=== PATIENT | female | born 1935 | race Caucasian/White ===

== ENCOUNTER 2016-11-09 16:12 | Inpatient (IN) | payer OTHER, MEDICARE ==
[2016-11-09] VITALS (9 sets, daily range): BP systolic 123–160; BP diastolic 67–95; PULSE 104–129; RESP 16–20; TEMP 97.2–97.8; O2SAT 86–97
[~2016-11-09] VITALS: Ht 162.6 cm; Wt 58.3 kg
[~2016-11-09 16:12] MED LIST: CART120C2 PO; FOLI400T PO; FOLI5CAP PO; LEFL1TAB3 PO; LEFL20 PO; METH2.5T PO; PANT40TA3 PO; PROT40TA PO; ULTR50TA5 PO
[2016-11-09] MEDS ORDERED: SODIUM CHLORIDE 0.9% FLUSH 5 ML FLUSH IVF PRN (16:30)
[2016-11-09] MEDS ORDERED: SODIUM CHLOR 0.9% 1000 ML INJ 1,000 ML IV ONE (16:30)
[2016-11-09] MEDS ORDERED: LEVOFLOXACIN 750 MG PREMIX INJ 150 ML IV ONE (16:30)
[2016-11-09] MEDS ORDERED: methylPREDNISolone SOD SUCC 125 MG/2 ML VIAL IVP ONE (16:30)
[2016-11-09] MEDS: RESP: ALBUTEROL 2.5 MG/IPRATROPIUM 0.5 MG NEB (SCH) INH ×3 (16:35→22:07)
[2016-11-09] MEDS ORDERED: PRED5TAB PO (16:36)
[2016-11-09] MEDS ORDERED: IPRAAER INH (16:36)
[2016-11-09] MEDS ORDERED: ALBU.5I NEB (16:36)
[2016-11-09] MEDS ORDERED: CART240C PO (16:37)
--- NOTE | 2016-11-09 17:01 | RADHPO ---
EXAM DATE/TIME: 11/09/2016 16:42 [place] COMPARISON: CHEST SINGLE AP, July 21, 2016, 20:50. INDICATIONS : Shortness of breath for 2 days MEDICAL HISTORY : Chronic obstructive pulmonary disease. Emphysema. Asthma SURGICAL HISTORY : None. ENCOUNTER: Initial ACUITY: 2 days PAIN SCORE: 0/10 LOCATION: Bilateral chest FINDINGS: A single view of the chest demonstrates the lungs to be symmetrically aerated without evidence of mas s, infiltrate or effusion. The cardiomediastinal contours are unremarkable. Osseous structures are intact. CONCLUSION: No acute disease. Tatyana Dee MD on November 09, 2016 at 16:59 Board Certified Radiologist. This report was verified electronically.
[2016-11-09 17:21] LABS: AUTOMATED NEUTROPHIL # 3.5 TH/MM3 (1.8-7.7); BASOPHIL # 0.1 TH/MM3 (0-0.2); EOSINOPHIL # 0.1 TH/MM3 (0-0.4); EOSINOPHIL % 1.5 % (0.0-4.0); HEMATOCRIT 38.9 % (35.0-46.0); HEMO FLAGS DIFF FINAL; LYMPH % 24.8 % (9.0-44.0); LYMPHOCYTE # 1.4 TH/MM3 (1.0-4.8); MEAN CELL VOLUME 94.6 FL (80.0-100.0); MEAN CORPUSCULAR HEMOGLOBIN 30.8 PG (27.0-34.0); MEAN CORPUSCULAR HGB CONC 32.5 % (32.0-36.0); MONO % 8.7 % (0.0-8.0); PLATELET COUNT 238 TH/MM3 (150-450); RED BLOOD COUNT 4.12 MIL/MM3 (4.00-5.30); RED CELL DISTRIBUTION WIDTH 16.2 % (11.6-17.2); WHITE BLOOD COUNT 5.6 TH/MM3 (4.0-11.0)
[2016-11-09 17:32] LABS: CHLORIDE 110 MEQ/L (98-107); POTASSIUM 3.6 MEQ/L (3.5-5.1); SODIUM (NA) 147 MEQ/L (136-145)
[2016-11-09 17:35] LABS: ANION GAP 10 MEQ/L (5-15); BICARBONATE 26.6 MEQ/L (21.0-32.0); BLOOD UREA NITROGEN 15 MG/DL (7-18)
[2016-11-09 17:38] LABS: ALT (GPT) 15 U/L (10-53); AST (GOT) 14 U/L (15-37); GLOMERULAR FILTRATION RATE 107 ML/MIN (>89)
[2016-11-09 17:40] LABS: TOTAL BILIRUBIN ADULT 0.3 MG/DL (0.2-1.0)
[2016-11-09 17:41] LABS: ALKALINE PHOSPHATASE 82 U/L (45-117)
--- NOTE | 2016-11-09 17:57 | PD ---
HPI Chief Complaint: Respiratory Distress Time Seen by Provider: 16:17 Travel History International Travel<30 days: No Contact w/Intl Traveler<30days: No Traveled to known affect area: No History of Present Illness HPI 81-year-old female presents with shortness of breath and cough and congestion over the past couple of days. She denies any fever or other concurrent complaints. She states she feels worse when she moves around. She denies other modifying factors. Quality is hard to catch breath. She states she typically only wears oxygen at night with 2 L but has had it where it over the past day or so but did not wear it here as it is not easily portable. She states that Dr. 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 She denies other modifying factors. PFSH Past Medical History Hx Anticoagulant Therapy: No Arthritis: Yes (PSORIATIC ARTHRITIS) Asthma: Yes Blood Disorders: No Heart Rhythm Problems: Yes (RAPID HEART RATE) Cancer: Yes (BASAL CELL CHIN, RIGHT FOREARM, NOSE) Cardiovascular Problems: Yes Chemotherapy: No COPD: Yes (2LPM NC HS PRN) Diabetes: No Diminished Hearing: No Endocrine: No Gastrointestinal Disorders: Yes (ESOPHAGEAL STRICTURES) Genitourinary: Yes (OCCASIONAL STRESS INCONTINENCE) Hypertension: Yes Immune Disorder: No Implanted Vascular Access Dvce: No Musculoskeletal: Yes Neurologic: Yes (RIGHT LEG WEAKNESS) Psychiatric: No Reproductive: No Respiratory: Yes Integumentary: Yes (shingles) Immunizations Current: Yes Radiation Therapy: No Shingles: Yes (10/2015) Thyroid Disease: No Tetanus Vaccination: Unknown Menopausal: Yes Tubal Ligation: Yes Past Surgical History AICD: Yes Arteriovenous Shunt: No Gynecologic Surgery: Yes (TUBAL LIGATION) Insulin Pump: No Joint Replacement: No Pacemaker: No Other Surgery: Yes (SEVERED ACHILLES TENDON - CASTED) Social History Alcohol Use: Yes (2-3 DRINKS PER NIGHT) Tobacco Use: No (QUIT ) Substance Use: No Allergies-Medications (Allergen,Severity, Reaction): Coded Allergies: Codeine (Verified Allergy, Mild, NAUSEA, 09/06/16) Sulfa (Verified Allergy, Mild, UNKNOWN, 09/06/16) Reported Meds & Prescriptions Reported Meds & Active Scripts Active Reported Cartia Xt (Diltiazem ER 24 HR) 240 Mg Caper 240 Mg PO DAILY Combivent Respimat Inh (Ipratropium-Albuterol Inh) 20-100 Retirement/Act Aero 1 Puff INH QID PRN Prednisone 5 Mg Tab 5 Mg PO DAILY Albuterol Neb (Albuterol Sulfate) 2.5 Mg/0.5 Ml Neb 2.5 Mg NEB TID NEB PRN Note: The Albuterol Sulfate Inhalation Solution is concentrated and must be diluted. Read complete instructions carefully before using. Methotrexate 2.5 Mg Tab 2.5 Mg PO Q7D Folic Acid 5 Mg Cap 5 Mg PO DAILY Leflunomide 20 Mg Tab 20 Mg PO DAILY Folic Acid 400 Mcg Tab 400 Mcg PO DAILY Protonix (Pantoprazole Sodium) 40 Mg Tab 40 Mg PO DAILY Ultram (Tramadol HCl) 50 Mg Tab 50 Mg PO Q6H PRN Review of Systems Except as stated in HPI: all other systems reviewed are Neg Physical Exam Narrative GENERAL: Well-nourished, well-developed patient. SKIN: Warm and dry. HEAD: Normocephalic and atraumatic. EYES: No injection or drainage. ENT: No nasal drainage noted. NECK: Supple, trachea midline. CARDIOVASCULAR: Regular rate and rhythm RESPIRATORY: Decreased aeration with faint expiratory wheezing bilaterally. No accessory muscle use. Tachypnea GASTROINTESTINAL: Abdomen soft, non-tender, nondistended. EXTREMITIES: No edema. NEUROLOGICAL: Awake and alert. Motor and sensory grossly within normal limits. Normal speech. Data Data Last Documented VS Vital Signs Date Time Temp Pulse Resp B/P Pulse Ox O2 Delivery O2 Flow Rate FiO2 11/09/16 17:54 128 16 156/77 96 Nasal Cannula 3 11/09/16 16:42 50 11/09/16 16:21 97.8 Orders Electrocardiogram (11/09/16 16:28) Complete Blood Count With Diff (11/09/16 16:28) Comprehensive Metabolic Panel (11/09/16 16:28) Chest, Single Ap (11/09/16 16:28) Ecg Monitoring (11/09/16 16:28) Iv Access Insert/Monitor (11/09/16 16:28) Oximetry (11/09/16 16:28) Oxygen Administration (11/09/16 16:28) Methylprednisolone So Succ Inj (Solumedr (11/09/16 16:30) Albuterol-Ipratropium Neb (Duoneb Neb) (11/09/16 16:30) Sodium Chloride 0.9% Flush (Ns Flush) (11/09/16 16:30) Lactic Acid Sepsis Protocol (11/09/16 16:28) Urinalysis - C+S If Indicated (11/09/16 16:28) Blood Culture (11/09/16 16:28) Sodium Chlor 0.9% 1000 Ml Inj (Ns 1000 M (11/09/16 16:30) Levofloxacin 750 Mg Premix Inj (Levaquin (11/09/16 16:30) Admit Order (Ed Use Only) (11/09/16 18:42) Labs Laboratory Tests Test 11/09/16 16:50 White Blood Count 5.6 TH/MM3 Red Blood Count 4.12 MIL/MM3 Hemoglobin 12.7 GM/DL Hematocrit 38.9 % Mean Corpuscular Volume 94.6 FL Mean Corpuscular Hemoglobin 30.8 PG Mean Corpuscular Hemoglobin 32.5 % Concent Red Cell Distribution Width 16.2 % Platelet Count 238 TH/MM3 Mean Platelet Volume 7.4 FL Neutrophils (%) (Auto) 64.0 % Lymphocytes (%) (Auto) 24.8 % Monocytes (%) (Auto) 8.7 % Eosinophils (%) (Auto) 1.5 % Basophils (%) (Auto) 1.0 % Neutrophils # (Auto) 3.5 TH/MM3 Lymphocytes # (Auto) 1.4 TH/MM3 Monocytes # (Auto) 0.5 TH/MM3 Eosinophils # (Auto) 0.1 TH/MM3 Basophils # (Auto) 0.1 TH/MM3 CBC Comment DIFF FINAL Differential Comment Sodium Level 147 MEQ/L Potassium Level 3.6 MEQ/L Chloride Level 110 MEQ/L Carbon Dioxide Level 26.6 MEQ/L Anion Gap 10 MEQ/L Blood Urea Nitrogen 15 MG/DL Creatinine 0.55 MG/DL Estimat Glomerular Filtration 107 ML/MIN Rate Random Glucose 106 MG/DL Lactic Acid Level 1.4 mmol/L Calcium Level 9.1 MG/DL Total Bilirubin 0.3 MG/DL Aspartate Amino Transf 14 U/L (AST/SGOT) Alanine Aminotransferase 15 U/L (ALT/SGPT) Alkaline Phosphatase 82 U/L Total Protein 6.5 GM/DL Albumin 3.4 GM/DL MDM Medical Decision Making Medical Screen Exam Complete: Yes Emergency Medical Condition: Yes Medical Record Reviewed: Yes (past history confirmed) Interpretation(s) CBC & BMP Diagram 11/09/16 16:50 Last 24 hours Impressions Chest X-Ray 11/09/16 1628 Signed Impressions: Service Date/Time: Wednesday, November 09, 2016 16:42 - CONCLUSION: No acute disease. Tatyana Dee MD EKG shows normal sinus rhythm without STEMI criteria artifact limits inferior leads Differential Diagnosis COPD exacerbation, pneumonia, URI, acute renal failure, anemia.... Narrative Course Will check blood work, chest x-ray and dose with DuoNeb's and Solu-Medrol and reevaluate Patient has improved aeration but still with inspiratory and expiratory wheezing and is now on 4 L of nasal cannula to maintain oxygen saturation. She normally is not on oxygen during the day. She agrees to admission for further care Physician Communication Physician Communication dr kumar agrees to admit Diagnosis Primary Impression: COPD (chronic obstructive pulmonary disease) Qualified Code: J44.1 - Chronic obstructive pulmonary disease with acute exacerbation Admitting Information Admitting Physician Requests: Admit Bonnie Raphael MD Nov 09, 2016 17:57
[2016-11-09] MEDS ORDERED: ACETAMINOPHEN 325 MG TAB PO PRN (18:45)
[2016-11-09] MEDS ORDERED: MAGNESIUM HYDROXIDE SUSP 30 ML CUP PO PRN (18:45)
[2016-11-09] MEDS ORDERED: ONDANSETRON HCL 4 MG/2 ML VIAL IVP PRN (18:45)
[2016-11-09] MEDS ORDERED: NALOXONE HCL 0.4 MG/ML AMP IV PRN (18:45)
[2016-11-09] MEDS ORDERED: RESP: ALBUTEROL 2.5 MG/3 ML NEB (PRN) INH (18:45)
[2016-11-09] MEDS ORDERED: BISACODYL 10 MG SUPP PR PRN (18:45)
[2016-11-09 19:02] LABS: BLOOD GAS BASE EXCESS -1.8 mmol/L (-2-2); BLOOD GAS CARBOXYHEMOGLOBIN 0.9 % (0-4); BLOOD GAS HCO3 23 mmol/L (22-26); BLOOD GAS METHEMOGLOBIN 2.4 % (0-2); BLOOD GAS O2 HGB SATURATION 90 % (90-100); BLOOD GAS OXYGEN CONTENT 14.9 Vol % (12.0-20.0); BLOOD GAS PCO2 40 mmHG (38-42); BLOOD GAS PO2 73 mmHG (61-120); BLOOD GAS TOTAL HGB 11.7 G/DL (12.0-16.0); CRITICAL VALUE NO; DRAW SITE RT RADIAL; FIO2 36 %; LITER FLOW 4 L/M; NUMBER OF ARTERIAL PUNCTURES 1; OXYGEN DEVICE NASAL CANNULA; STAT YES; TEMP CORR TO 98.6; ULNAR PULSE PRESENT
[2016-11-09] MEDS ORDERED: ENOXAPARIN SODIUM 40 MG/0.4 ML SYRINGE SQ SCH (20:00)
[2016-11-09] MEDS ORDERED: AZITHROMYCIN 250 MG TAB PO SCH (20:00)
[2016-11-09] MEDS: DOCUSATE SODIUM 100 MG CAP PO SCH (20:37)
[2016-11-09] MEDS: SODIUM CHLORIDE 0.9% FLUSH 5 ML FLUSH FLUSH SCH (20:38)
[2016-11-09] MEDS: SODIUM CHLORIDE 0.9% FLUSH 5 ML FLUSH FLUSH PRN (22:33)
[2016-11-09] MEDS: methylPREDNISolone SOD SUCC 125 MG/2 ML VIAL IVP SCH (22:33)
[2016-11-09 22:41] LABS: BLOOD, URINE NEG (NEG); GLUCOSE,URINE 250 mg/dL (NEG); KETONE, URINE 15 mg/dL (NEG); NITRITE,URINE NEG (NEG); PH, URINE 5.5 (5.0-8.5)
[2016-11-09 22:50] LABS: RBC, URINE 0-2 /hpf (0-3); SQUAMOUS EPITHELIAL CELL URINE 0-5 /hpf (0-5); URINE COLOR YELLOW (YELLW/STRAW); WBC, URINE 0-2 /hpf (0-5)
[2016-11-09 22:51] LABS: COMMENT (UR) CULT NOT INDICATED; CULTURE IF INDICATED CULT NOT INDICATED
[2016-11-10] MEDS ORDERED: METOPROLOL TARTRATE 25 MG TAB PO ONE
[2016-11-10 01:31] VITALS: PULSE 130
[2016-11-10] MEDS: RESP: ALBUTEROL 2.5 MG/IPRATROPIUM 0.5 MG NEB (SCH) INH ×3 (03:41→11:47)
[2016-11-10 04:00] VITALS: BP 141/83; PULSE 109; RESP 20; TEMP 96.3; O2SAT 95
[2016-11-10] MEDS: methylPREDNISolone SOD SUCC 125 MG/2 ML VIAL IVP SCH ×2 (06:06→10:36)
[2016-11-10] MEDS: SODIUM CHLORIDE 0.9% FLUSH 5 ML FLUSH FLUSH PRN (06:06)
[2016-11-10 08:00] VITALS: BP 148/87; PULSE 107; RESP 20; TEMP 96.3; O2SAT 96
[2016-11-10] MEDS: DOCUSATE SODIUM 100 MG CAP PO SCH (09:23)
[2016-11-10] MEDS: SODIUM CHLORIDE 0.9% FLUSH 5 ML FLUSH FLUSH SCH (09:23)
[2016-11-10 10:40] VITALS: PULSE 110
[2016-11-10 12:00] VITALS: BP 114/72; PULSE 111; RESP 20; TEMP 96.2; O2SAT 95
--- NOTE | 2016-11-10 13:24 | HHI.HP ---
[facility] Primary Care Physician Alvaro Pablo MD Admission Diagnosis copd exacerbation Diagnoses: (1) Chronic obstructive pulmonary disease with acute exacerbation Diagnosis: Principal Chief Complaint: Shortness of breath and dyspnea Travel History International Travel<30 Days: No Contact w/Intl Traveler <30 Da: No Traveled to Known Affected Are: No History of Present Illness 81-year-old female with known history of COPD, cirrhotic arthritis who presented to hospital because of shortness of breath and dyspnea. Patient states that over the last 1-1/2 weeks he has been having upper respiratory cold symptoms include runny nose, sore throat, cough, congestion, postnasal drip area history try to manage on her own and then calmed Monday morning her symptoms started getting worse with worsening shortness of breath. Cough with phlegm production that was white and then proceeded to be yellow coloration. She does have primary medical doctor Dr. Pablo and watch parts inspector Dr. Sinclair. He thought I called them for medication, however she did not. She did use the nebulizer treatment yesterday without any improvement. Because patient has significant and progressive shortness of breath and nebulizer treatment did not help she came to the hospital for evaluation. Patient does have chronic respiratory failure with home oxygen. She does use 2 L at night and has been using it more frequently during the day. The patient presented to the emergency department she was found to have 86% O2 saturation. She is separately put on oxygen and it improved to 93%. Blood gas was performed which O2 73, bicarbonate 23, O2 sat 90%. It is recommended by the ER physician that the patient be admitted for further evaluation management. Upon evaluating the patient this morning she states that she is feeling much better. She is able to breathe better. She is concerned that since she came up to the room she had increase in her blood pressure and heart rate. I discussed with her that the use of neurologic treatments and Solu-Medrol can cause artifact. Patient states that her cough has improved. She is able take deeper breaths. She denies any chest pain, shortness of breath, dyspnea at this time. Review of Systems Constitutional: DENIES: Diaphoretic episodes, Fatigue, Fever, Weight gain, Weight loss, Chills, Dizziness, Change in appetite, Night Sweats Eyes: DENIES: Blurred vision, Diplopia, Eye inflammation, Eye pain, Vision loss , Double Vision Ears, nose, mouth, throat: COMPLAINS OF: Running Nose, DENIES: Vertigo, Nasal discharge, Throat pain, Ear Pain, Sinus Pain Respiratory: COMPLAINS OF: Cough, Sputum production, Shortness of breath, DENIES: Apneas, Snoring, Wheezing, Hemoptysis Cardiovascular: DENIES: Chest pain, Palpitations, Syncope, Dyspnea on Exertion , Lower Extremity Edema, Orthopnea Gastrointestinal: DENIES: Abdominal pain, Black stools, Bloody stools, Constipation, Diarrhea, Nausea, Vomiting, Difficulty Swallowing, Anorexia Neurologic: DENIES: Abnormal gait, Headache, Localized weakness, Paresthesias, Seizures, Speech Problems, Tremor, Poor Balance Psychiatric: DENIES: Anxiety, Confusion, Mood changes, Depression Past Family Social History Past Medical History Chronic obstructive pulmonary disease Cirrhotic arthritis History of degenerative disc disease of the lumbar spine Past Surgical History Cataract surgery Tubal ligation Lumbar spine surgery Reported Medications Reported Meds & Active Scripts Active Reported Cartia Xt (Diltiazem ER 24 HR) 240 Mg Caper 240 Mg PO DAILY Combivent Respimat Inh (Ipratropium-Albuterol Inh) 20-100 Long-Term/Act Aero 1 Puff INH QID PRN Prednisone 5 Mg Tab 5 Mg PO DAILY Albuterol Neb (Albuterol Sulfate) 2.5 Mg/0.5 Ml Neb 2.5 Mg NEB TID NEB PRN Note: The Albuterol Sulfate Inhalation Solution is concentrated and must be diluted. Read complete instructions carefully before using. Methotrexate 2.5 Mg Tab 2.5 Mg PO Q7D Folic Acid 5 Mg Cap 5 Mg PO DAILY Leflunomide 20 Mg Tab 20 Mg PO DAILY Folic Acid 400 Mcg Tab 400 Mcg PO DAILY Protonix (Pantoprazole Sodium) 40 Mg Tab 40 Mg PO DAILY Ultram (Tramadol HCl) 50 Mg Tab 50 Mg PO Q6H PRN Allergies: Coded Allergies: Codeine (Verified Allergy, Mild, NAUSEA, 09/06/16) Sulfa (Verified Allergy, Mild, UNKNOWN, 09/06/16) Family History Reviewed is significant for mother being from stomach cancer Social History Patient quit smoking which is 50 years old. She smoked up to 2 pack a cigarettes a day since she was 17 years old. She does drink 2 vodka drinks daily, denies any illicit drugs Physical Exam Vital Signs Vital Signs Date Time Temp Pulse Resp B/P Pulse Ox O2 Delivery O2 Flow Rate FiO2 11/10/16 10:40 110 11/10/16 08:00 96.3 107 20 148/87 96 11/10/16 04:00 96.3 109 20 141/83 95 11/10/16 01:31 130 11/09/16 22:00 97.2 117 20 160/95 94 11/09/16 21:05 116 16 137/67 93 Nasal Cannula 3 11/09/16 20:05 120 16 133/71 92 Nasal Cannula 3 11/09/16 19:07 97 Nasal Cannula 3.00 11/09/16 19:05 124 11/09/16 19:05 129 16 150/73 93 Nasal Cannula 3 11/09/16 17:54 128 16 156/77 96 Nasal Cannula 3 11/09/16 17:27 18 96 Nasal Cannula 4 11/09/16 16:42 93 Venturi Mask 50 11/09/16 16:30 93 Venturi Mask 6.00 11/09/16 16:21 97.8 104 20 123/67 86 Physical Exam GENERAL: Well-developed, well-nourished, in no acute distress. alert and orientated HEENT: Head is normocephalic without any lesions or masses noted. Facial features are symmetric. Eyes: Pupils equal round reactive to light. Extraocular muscles are intact. Conjunctivae were clear. Oropharyngeal: Pharynx without any erythema edema. Tongue is midline without deviation. Buccal mucosa is moist without any masses or lesions NECK: Supple without any masses. Trachea midline no deviation. No JVD, no bruits are appreciated CARDIAC: Regular rhythm, regular rate. S1/S2 are heard. No murmurs gallops or rubs. LUNGS: Patient did have some coarse rhonchi noted, and patient cough and that cleared. There was some mild fine wheezing noted in the right lower lung. No rales. No use of accessory muscles on inspiration or expiration. ABDOMEN: Soft, nontender. Nondistended. Bowel sounds heard in all 4 quadrants. No organomegaly or masses. Negative rebound, negative guarding EXTREMITIES: No edema, pulses are equal bilaterally. No cyanosis or clubbing NEUROLOGY: Mood and affect appear appropriate. Cranial nerves II through XII grossly intact. Muscle strength 5/5 in upper and lower extremities bilaterally. Deep tendon reflexes are 2+ in upper and lower extremities bilaterally. Laboratory Laboratory Tests Test 11/09/16 11/09/16 11/09/16 16:50 18:53 20:30 White Blood Count 5.6 Red Blood Count 4.12 Hemoglobin 12.7 Hematocrit 38.9 Mean Corpuscular Volume 94.6 Mean Corpuscular Hemoglobin 30.8 Mean Corpuscular Hemoglobin 32.5 Concent Red Cell Distribution Width 16.2 Platelet Count 238 Mean Platelet Volume 7.4 Neutrophils (%) (Auto) 64.0 Lymphocytes (%) (Auto) 24.8 Monocytes (%) (Auto) 8.7 Eosinophils (%) (Auto) 1.5 Basophils (%) (Auto) 1.0 Neutrophils # (Auto) 3.5 Lymphocytes # (Auto) 1.4 Monocytes # (Auto) 0.5 Eosinophils # (Auto) 0.1 Basophils # (Auto) 0.1 CBC Comment DIFF FINAL Differential Comment Sodium Level 147 Potassium Level 3.6 Chloride Level 110 Carbon Dioxide Level 26.6 Anion Gap 10 Blood Urea Nitrogen 15 Creatinine 0.55 Estimat Glomerular Filtration 107 Rate Random Glucose 106 Lactic Acid Level 1.4 Calcium Level 9.1 Total Bilirubin 0.3 Aspartate Amino Transf 14 (AST/SGOT) Alanine Aminotransferase 15 (ALT/SGPT) Alkaline Phosphatase 82 Total Protein 6.5 Albumin 3.4 Blood Gas Puncture Site RT RADIAL Blood Gas Patient Temperature 98.6 Blood Gas HCO3 23 Blood Gas Base Excess -1.8 Blood Gas Oxygen Saturation 90 Arterial Blood pH 7.38 Arterial Blood Partial 40 Pressure CO2 Arterial Blood Partial 73 Pressure O2 Arterial Blood Oxygen Content 14.9 Arterial Blood 0.9 Carboxyhemoglobin Arterial Blood Methemoglobin 2.4 Blood Gas Hemoglobin 11.7 Oxygen Delivery Device NASAL CANNULA Blood Gas Liter Flow 4 Blood Gas Inspired Oxygen 36 Urine Color YELLOW Urine Turbidity CLEAR Urine pH 5.5 Urine Specific [place] 1.025 Urine Protein NEG Urine Glucose (UA) 250 Urine Ketones 15 Urine Occult Blood NEG Urine Nitrite NEG Urine Bilirubin NEG Urine Leukocyte Esterase NEG Urine RBC 0-2 Urine WBC 0-2 Urine Squamous Epithelial 0-5 Cells Urine Bacteria NONE Microscopic Urinalysis Comment CULT NOT INDICATED Date/Time Procedure Status Source Growth 1/18/17 16:55 Aerobic Blood Culture - Preliminary Resulted Blood Peripheral NO GROWTH IN 1 DAY 11/09/16 16:55 Anaerobic Blood Culture - Preliminary Resulted Blood Peripheral NO GROWTH IN 1 DAY Result Diagram: 11/09/16 1650 11/09/16 1650 Imaging Last Impressions Chest X-Ray 11/09/16 1628 Signed Impressions: Service Date/Time: Wednesday, November 09, 2016 16:42 - CONCLUSION: No acute disease. Tatyana Dee MD Assessment and Plan Assessment and Plan Acute on chronic respiratory failure secondary to Chronic objective pulmonary disease with acute exacerbation Continue O2 someone takes maintain O2 sats greater 92% Continue Solu-Medrol Continue duo neb treatments Continue Zithromax Elevated blood pressure with mild tachycardia Likely secondary to nebulizer treatment, Solu-Medrol Resume patient's Cardizem 240 mg daily DVT prevention Subcutaneous Lovenox Written by Guru Diez PA-C, acting as scribe for Dr. Wilson on 11/10/16 at 1330. The documentation accurately reflects the work and decisions performed face-to- face by Dr. Wilson on 11/10/16 at 1330 Discharge disposition Discharge home in stable condition Activity: Ad violeta. Diet: Healthy heart diet Medications per medication reconciliation Follow-up with primary medical doctor in one week. Physician Certification 2 Midnight Certification Type: Admission for Inpatient Services Order for Inpatient Services The services are ordered in accordance with Medicare regulations or non- Medicare payer requirements, as applicable. In the case of services not specified as inpatient-only, they are appropriately provided as inpatient services in accordance with the 2-midnight benchmark. Estimated LOS (days): 1 days is the estimated time the patient will need to remain in the hospital, assuming treatment plan goals are met and no additional complications. Post-Hospital Plan: Not yet determined Guru Diez Nov 10, 2016 13:24
[2016-11-10] MEDS ORDERED: IPRASOL INH (13:28)
--- NOTE | 2016-11-10 13:28 | HHI.DCPOC ---
Discharge Care Plan Diagnosis: (1) Chronic obstructive pulmonary disease with acute exacerbation Goals to Promote Your Health * To prevent worsening of your condition and complications * To maintain your health at the optimal level Directions to Meet Your Goals Take your medications as prescribed Follow your dietary instruction Follow activity as directed Keep your appointments as scheduled Take your immunizations and boosters as scheduled If your symptoms worsen call your PCP, if no PCP go to Urgent Care Center or Emergency Room Smoking is Dangerous to Your Health. Avoid second hand smoke Call the 24-hour hour crisis hotline for domestic abuse at Guru Diez Nov 10, 2016 13:28
[2016-11-10] MEDS ORDERED: DILTIAZEM-CD 240 MG CAP ER PO SCH (13:30)
[2016-11-10] MEDS ORDERED: PRED5PAK PO (13:32)
[2016-11-10] MEDS ORDERED: ZITH250T PO (13:32)
--- NOTE | 2016-11-10 21:13 | EKG ---
Date Performed: 11/09/2016 Time Performed: 17:11:06 PTAGE: 81 years EKG: Sinus tachycardia. Left axis deviation Anterior T wave changes are nonspecific Borderline E CG PREVIOUS TRACING : 07/21/2016 21.42 DOCTOR: Vishal Bruce Interpretating Date/Time 11/10/2016 21:05:59
== END 2016-11-10 14:55 | disposition home or self-care (01) | DRG 190 ==
LOC: PHED 16:12 → PHEDA 18:43 → PH3B 21:51
PROVIDERS: ADMIT Family Medicine; ATTEND Family Medicine
DX: J44.1 Chronic obstructive pulmonary disease with (acute) exacerbation (principal); J96.20 Acute and chronic respiratory failure, unspecified whether with hypoxia or hypercapnia; Z99.81 Dependence on supplemental oxygen; I10 Essential (primary) hypertension; R00.0 Tachycardia, unspecified; L40.50 Arthropathic psoriasis, unspecified; Z87.891 Personal history of nicotine dependence; Z85.828 Personal history of other malignant neoplasm of skin; Z88.5 Allergy status to narcotic agent; Z88.2 Allergy status to sulfonamides
CPT/HCPCS: 36600; 71010; 80053; 81001; 82805; 83605; 85025; 87040; 93005; 94640; 94664; 96365; 96366; 96375; J1650; J1956; J2930; J7030

== ENCOUNTER 2016-11-14 14:29 | Inpatient (IN) | payer OTHER, MEDICARE ==
[~2016-11-14] VITALS: Ht 162.6 cm; Wt 57.8 kg
[2016-11-14] VITALS (9 sets, daily range): BP systolic 110–142; BP diastolic 66–74; PULSE 97–114; RESP 18–28; TEMP 97.8–98.2; O2SAT 82–95
[~2016-11-14 14:29] MED LIST changes: -CART120C2 PO; +CART240C PO; +IPRASOL INH; -LEFL20 PO; -PANT40TA3 PO; +PRED5PAK PO; +ZITH250T PO
[2016-11-14] MEDS: RESP: ALBUTEROL 2.5 MG/IPRATROPIUM 0.5 MG NEB (SCH) INH ×3 (14:48→19:54)
--- NOTE | 2016-11-14 14:52 | PD ---
HPI Chief Complaint: Respiratory Symptoms Time Seen by Provider: 14:42 Travel History International Travel<30 days: No Contact w/Intl Traveler<30days: No Traveled to known affect area: No History of Present Illness HPI 81yo F with PMH of COPD on home O2 2L at night presents to the ED with c/o worsening sob for 3 days. Pt was admitted for COPD exacerbation on 11/09/16-11/10. Pt states she has been using her treatments at home but still saturating in the 80s. +Cough. Pt denies any fever, chest pain, n/v, abdominal pain, weakness or numbness. PFSH Past Medical History Hx Anticoagulant Therapy: No Arthritis: Yes (PSORIATIC ARTHRITIS) Asthma: No Blood Disorders: No Heart Rhythm Problems: Yes (RAPID HEART RATE) Cancer: Yes (BASAL CELL CHIN, RIGHT FOREARM, NOSE, AND UPPER LIP) Cardiovascular Problems: Yes Chemotherapy: No COPD: Yes (2LPM NC HS PRN) Diabetes: No Diminished Hearing: No Endocrine: No Gastrointestinal Disorders: Yes (ESOPHAGEAL STRICTURES) Genitourinary: Yes (OCCASSIONAL INCONTINENCE ) Hypertension: Yes Immune Disorder: No Implanted Vascular Access Dvce: No Musculoskeletal: Yes Neurologic: Yes (RIGHT LEG WEAKNESS) Psychiatric: No Reproductive: No Respiratory: Yes Integumentary: Yes (shingles) Immunizations Current: Yes Radiation Therapy: No Shingles: Yes (10/2015) Thyroid Disease: No Tetanus Vaccination: > 5 Years Influenza Vaccination: Yes ?: Not Menopausal: Yes Tubal Ligation: Yes Past Surgical History AICD: Yes Arteriovenous Shunt: No Gynecologic Surgery: Yes (TUBAL LIGATION) Insulin Pump: No Joint Replacement: No Pacemaker: No Other Surgery: Yes (SEVERED ACHILLES TENDON - CASTED) Social History Alcohol Use: Yes (2-3 DRINKS PER NIGHT) Tobacco Use: No (QUIT 1980S) Substance Use: No Allergies-Medications (Allergen,Severity, Reaction): Coded Allergies: Codeine (Verified Allergy, Mild, NAUSEA, 11/14/16) Sulfa (Verified Allergy, Mild, UNKNOWN, 11/14/16) Reported Meds & Prescriptions Reported Meds & Active Scripts Active Prednisone (21) 5 mg tab Dose Pack (Prednisone) 5 Mg Dspk 5 Mg PO DIRECTED Zithromax (Azithromycin) 250 Mg Tab 500 Mg PO DAILY 5 Days Duoneb (Ipratropium-Albuterol Neb) 0.5-2.5 Mg/3 Ml Neb 1 Ampule INH Q4HR NEB 30 Days Reported Combivent Respimat Inh (Ipratropium-Albuterol Inh) 20-100 Longterm/Act Aero 1 Puff INH QID PRN Cartia Xt (Diltiazem ER 24 HR) 240 Mg Caper 240 Mg PO DAILY Methotrexate 2.5 Mg Tab 2.5 Mg PO Q7D Leflunomide 20 Mg Tab 20 Mg PO DAILY Folic Acid 400 Mcg Tab 400 Mcg PO DAILY Protonix (Pantoprazole Sodium) 40 Mg Tab 40 Mg PO DAILY Review of Systems Except as stated in HPI: all other systems reviewed are Neg Physical Exam Narrative GENERAL: 81yo F in mild distress. SKIN: Warm and dry. HEAD: Atraumatic. Normocephalic. EYES: Pupils equal and round. No scleral icterus. No injection or drainage. ENT: No nasal bleeding or discharge. Mucous membranes pink and moist. NECK: Trachea midline. No JVD. CARDIOVASCULAR: Mildly tachycardic. RESPIRATORY: +accessory muscle use. Coarse breath sounds bilaterally. Tachypneic. GASTROINTESTINAL: Abdomen soft, non-tender, nondistended. Hepatic and splenic margins not palpable. MUSCULOSKELETAL: No obvious deformities. No clubbing. No cyanosis. Trace edema. NEUROLOGICAL: Awake and alert. No obvious cranial nerve deficits. Motor grossly within normal limits. Normal speech. PSYCHIATRIC: Appropriate mood and affect; insight and judgment normal. Data Data Last Documented VS Vital Signs Date Time Temp Pulse Resp B/P Pulse Ox O2 Delivery O2 Flow Rate FiO2 11/14/16 16:20 101 18 137/74 94 Nasal Cannula 2 11/14/16 14:45 98.2 Orders Complete Blood Count With Diff (11/14/16 14:46) Basic Metabolic Panel (Bmp) (11/14/16 14:46) B-Type Natriuretic Peptide (11/14/16 14:46) Act Partial Throm Time (Ptt) (11/14/16 14:46) Prothrombin Time / Inr (Pt) (11/14/16 14:46) Magnesium (Mg) (11/14/16 14:46) Troponin I (11/14/16 14:46) Iv Access Insert/Monitor (11/14/16 14:46) Electrocardiogram (11/14/16 14:46) Ecg Monitoring (11/14/16 14:46) Oximetry (11/14/16 14:46) Oxygen Administration (11/14/16 14:46) Chest, Single Ap (11/14/16 14:46) Sodium Chloride 0.9% Flush (Ns Flush) (11/14/16 15:00) Methylprednisolone So Succ Inj (Solumedr (11/14/16 15:00) Albuterol-Ipratropium Neb (Duoneb Neb) (11/14/16 15:00) Arterial Blood Gas (Abg) (11/14/16 ) Lactic Acid Sepsis Protocol (11/14/16 14:48) Albuterol Neb (Albuterol Neb) (11/14/16 17:00) Potassium Chloride (Kcl) (11/14/16 17:15) Ct Pulmonary Angiogram (11/14/16 ) Admit Order (Ed Use Only) (11/14/16 18:19) Labs Laboratory Tests Test 11/14/16 11/14/16 14:55 15:00 Blood Gas Puncture Site LT RADIAL Blood Gas Patient Temperature 98.6 Blood Gas HCO3 25 mmol/L Blood Gas Base Excess 1.5 mmol/L Blood Gas Oxygen Saturation 90 % Arterial Blood pH 7.47 Arterial Blood Partial 35 mmHG Pressure CO2 Arterial Blood Partial 74 mmHG Pressure O2 Arterial Blood Oxygen Content 16.3 Vol % Arterial Blood 1.3 % Carboxyhemoglobin Arterial Blood Methemoglobin 2.1 % Blood Gas Hemoglobin 12.9 G/DL Oxygen Delivery Device NASAL CANNULA Blood Gas Liter Flow 4 L/M White Blood Count 13.9 TH/MM3 Red Blood Count 4.24 MIL/MM3 Hemoglobin 13.3 GM/DL Hematocrit 40.0 % Mean Corpuscular Volume 94.4 FL Mean Corpuscular Hemoglobin 31.3 PG Mean Corpuscular Hemoglobin 33.1 % Concent Red Cell Distribution Width 16.8 % Platelet Count 260 TH/MM3 Mean Platelet Volume 7.2 FL Neutrophils (%) (Auto) 79.6 % Lymphocytes (%) (Auto) 6.8 % Monocytes (%) (Auto) 11.2 % Eosinophils (%) (Auto) 0.2 % Basophils (%) (Auto) 2.2 % Neutrophils # (Auto) 11.1 TH/MM3 Lymphocytes # (Auto) 0.9 TH/MM3 Monocytes # (Auto) 1.6 TH/MM3 Eosinophils # (Auto) 0.0 TH/MM3 Basophils # (Auto) 0.3 TH/MM3 CBC Comment DIFF FINAL Differential Comment Prothrombin Time 10.0 SEC Prothromb Time International 0.9 RATIO Ratio Activated Partial 23.3 SEC Thromboplast Time Sodium Level 145 MEQ/L Potassium Level 3.3 MEQ/L Chloride Level 109 MEQ/L Carbon Dioxide Level 27.9 MEQ/L Anion Gap 8 MEQ/L Blood Urea Nitrogen 13 MG/DL Creatinine 0.57 MG/DL Estimat Glomerular Filtration 102 ML/MIN Rate Random Glucose 107 MG/DL Lactic Acid Level 1.5 mmol/L Calcium Level 8.5 MG/DL Magnesium Level 2.3 MG/DL Troponin I LESS THAN 0.02 NG/ML B-Type Natriuretic Peptide 65 PG/ML MDM Medical Decision Making Medical Screen Exam Complete: Yes Emergency Medical Condition: Yes Interpretation(s) EKG: NSR 94bpm. Normal axis. Differential Diagnosis COPD exacerbation vs. PE vs. PNA vs. ACS Narrative Course 81yo F with worsening sob. Pt with coarse breath sounds bilaterally and saturating at mid 80s initially. Duonebs x3 and methylprednisolone 125mg IV give. Pt saturating low 90s with 4L NC. Pt feels a little better so placed pt back on 2L NC. However, pt's saturation drops to 82% on 2L NC. Pt normally uses 2 liters of NC and only at night. Labs reviewed, mild leukocytosis at 13.9. Lactic acid 1.5. K: 3.3, replaced orally. Troponin negative. CXR negative. Pt given another albuterol neb and will admit pt for observation for COPD exacerbation. Although I think it is likely COPD exacerbation, will obtain CT angio to r/o PE as well. CT angio showed no PE but dense consolidation right lung base characteristic of pneumonia or aspiration. NS IVF x1 given. Pt given levofloxacin by admitting team. Diagnosis Primary Impression: Pneumonia Qualified Code: J18.1 - Pneumonia of right lower lobe due to infectious organism Additional Impression: COPD (chronic obstructive pulmonary disease) Qualified Code: J44.9 - Chronic obstructive pulmonary disease, unspecified COPD type Admitting Information Admitting Physician Requests: Observation Tran Moore DO Nov 14, 2016 14:52
[2016-11-14 15:00] LABS: BLOOD GAS BASE EXCESS 1.5 mmol/L (-2-2); BLOOD GAS CARBOXYHEMOGLOBIN 1.3 % (0-4); BLOOD GAS HCO3 25 mmol/L (22-26); BLOOD GAS METHEMOGLOBIN 2.1 % (0-2); BLOOD GAS O2 HGB SATURATION 90 % (90-100); BLOOD GAS OXYGEN CONTENT 16.3 Vol % (12.0-20.0); BLOOD GAS PCO2 35 mmHG (38-42); BLOOD GAS PO2 74 mmHG (61-120); BLOOD GAS TOTAL HGB 12.9 G/DL (12.0-16.0); CRITICAL VALUE NO; DRAW SITE LT RADIAL; LITER FLOW 4 L/M; NUMBER OF ARTERIAL PUNCTURES 1; OXYGEN DEVICE NASAL CANNULA; STAT YES; TEMP CORR TO 98.6; ULNAR PULSE PRESENT
[2016-11-14] MEDS ORDERED: SODIUM CHLORIDE 0.9% FLUSH 5 ML FLUSH IVF PRN ×2 (15:00→18:30)
[2016-11-14] MEDS ORDERED: methylPREDNISolone SOD SUCC 125 MG/2 ML VIAL IVP ONE (15:00)
[2016-11-14 15:12] LABS: AUTOMATED NEUTROPHIL # 11.1 TH/MM3 (1.8-7.7); BASOPHIL # 0.3 TH/MM3 (0-0.2); BASOPHIL % 2.2 % (0.0-2.0); EOSINOPHIL % 0.2 % (0.0-4.0); LYMPH % 6.8 % (9.0-44.0); LYMPHOCYTE # 0.9 TH/MM3 (1.0-4.8); MEAN CELL VOLUME 94.4 FL (80.0-100.0); MEAN CORPUSCULAR HEMOGLOBIN 31.3 PG (27.0-34.0); MEAN CORPUSCULAR HGB CONC 33.1 % (32.0-36.0); MONO % 11.2 % (0.0-8.0); NEUT % 79.6 % (16.0-70.0); PLATELET COUNT 260 TH/MM3 (150-450); RED BLOOD COUNT 4.24 MIL/MM3 (4.00-5.30); RED CELL DISTRIBUTION WIDTH 16.8 % (11.6-17.2); WHITE BLOOD COUNT 13.9 TH/MM3 (4.0-11.0)
[2016-11-14 15:13] LABS: HEMO FLAGS DIFF FINAL
[2016-11-14 15:20] LABS: CHLORIDE 109 MEQ/L (98-107); POTASSIUM 3.3 MEQ/L (3.5-5.1); SODIUM (NA) 145 MEQ/L (136-145)
[2016-11-14 15:23] LABS: ANION GAP 8 MEQ/L (5-15); BICARBONATE 27.9 MEQ/L (21.0-32.0); BLOOD UREA NITROGEN 13 MG/DL (7-18); MAGNESIUM 2.3 MG/DL (1.5-2.5)
[2016-11-14 15:24] LABS: APTT (PATIENT) 23.3 SEC (24.3-30.1); INTERNATIONAL NORMALIZED RATIO 0.9 RATIO
[2016-11-14 15:26] LABS: GLOMERULAR FILTRATION RATE 102 ML/MIN (>89)
--- NOTE | 2016-11-14 15:33 | RADHPO ---
EXAM DATE/TIME: 11/14/2016 14:49 [facility] COMPARISON: CHEST SINGLE AP, November 09, 2016, 16:42. INDICATIONS : Short of breath. MEDICAL HISTORY : Chronic obstructive pulmonary disease. SURGICAL HISTORY : None. ENCOUNTER: Initial ACUITY: 2 days PAIN SCORE: 0/10 LOCATION: Bilateral chest FINDINGS: A single view of the chest demonstrates the lungs to be symmetrically aerated without evidence of mas s, infiltrate or effusion. The cardiomediastinal contours are unremarkable. Osseous structures are intact. CONCLUSION: 1. No acute cardiopulmonary findings. Dez Ahmadi MD on November 14, 2016 at 15:30 Board Certified Radiologist. This report was verified electronically.
[2016-11-14] MEDS ORDERED: RESP: ALBUTEROL 2.5 MG/3 ML NEB (SCH) NEB ONE (17:00)
[2016-11-14] MEDS ORDERED: POTASSIUM CHLORIDE 20 MEQ CONTROLLED RELEASE TAB PO ONE (17:15)
[2016-11-14] MEDS ORDERED: RESP: ALBUTEROL 2.5 MG/IPRATROPIUM 0.5 MG NEB (PRN) NEB (18:45)
--- NOTE | 2016-11-14 18:57 | RADHPO ---
EXAM DATE/TIME: 11/14/2016 18:09 [facility] COMPARISON: No previous studies available for comparison. INDICATIONS : Short of breath. IV CONTRAST: 89 cc Omnipaque 350 (iohexol) IV RADIATION DOSE: 7.81 CTDIvol (mGy) MEDICAL HISTORY : Cardiovascular disease. SURGICAL HISTORY : Tubal ligation. ENCOUNTER: Initial ACUITY: 1 day PAIN SCALE: 5/10 LOCATION: chest TECHNIQUE: Volumetric scanning of the chest was performed using a pulmonary embolism protocol MIP images were re constructed. Using automated exposure control and adjustment of the mA and/or kV according to patien t size, radiation dose was kept as low as reasonably achievable to obtain optimal diagnostic quality images. FINDINGS: There is dense consolidation at the right lung base posteriorly most characteristic of pneumonia with peribronchial thickening. There is underlying moderate emphysema. No pleural or pericardial effusion . Mild coronary calcifications. 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 CONCLUSION: 1. Dense consolidation in right lung base posteriorly with peribronchial thickening most characterist ic of pneumonia or aspiration. 2. 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 Peña Mendez MD on November 14, 2016 at 18:52 Board Certified Radiologist. This report was verified electronically.
[2016-11-14] MEDS ORDERED: IOHEXOL 350 MG/ML 10 ML VIAL (for RAD DIAG) IV ONE (19:05)
[2016-11-14] MEDS: ENOXAPARIN SODIUM 40 MG/0.4 ML SYRINGE SQ SCH (19:07)
[2016-11-14] MEDS ORDERED: IPRAAER INH (19:29)
[2016-11-14] MEDS ORDERED: SODIUM CHLOR 0.9% 1000 ML INJ 1,000 ML IV ONE (19:30)
[2016-11-14] MEDS: LEVOFLOXACIN 750 MG PREMIX INJ 150 ML IV SCH (19:53)
[2016-11-14] MEDS ORDERED: AZITHROMYCIN 250 MG TAB PO SCH (20:00)
[2016-11-14] MEDS: SODIUM CHLORIDE 0.9% FLUSH 5 ML FLUSH IVF SCH (21:07)
[2016-11-14] MEDS: methylPREDNISolone SOD SUCC 125 MG/2 ML VIAL IVP SCH (21:07)
[2016-11-15] VITALS (7 sets, daily range): BP systolic 130–142; BP diastolic 71–89; PULSE 95–100; RESP 16–20; TEMP 96.9–98.1; O2SAT 92–98
[2016-11-15] MEDS: RESP: ALBUTEROL 2.5 MG/IPRATROPIUM 0.5 MG NEB (SCH) INH ×7 (00:54→23:34)
[2016-11-15] MEDS: methylPREDNISolone SOD SUCC 125 MG/2 ML VIAL IVP SCH ×4 (02:58→21:15)
[2016-11-15 06:38] LABS: AUTOMATED NEUTROPHIL # 7.3 TH/MM3 (1.8-7.7); BASOPHIL % 0.1 % (0.0-2.0); HEMATOCRIT 36.2 % (35.0-46.0); HEMO FLAGS DIFF FINAL; LYMPH % 2.5 % (9.0-44.0); LYMPHOCYTE # 0.2 TH/MM3 (1.0-4.8); MEAN CELL VOLUME 94.7 FL (80.0-100.0); MEAN CORPUSCULAR HEMOGLOBIN 30.4 PG (27.0-34.0); MONO % 2.3 % (0.0-8.0); NEUT % 95.1 % (16.0-70.0); PLATELET COUNT 225 TH/MM3 (150-450); RED BLOOD COUNT 3.82 MIL/MM3 (4.00-5.30); RED CELL DISTRIBUTION WIDTH 17.1 % (11.6-17.2); WHITE BLOOD COUNT 7.7 TH/MM3 (4.0-11.0)
[2016-11-15 06:49] LABS: POTASSIUM 3.9 MEQ/L (3.5-5.1)
[2016-11-15] MEDS: LEFLUNOMIDE 20 MG PO SCH (09:00)
[2016-11-15] MEDS: PANTOPRAZOLE SOD 40 MG DELAYED RELEASE TAB PO SCH (09:23)
[2016-11-15] MEDS: SODIUM CHLORIDE 0.9% FLUSH 5 ML FLUSH IVF SCH ×2 (09:23→21:15)
[2016-11-15] MEDS: DILTIAZEM-CD 240 MG CAP ER PO SCH (09:23)
--- NOTE | 2016-11-15 14:51 | HHI.HP ---
cc: Alvaro Pablo MD [facility] Alvaro Pablo MD Admission Diagnosis COPD exacerbation Diagnoses: (1) Sepsis Diagnosis: Principal (2) Chronic obstructive pulmonary disease with acute exacerbation Diagnosis: Principal (3) Acute on chronic respiratory failure Diagnosis: Principal (4) Pneumonia Diagnosis: Principal (5) Leukocytosis Diagnosis: Principal (6) Hypokalemia Diagnosis: Principal Chief Complaint: SOB Travel History International Travel<30 Days: No Contact w/Intl Traveler <30 Da: No Traveled to Known Affected Are: No Sepsis Criteria SIRS Criteria (2 or more): Heart rate over 90, WBC > 42429, < 4000 or > 10% bands Sepsis Criteria (SIRS+source): Infect source susp/known Criteria Outcome: Meets sepsis criteria History of Present Illness 81-year-old female with history of COPD and psoriatic arthritis return to the ED for shortness of breath. The patient was recently admitted this month for COPD exacerbation on and discharged on 11/10/16. Patient states she felt good on that when she went home that she started deteriorating Monday and states she played cards on Monday. She states when she woke up at 3 or 4 AM on Monday she could barely walk back from the bathroom because she was feeling so bad. Patient has been increasing oxygen use during the day time since she was hospitalized. Denies any fevers or chills. Denies any nausea or vomiting. Patient's social studies teacher is Dr. Sinclair. Review of Systems Other ROS x 10 negative unless otherwise states above. Past Family Social History Past Medical History Chronic obstructive pulmonary disease Psoriatic arthritis History of degenerative disc disease of the lumbar spine Past Surgical History Cataract surgery Tubal ligation Lumbar spine surgery Reported Medications Reported Meds & Active Scripts Active Prednisone (21) 5 mg tab Dose Pack (Prednisone) 5 Mg Dspk 5 Mg PO DIRECTED Zithromax (Azithromycin) 250 Mg Tab 500 Mg PO DAILY 5 Days Duoneb (Ipratropium-Albuterol Neb) 0.5-2.5 Mg/3 Ml Neb 1 Ampule INH Q4HR NEB 30 Days Reported Combivent Respimat Inh (Ipratropium-Albuterol Inh) 20-100 Correction/Act Aero 1 Puff INH QID PRN Cartia Xt (Diltiazem ER 24 HR) 240 Mg Caper 240 Mg PO DAILY Methotrexate 2.5 Mg Tab 2.5 Mg PO Q7D Leflunomide 20 Mg Tab 20 Mg PO DAILY Folic Acid 400 Mcg Tab 400 Mcg PO DAILY Protonix (Pantoprazole Sodium) 40 Mg Tab 40 Mg PO DAILY Allergies: Coded Allergies: Codeine (Verified Allergy, Mild, NAUSEA, 11/14/16) Sulfa (Verified Allergy, Mild, UNKNOWN, 11/14/16) Family History Per EMR mother from stomach cancer Social History Per EMR, she smoked up to 2 pack a cigarettes a day since she was 17 years old. She has 2 drinks daily, denies any illicit drugs. Quit smoking in the . Physical Exam Vital Signs Vital Signs Date Time Temp Pulse Resp B/P Pulse Ox O2 Delivery O2 Flow Rate FiO2 11/15/16 12:00 98.0 95 18 138/85 98 11/15/16 08:02 93 Nasal Cannula 4.00 11/15/16 08:00 98.1 100 20 142/89 94 11/15/16 04:00 97.6 98 16 141/85 95 11/15/16 00:00 97.6 98 16 141/85 95 11/14/16 23:00 98.1 97 20 110/66 95 Nasal Cannula 4 11/14/16 19:54 92 Nasal Cannula 4.00 11/14/16 19:20 97.8 103 20 142/69 93 Nasal Cannula 4 11/14/16 19:10 105 20 93 Nasal Cannula 4 11/14/16 18:40 106 18 139/69 93 Nasal Cannula 4 11/14/16 16:20 101 18 137/74 94 Nasal Cannula 2 11/14/16 16:20 94 Nasal Cannula 2 11/14/16 15:15 93 Nasal Cannula 4 11/14/16 15:15 93 Nasal Cannula 4 Physical Exam GENERAL: This is a well-nourished, well-developed patient, in no apparent distress. SKIN: No rashes, ecchymoses or lesions. 3 sutures R mid back. HEAD: Atraumatic. Normocephalic. EYES: No scleral icterus. No injection or drainage. NECK: Trachea midline. CARDIOVASCULAR: Regular rate and rhythm without murmurs. RESPIRATORY: Tight with decreased inspiratory breath sounds. Mild coarse sounds anteriorly. GASTROINTESTINAL: Normoactive bowel sounds. Abdomen soft, non-tender, nondistended. No guarding. MUSCULOSKELETAL: No lower extremity edema bilaterally. NEUROLOGICAL: Awake and alert. Motor grossly within normal limits. Normal speech. Laboratory Laboratory Tests Test 11/14/16 11/14/16 11/15/16 14:55 15:00 06:15 Blood Gas Puncture Site LT RADIAL Blood Gas Patient Temperature 98.6 Blood Gas HCO3 25 Blood Gas Base Excess 1.5 Blood Gas Oxygen Saturation 90 Arterial Blood pH 7.47 Arterial Blood Partial 35 Pressure CO2 Arterial Blood Partial 74 Pressure O2 Arterial Blood Oxygen Content 16.3 Arterial Blood 1.3 Carboxyhemoglobin Arterial Blood Methemoglobin 2.1 Blood Gas Hemoglobin 12.9 Oxygen Delivery Device NASAL CANNULA Blood Gas Liter Flow 4 White Blood Count 13.9 7.7 Red Blood Count 4.24 3.82 Hemoglobin 13.3 11.6 Hematocrit 40.0 36.2 Mean Corpuscular Volume 94.4 94.7 Mean Corpuscular Hemoglobin 31.3 30.4 Mean Corpuscular Hemoglobin 33.1 32.0 Concent Red Cell Distribution Width 16.8 17.1 Platelet Count 260 225 Mean Platelet Volume 7.2 7.5 Neutrophils (%) (Auto) 79.6 95.1 Lymphocytes (%) (Auto) 6.8 2.5 Monocytes (%) (Auto) 11.2 2.3 Eosinophils (%) (Auto) 0.2 0.0 Basophils (%) (Auto) 2.2 0.1 Neutrophils # (Auto) 11.1 7.3 Lymphocytes # (Auto) 0.9 0.2 Monocytes # (Auto) 1.6 0.2 Eosinophils # (Auto) 0.0 0.0 Basophils # (Auto) 0.3 0.0 CBC Comment DIFF FINAL DIFF FINAL Differential Comment Prothrombin Time 10.0 Prothromb Time International 0.9 Ratio Activated Partial 23.3 Thromboplast Time Sodium Level 145 144 Potassium Level 3.3 3.9 Chloride Level 109 111 Carbon Dioxide Level 27.9 25.0 Anion Gap 8 8 Blood Urea Nitrogen 13 13 Creatinine 0.57 0.47 Estimat Glomerular Filtration 102 128 Rate Random Glucose 107 160 Lactic Acid Level 1.5 Calcium Level 8.5 8.6 Magnesium Level 2.3 Troponin I LESS THAN 0.02 B-Type Natriuretic Peptide 65 Result Diagram: 11/15/16 0615 11/15/16 0615 Imaging Last Impressions Chest X-Ray 11/14/16 1446 Signed Impressions: Service Date/Time: Monday, November 14, 2016 14:49 - CONCLUSION: 1. No acute cardiopulmonary findings. Dez Ahmadi MD CT Angiography 11/14/16 0000 Signed Impressions: Service Date/Time: Monday, November 14, 2016 18:09 - CONCLUSION: 1. Dense consolidation in right lung base posteriorly with peribronchial thickening most characteristic of pneumonia or aspiration. 2. 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 Peña Mendez MD Assessment and Plan Assessment and Plan 81-year-old female with: Sepsis: Tachycardic 114 on arrival. White blood cell count 13.9. Source of infection pneumonia. Lactic acid normal. -Blood cultures 2 -Antibiotics as below -Patient received 1 L bolus IVF in ED -Monitor vitals COPD exacerbation/Pneumonia/Respiratory failure: O2 82% on RA. Patient has been increasing O2 use at home. Chest x-ray personally interpreted without acute disease, but CT pulmonary angiogram reveals consolidation right lung base. -Levaquin 750 mg IV q24h. -DuoNeb scheduled every 4 hours with every 2 h prn -Solu-Medrol 60 mg IV every 6h -Influenza test -Legionella and pneumococcal urinary antigen testing -Oxygen Leukocytosis: Attributed to pneumonia; 13.9--> improved to 7.7. Hypokalemia: 3.3-->3.9 s/p repletion with 40 mEq po KCl. -Monitor and replace as needed. DVT prophylaxis: Lovenox. Written by Paula Arriola PA-C acting as scribe for Dr. Wilson on 11/15/16 at 1445. The documentation accurately reflects the work and decisions performed face-to- face by or Dr. Wilson on 11/15/16 at 1445. Physician Certification 2 Midnight Certification Type: Admission for Inpatient Services Order for Inpatient Services The services are ordered in accordance with Medicare regulations or non- Medicare payer requirements, as applicable. In the case of services not specified as inpatient-only, they are appropriately provided as inpatient services in accordance with the 2-midnight benchmark. Estimated LOS (days): 2 days is the estimated time the patient will need to remain in the hospital, assuming treatment plan goals are met and no additional complications. Post-Hospital Plan: Not yet determined Problem Qualifiers (1) Acute on chronic respiratory failure: Qualified Code: J96.21 - Acute on chronic respiratory failure with hypoxia (2) Pneumonia: Qualified Code: J18.1 - Pneumonia of right lower lobe due to infectious organism Paula Arriola Nov 15, 2016 14:51
--- NOTE | 2016-11-15 16:53 | EKG ---
Date Performed: 11/14/2016 Time Performed: 15:03:50 PTAGE: 81 years EKG: Sinus rhythm Inferior T wave changes are nonspecific Compared to prior tracing no significant change Borderline E CG PREVIOUS TRACING : 11/09/2016 17.11 DOCTOR: Racheal Edge Interpretating Date/Time 11/15/2016 16:51:58
[2016-11-15] MEDS: ENOXAPARIN SODIUM 40 MG/0.4 ML SYRINGE SQ SCH (17:01)
[2016-11-15] MEDS: TEMAZEPAM 15 MG CAP PO PRN (21:15)
[2016-11-15] MEDS: LEVOFLOXACIN 750 MG PREMIX INJ 150 ML IV SCH (21:16)
[2016-11-16] VITALS (8 sets, daily range): BP systolic 104–139; BP diastolic 63–82; PULSE 85–101; RESP 16–18; TEMP 96.8–97.8; O2SAT 92–94
[2016-11-16] MEDS: methylPREDNISolone SOD SUCC 125 MG/2 ML VIAL IVP SCH ×4 (02:16→20:45)
[2016-11-16] MEDS: RESP: ALBUTEROL 2.5 MG/IPRATROPIUM 0.5 MG NEB (SCH) INH ×6 (03:49→22:55)
[2016-11-16 06:33] LABS: AUTOMATED NEUTROPHIL # 12.4 TH/MM3 (1.8-7.7); HEMATOCRIT 34.7 % (35.0-46.0); HEMO FLAGS DIFF FINAL; LYMPH % 1.2 % (9.0-44.0); LYMPHOCYTE # 0.2 TH/MM3 (1.0-4.8); MEAN CELL VOLUME 94.8 FL (80.0-100.0); MEAN CORPUSCULAR HEMOGLOBIN 30.6 PG (27.0-34.0); MEAN CORPUSCULAR HGB CONC 32.3 % (32.0-36.0); MONO % 3.1 % (0.0-8.0); NEUT % 95.7 % (16.0-70.0); PLATELET COUNT 254 TH/MM3 (150-450); RED BLOOD COUNT 3.66 MIL/MM3 (4.00-5.30); RED CELL DISTRIBUTION WIDTH 16.3 % (11.6-17.2)
[2016-11-16] MEDS: LEFLUNOMIDE 20 MG PO SCH (08:49)
[2016-11-16] MEDS: DILTIAZEM-CD 240 MG CAP ER PO SCH (08:52)
[2016-11-16] MEDS: PANTOPRAZOLE SOD 40 MG DELAYED RELEASE TAB PO SCH (08:52)
[2016-11-16] MEDS: SODIUM CHLORIDE 0.9% FLUSH 5 ML FLUSH IVF SCH ×2 (08:53→20:01)
[2016-11-16] MEDS: guaiFENesin E.R. 600 MG TAB PO SCH ×2 (12:53→20:44)
[2016-11-16] MEDS: RESP: ACETYLCYSTEINE 10% 30 ML NEB NEB SCH ×3 (13:00→19:25)
--- NOTE | 2016-11-16 13:24 | HHI.PR ---
Subjective Remarks Still quite dyspneic, easily with exertion, breathing tight. Objective Vitals Vital Signs Date Time Temp Pulse Resp B/P Pulse Ox O2 Delivery O2 Flow Rate FiO2 11/16/16 12:00 97.7 89 18 128/76 94 11/16/16 08:00 97.8 91 17 139/82 93 11/16/16 07:37 92 Nasal Cannula 4.00 11/16/16 00:00 96.8 97 16 104/63 92 11/15/16 20:00 96.9 100 18 130/71 93 11/15/16 19:35 92 Nasal Cannula 4.00 I/O 11/15/16 11/15/16 11/15/16 11/16/16 11/16/16 11/16/16 07:00 15:00 23:00 07:00 15:00 23:00 Intake Total 561 ml 280 ml Balance 561 ml 280 ml Intake Oral 410 ml 280 ml IV Total 151 ml 0 ml # Voids 3 # Bowel Movements 0 Result Diagram: 11/16/16 0600 11/15/16 0615 Objective Remarks GENERAL: Well-nourished, well-developed very pleasant elderly CF patient in no significant distress. SKIN: Warm and dry. HEAD: Normocephalic. EYES: No scleral icterus. No injection or drainage. NECK: Supple, trachea midline. No JVD or lymphadenopathy. CARDIOVASCULAR: Regular rate and rhythm without murmurs, gallops, or rubs. RESPIRATORY: Poor air movement with prolonged exp phase. GASTROINTESTINAL: Abdomen soft, non-tender, nondistended. EXTREMITIES: No cyanosis, or edema. NEUROLOGICAL: Awake, alert, and oriented x 3. Non-focal. A/P Problem List: (1) Sepsis ICD Code: A41.9 Status: Acute (2) Chronic obstructive pulmonary disease with acute exacerbation ICD Code: J44.1 Status: Acute (3) Acute on chronic respiratory failure ICD Code: J96.20 Status: Acute (4) Pneumonia ICD Code: J18.9 Status: Acute (5) Leukocytosis ICD Code: D72.829 Status: Acute (6) Hypokalemia ICD Code: E87.6 Status: Acute Assessment and Plan 81-year-old female with: Possible Sepsis: Tachycardic 114 on arrival. White blood cell count 13.9. Source of infection pneumonia. Lactic acid normal. -Blood cultures 2 -Antibiotics as below -Patient received 1 L bolus IVF in ED -Monitor vitals COPD exacerbation/Pneumonia/Respiratory failure: O2 82% on RA. Patient has been increasing O2 use at home. Chest x-ray personally interpreted without acute disease, but CT pulmonary angiogram reveals consolidation right lung base. -Levaquin 750 mg IV q24h. -DuoNeb scheduled every 4 hours with every 2 h prn -Solu-Medrol 60 mg IV every 6h Leukocytosis: Attributed to pneumonia; 13.9--> improved to 7.7. Hypokalemia: -Monitor and replace as needed. DVT prophylaxis: Lovenox. Problem Qualifiers (1) Acute on chronic respiratory failure: Qualified Code: J96.21 - Acute on chronic respiratory failure with hypoxia (2) Pneumonia: Qualified Code: J18.1 - Pneumonia of right lower lobe due to infectious organism Leslie Wilson MD Nov 16, 2016 13:24
[2016-11-16] MEDS: ENOXAPARIN SODIUM 40 MG/0.4 ML SYRINGE SQ SCH (18:18)
[2016-11-16] MEDS: LEVOFLOXACIN 750 MG PREMIX INJ 150 ML IV SCH (20:01)
[2016-11-16] MEDS: TEMAZEPAM 15 MG CAP PO PRN (20:49)
[2016-11-17] VITALS: BP 119/70; PULSE 97; RESP 18; TEMP 96.2; O2SAT 99
[2016-11-17] MEDS: methylPREDNISolone SOD SUCC 125 MG/2 ML VIAL IVP SCH ×2 (04:21→09:05)
[2016-11-17] MEDS: RESP: ALBUTEROL 2.5 MG/IPRATROPIUM 0.5 MG NEB (SCH) INH ×3 (04:49→11:23)
[2016-11-17] MEDS: RESP: ACETYLCYSTEINE 10% 30 ML NEB NEB SCH ×2 (07:44→11:23)
[2016-11-17 08:00] VITALS: BP 128/71; PULSE 96; RESP 20; TEMP 97.7; O2SAT 94
[2016-11-17 08:06] LABS: AUTOMATED NEUTROPHIL # 10.4 TH/MM3 (1.8-7.7); BASOPHIL # 0.1 TH/MM3 (0-0.2); BASOPHIL % 1.3 % (0.0-2.0); EOSINOPHIL # 0.1 TH/MM3 (0-0.4); EOSINOPHIL % 0.8 % (0.0-4.0); HEMATOCRIT 38.1 % (35.0-46.0); HEMO FLAGS DIFF FINAL; LYMPH % 1.6 % (9.0-44.0); LYMPHOCYTE # 0.2 TH/MM3 (1.0-4.8); MEAN CELL VOLUME 96.3 FL (80.0-100.0); MEAN CORPUSCULAR HEMOGLOBIN 30.2 PG (27.0-34.0); MEAN CORPUSCULAR HGB CONC 31.4 % (32.0-36.0); MONO % 3.5 % (0.0-8.0); NEUT % 92.8 % (16.0-70.0); PLATELET COUNT 262 TH/MM3 (150-450); RED BLOOD COUNT 3.96 MIL/MM3 (4.00-5.30); RED CELL DISTRIBUTION WIDTH 17.7 % (11.6-17.2); WHITE BLOOD COUNT 11.2 TH/MM3 (4.0-11.0)
[2016-11-17 08:12] LABS: POTASSIUM 3.9 MEQ/L (3.5-5.1)
[2016-11-17 08:14] LABS: BICARBONATE 27.1 MEQ/L (21.0-32.0)
[2016-11-17] MEDS: SODIUM CHLORIDE 0.9% FLUSH 5 ML FLUSH IVF SCH (09:00)
[2016-11-17] MEDS: LEFLUNOMIDE 20 MG PO SCH (09:00)
[2016-11-17] MEDS: guaiFENesin E.R. 600 MG TAB PO SCH (09:04)
[2016-11-17] MEDS: PANTOPRAZOLE SOD 40 MG DELAYED RELEASE TAB PO SCH (09:04)
[2016-11-17] MEDS: DILTIAZEM-CD 240 MG CAP ER PO SCH (09:04)
--- NOTE | 2016-11-17 10:35 | HHI.PR ---
Subjective Remarks Patient seen and evaluated in follow-up for COPD exacerbation. Oxygen dependency slightly above baseline. Patient follow-up with her primary organizational psychologist. Leukocytosis improved Objective Vitals Vital Signs Date Time Temp Pulse Resp B/P Pulse Ox O2 Delivery O2 Flow Rate FiO2 11/17/16 08:00 97.7 96 20 128/71 94 11/17/16 00:00 96.2 97 18 119/70 99 11/16/16 22:55 93 Nasal Cannula 4.00 11/16/16 20:00 97.3 101 18 134/70 93 11/16/16 19:25 93 Nasal Cannula 4.00 11/16/16 16:00 97.7 85 17 125/80 93 11/16/16 12:00 97.7 89 18 128/76 94 I/O 11/16/16 11/16/16 11/16/16 11/17/16 11/17/16 11/17/16 07:00 15:00 23:00 07:00 15:00 23:00 Intake Total 280 ml 140 ml Balance 280 ml 140 ml Intake Oral 280 ml 140 ml IV Total 0 ml # Voids 3 2 # Bowel Movements 0 1 Result Diagram: 11/17/16 0750 11/17/16 0750 Objective Remarks GENERAL: This is a well-nourished, well-developed patient, in no apparent distress. CARDIOVASCULAR: Regular rate and rhythm without murmurs, gallops, or rubs. RESPIRATORY: Clear to auscultation. Breath sounds equal bilaterally. No wheezes , rales, or rhonchi. GASTROINTESTINAL: Abdomen soft, non-tender, nondistended. Normal active bowel sounds MUSCULOSKELETAL: Extremities without clubbing, cyanosis, or edema. NEURO: Alert & Oriented x4 to person, place, time, situation. Moves all ext x4 A/P Assessment and Plan 1. Sepsis improved, leukocytosis improved, blood cultures negative at this time. Continue Levaquin by mouth, heart rate improved 2. COPD exacerbation/Pneumonia/Respiratory failure: O2 82% on RA (patient has home O2 of 2 L). Continue duo nebs, Solu-Medrol, influenza, Legionella and pneumococcal negative Continue oral steroids Leukocytosis: Attributed to pneumonia; 13.9--> improved to 7.7. 3. Hypokalemia, resolved Discharge Planning d/c home Anjelica Wood MD Nov 17, 2016 10:34
[2016-11-17] MEDS ORDERED: MUCI600T PO (10:36)
[2016-11-17] MEDS ORDERED: PRED20 PO (10:36)
[2016-11-17] MEDS ORDERED: LEVA750T PO (10:36)
--- NOTE | 2016-11-17 10:37 | HHI.DCPOC ---
Discharge Care Plan Diagnosis: (1) Chronic obstructive pulmonary disease with acute exacerbation (2) Pneumonia Goals to Promote Your Health * To prevent worsening of your condition and complications * To maintain your health at the optimal level Directions to Meet Your Goals Take your medications as prescribed Follow your dietary instruction Follow activity as directed Keep your appointments as scheduled Take your immunizations and boosters as scheduled If your symptoms worsen call your PCP, if no PCP go to Urgent Care Center or Emergency Room Smoking is Dangerous to Your Health. Avoid second hand smoke Call the 24-hour hour crisis hotline for domestic abuse at Anjelica Wood MD Nov 17, 2016 10:37
--- NOTE | 2016-11-17 10:39 | HHI.DS ---
cc: Alvaro Pablo MD Discharge Summary Admission Date Nov 14, 2016 at 18:32 Discharge Date: Nov 17, 2016 Admitting Diagnosis COPD exacerbation (1) Sepsis ICD Code: A41.9 Diagnosis: Principal (2) Chronic obstructive pulmonary disease with acute exacerbation ICD Code: J44.1 Diagnosis: Principal (3) Acute on chronic respiratory failure ICD Code: J96.20 Diagnosis: Principal (4) Pneumonia ICD Code: J18.9 Diagnosis: Principal (5) Leukocytosis ICD Code: D72.829 Diagnosis: Principal (6) Hypokalemia ICD Code: E87.6 Diagnosis: Principal Procedures none Brief History - From Admission 81-year-old female with history of COPD and psoriatic arthritis return to the ED for shortness of breath. The patient was recently admitted this month for COPD exacerbation on and discharged on 11/10/16. Patient states she felt good on that when she went home that she started deteriorating Monday and states she played cards on Monday. She states when she woke up at 3 or 4 AM on Monday she could barely walk back from the bathroom because she was feeling so bad. Patient has been increasing oxygen use during the day time since she was hospitalized. Denies any fevers or chills. Denies any nausea or vomiting. Patient's director of sales is Dr. Sinclair. CBC/BMP: 11/17/16 0750 11/17/16 0750 Significant Findings Laboratory Tests Test 11/14/16 11/14/16 11/15/16 11/16/16 14:55 15:00 06:15 06:00 Arterial Blood pH 7.47 (7.380-7.420) Arterial Blood Partial 35 mmHG (38-42) Pressure CO2 Arterial Blood Methemoglobin 2.1 % (0-2) White Blood Count 13.9 TH/MM3 13.0 TH/MM3 (4.0-11.0) (4.0-11.0) Neutrophils (%) (Auto) 79.6 % 95.1 % 95.7 % (16.0-70.0) (16.0-70.0) (16.0-70.0) Lymphocytes (%) (Auto) 6.8 % 2.5 % 1.2 % (9.0-44.0) (9.0-44.0) (9.0-44.0) Monocytes (%) (Auto) 11.2 % (0.0-8.0) Basophils (%) (Auto) 2.2 % (0.0-2.0) Neutrophils # (Auto) 11.1 TH/MM3 12.4 TH/MM3 (1.8-7.7) (1.8-7.7) Lymphocytes # (Auto) 0.9 TH/MM3 0.2 TH/MM3 0.2 TH/MM3 (1.0-4.8) (1.0-4.8) (1.0-4.8) Monocytes # (Auto) 1.6 TH/MM3 (0-0.9) Basophils # (Auto) 0.3 TH/MM3 (0-0.2) Activated Partial 23.3 SEC Thromboplast Time (24.3-30.1) Potassium Level 3.3 MEQ/L (3.5-5.1) Chloride Level 109 MEQ/L 111 MEQ/L (98-107) (98-107) Random Glucose 107 MG/DL 160 MG/DL (74-106) (74-106) Troponin I LESS THAN 0.02 NG/ML (0.02-0.05) Red Blood Count 3.82 MIL/MM3 3.66 MIL/MM3 (4.00-5.30) (4.00-5.30) Creatinine 0.47 MG/DL (0.50-1.00) Hemoglobin 11.2 GM/DL (11.6-15.3) Hematocrit 34.7 % (35.0-46.0) Test 11/17/16 07:50 White Blood Count 11.2 TH/MM3 (4.0-11.0) Red Blood Count 3.96 MIL/MM3 (4.00-5.30) Mean Corpuscular Hemoglobin 31.4 % Concent (32.0-36.0) Red Cell Distribution Width 17.7 % (11.6-17.2) Neutrophils (%) (Auto) 92.8 % (16.0-70.0) Lymphocytes (%) (Auto) 1.6 % (9.0-44.0) Neutrophils # (Auto) 10.4 TH/MM3 (1.8-7.7) Lymphocytes # (Auto) 0.2 TH/MM3 (1.0-4.8) Chloride Level 110 MEQ/L (98-107) Blood Urea Nitrogen 21 MG/DL (7-18) Estimat Glomerular Filtration 82 ML/MIN (>89) Rate Random Glucose 143 MG/DL (74-106) PE at Discharge GENERAL: This is a well-nourished, well-developed patient, in no apparent distress. CARDIOVASCULAR: Regular rate and rhythm without murmurs, gallops, or rubs. RESPIRATORY: Clear to auscultation. Breath sounds equal bilaterally. No wheezes , rales, or rhonchi. GASTROINTESTINAL: Abdomen soft, non-tender, nondistended. Normal active bowel sounds MUSCULOSKELETAL: Extremities without clubbing, cyanosis, or edema. NEURO: Alert & Oriented x4 to person, place, time, situation. Moves all ext x4 Pt update on day of discharge Patient seen today in follow-up for discharge planning. Feels better. Respiratory status stabilized. No new complaints. Patient will like to go home Hospital Course Patient is a 81-year-old female with known COPD who came in hospital with signs and symptoms of acute COPD exacerbation and pneumonia. She was given antibiotics and steroids and did well with these treatments. She did require a higher level oxygen that she had at home however this was arranged at home. She will follow up with her primary care provider Pt Condition on Discharge: Good Discharge Disposition: Discharge Home Discharge Time: > 30 minutes Discharge Instructions DIET: Follow Instructions for: As Tolerated, No Restrictions Activities you can perform: Regular-No Restrictions Follow up Referrals: Pulmonology - 1 Week with Yahir Sinclair MD New Medications: Guaifenesin ER 12 HR (Mucinex ER 12 HR) 600 Mg Jono 600 MG PO BID Cough #62 TAB Levofloxacin (Levaquin) 750 Mg Tab 750 MG PO DAILY Infection #12 TAB Prednisone (Prednisone) 20 Mg Tab 20 MG PO BID Take 20 mg twice a day for 3 days then 20 mg daily for 3 days then 10 mg daily for 3 days and stop Inflammation #20 TAB Continued Medications: Diltiazem ER 24 HR (Cartia Xt) 240 Mg Caper 240 MG PO DAILY #30 Ref 0 CAP Folic Acid (Folic Acid) 400 Mcg Tab 400 MCG PO DAILY Nutritional Supplement Ref 0 TAB Ipratropium-Albuterol Inh (Combivent Respimat Inh) 20-100 Long Term/Act Aero 1 PUFF INH QID PRN SHORTNESS OF BREATH #1 Ref 0 INHALER Leflunomide (Leflunomide) 20 Mg Tab 20 MG PO DAILY TAB Methotrexate (Methotrexate) 2.5 Mg Tab 2.5 MG PO Q7D Ref 0 TAB Pantoprazole (Protonix) 40 Mg Tab 40 MG PO DAILY Reflux #30 Ref 0 TAB Discontinued Medications: Azithromycin (Zithromax) 250 Mg Tab 500 MG PO DAILY COPD Days 5 TAB Ipratropium-Albuterol Neb (Duoneb) 0.5-2.5 Mg/3 Ml Neb 1 AMPULE INH Q4HR NEB COPD Days 30 ML Prednisone (21) 5 mg tab Dose Pack (Prednisone (21) 5 mg tab Dose Pack) 5 Mg Dspk 5 MG PO DIRECTED Inflammation #1 Ref 0 Anjelica Boyd MD Nov 17, 2016 10:39
[2016-11-17] MEDS ORDERED: predniSONE 20 MG TAB PO SCH (11:00)
[2016-11-17] MEDS ORDERED: LEVOFLOXACIN 750 MG TAB PO SCH (11:00)
== END 2016-11-17 12:15 | disposition home or self-care (01) | DRG 871 ==
LOC: PHED 14:29 → PHEDA 18:20 → OBSVTOIN 18:32 → PHEDH 22:32 → PH3B 11-15 00:22
PROVIDERS: ADMIT Hospitalist; ATTEND Hospitalist
DX: A41.9 Sepsis, unspecified organism (principal); J69.0 Pneumonitis due to inhalation of food and vomit; J96.21 Acute and chronic respiratory failure with hypoxia; J44.1 Chronic obstructive pulmonary disease with (acute) exacerbation; I10 Essential (primary) hypertension; E87.6 Hypokalemia; T38.0X5A Adverse effect of glucocorticoids and synthetic analogues, initial encounter; Z87.891 Personal history of nicotine dependence; Z99.81 Dependence on supplemental oxygen
CPT/HCPCS: 36600; 71010; 71275; 80048; 82805; 83605; 83735; 83880; 84484; 85025; 85610; 85730; 87040; 87449; 87804; 93005; 94150; 94640; 94664; 96374; J1650; J1956; J2930; J7030; J7512; J7608; J7613; Q9967

== ENCOUNTER 2016-11-21 12:45 | Emergency (ER) | payer MEDICARE, OTHER ==
[~2016-11-21] VITALS: Ht 162.6 cm; Wt 56.0 kg
[2016-11-21 12:45] VITALS: BP 136/79; PULSE 125; RESP 32; TEMP 97.9; O2SAT 90
[~2016-11-21 12:45] MED LIST changes: -FOLI5CAP PO; +IPRAAER INH; -IPRASOL INH; +LEVA750T PO; +MUCI600T PO; +PRED20 PO; -PRED5PAK PO; -ULTR50TA5 PO; -ZITH250T PO
[2016-11-21 12:55] VITALS: BP 136/79; PULSE 120; RESP 32; TEMP 97.9; O2SAT 92
[2016-11-21 13:10] VITALS: O2SAT 93
[2016-11-21] MEDS ORDERED: methylPREDNISolone SOD SUCC 125 MG/2 ML VIAL IVP ONE (13:15)
[2016-11-21] MEDS ORDERED: SODIUM CHLORIDE 0.9% FLUSH 5 ML FLUSH IVF PRN (13:15)
[2016-11-21] MEDS ORDERED: LORazepam 0.5 MG TAB PO ONE (13:15)
[2016-11-21] MEDS: RESP: ALBUTEROL 2.5 MG/IPRATROPIUM 0.5 MG NEB (SCH) INH (13:17)
[2016-11-21 13:20] VITALS: O2SAT 93
[2016-11-21 13:30] LABS: AUTOMATED NEUTROPHIL # 17.6 TH/MM3 (1.8-7.7); BASOPHIL # 0.5 TH/MM3 (0-0.2); BASOPHIL % 2.3 % (0.0-2.0); EOSINOPHIL % 0.1 % (0.0-4.0); HEMATOCRIT 44.6 % (35.0-46.0); LYMPHOCYTE # 2.1 TH/MM3 (1.0-4.8); MEAN CELL VOLUME 94.6 FL (80.0-100.0); MEAN CORPUSCULAR HEMOGLOBIN 29.8 PG (27.0-34.0); MEAN CORPUSCULAR HGB CONC 31.5 % (32.0-36.0); MONO % 2.2 % (0.0-8.0); NEUT % 85.4 % (16.0-70.0); PLATELET COUNT 307 TH/MM3 (150-450); RED BLOOD COUNT 4.72 MIL/MM3 (4.00-5.30); WHITE BLOOD COUNT 20.8 TH/MM3 (4.0-11.0)
[2016-11-21 13:33] LABS: CHLORIDE 105 MEQ/L (98-107); HEMO FLAGS AUTO DIFF; POTASSIUM 4.1 MEQ/L (3.5-5.1); SODIUM (NA) 143 MEQ/L (136-145)
[2016-11-21 13:37] LABS: ANION GAP 10 MEQ/L (5-15); BICARBONATE 28.1 MEQ/L (21.0-32.0)
[2016-11-21 13:38] LABS: BLOOD UREA NITROGEN 15 MG/DL (7-18)
[2016-11-21 13:40] LABS: ALT (GPT) 64 U/L (10-53)
[2016-11-21 13:41] LABS: AST (GOT) 17 U/L (15-37); GLOMERULAR FILTRATION RATE 98 ML/MIN (>89)
[2016-11-21 13:42] LABS: TOTAL BILIRUBIN ADULT 0.5 MG/DL (0.2-1.0)
[2016-11-21 13:43] LABS: ALKALINE PHOSPHATASE 64 U/L (45-117)
[2016-11-21 13:44] LABS: PROTHROMBIN TIME - PATIENT 10.7 SEC (9.8-11.6)
[2016-11-21 13:45] LABS: APTT (PATIENT) 20.9 SEC (24.3-30.1)
[2016-11-21 14:11] LABS: PLATELET ESTIMATE SMEAR NORMAL (NORMAL); PLATELET MORPHOLOGY NORMAL (NORMAL); SCAN/DIFF AUTO DIFF CONFIRMED
[2016-11-21] MEDS ORDERED: IOHEXOL 350 MG/ML 10 ML VIAL (for RAD DIAG) IV ONE (14:18)
--- NOTE | 2016-11-21 14:28 | RADHPO ---
EXAM DATE/TIME: 11/21/2016 13:41 [facility] COMPARISON: CHEST SINGLE AP, November 14, 2016, 14:49. INDICATIONS : Short of breath MEDICAL HISTORY : Chronic obstructive pulmonary disease. SURGICAL HISTORY : None. ENCOUNTER: Initial ACUITY: 4 - 6 days PAIN SCORE: 2/10 LOCATION: Bilateral chest FINDINGS: A single view of the chest demonstrates the lungs to be symmetrically aerated without evidence of mas s, infiltrate or effusion. The cardiomediastinal contours are unremarkable. Osseous structures are intact. There is prominence of the aortic knob is with calcification characteristic of atheroscleroti c vascular disease. CONCLUSION: 1. No acute cardiopulmonary disease. Fuad Oconnell MD on November 21, 2016 at 14:26 Board Certified Radiologist. This report was verified electronically.
[2016-11-21 14:30] VITALS: BP 141/67; PULSE 119; RESP 22; O2SAT 92
--- NOTE | 2016-11-21 14:31 | RADHPO ---
EXAM DATE/TIME: 11/21/2016 14:05 [facility] COMPARISON: CT PULMONARY ANGIOGRAM, November 14, 2016, 18:09. INDICATIONS : Short of breath. Evaluate for embolism. IV CONTRAST: 65 cc Omnipaque 350 (iohexol) IV RADIATION DOSE: 7.85 CTDIvol (mGy) MEDICAL HISTORY : Chronic obstructive pulmonary disease. Carcinoma, basal cell. SURGICAL HISTORY : Tubal ligation. ENCOUNTER: Initial ACUITY: 1 day PAIN SCALE: 0/10 LOCATION: chest TECHNIQUE: Volumetric scanning of the chest was performed using a pulmonary embolism protocol MIP images were re constructed. Using automated exposure control and adjustment of the mA and/or kV according to patien t size, radiation dose was kept as low as reasonably achievable to obtain optimal diagnostic quality images. FINDINGS: PULMONARY ARTERIES: No filling defects are seen in the pulmonary arteries through the segmental level. LUNGS: Consolidating airspace disease in the right lower lobe has partially cleared. There is evidence of un derlying bronchiectasis. No new pulmonary infiltrates are seen. There is no significant congestion. PLEURAE: There is no pleural thickening or pleural effusion. 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 There is good visualization of t he great vessels of the middle mediastinum. No evidence of mediastinal or hilar adenopathy/mass. MUSCULOSKELETAL: Within normal limits for patient age. MISCELLANEOUS: The visualized upper abdominal organs demonstrate no acute abnormality. CONCLUSION: No evidence of pulmonary embolism. Partial resolution of right lower lobe consolidating airspace disease. Right lower lobe bronchiectasis. 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 He Noble MD on November 21, 2016 at 14:25 Board Certified Radiologist. This report was verified electronically.
--- NOTE | 2016-11-21 15:08 | PD ---
HPI Chief Complaint: Respiratory Distress Time Seen by Provider: 12:52 Travel History International Travel<30 days: No Contact w/Intl Traveler<30days: No Traveled to known affect area: No History of Present Illness HPI Patient is a 81-year-old female who comes in complaining of shortness of breath. She has been here several times and admitted twice over the past 2 weeks for COPD exacerbation. She says she was last discharged on , but she never really felt better. She said today she felt like she couldn't breathe and she is very nervous so she came in. She has increased her oxygen use, and is using it most of the time now. She says she has required 4 L versus 2. She is currently still taking steroids as well as antibiotics. PFSH Past Medical History Hx Anticoagulant Therapy: No Arthritis: Yes (PSORIATIC ARTHRITIS) Asthma: No Autoimmune Disease: No Blood Disorders: No Anxiety: No Depression: No Heart Rhythm Problems: Yes (RAPID HEART RATE) Cancer: Yes (BASAL CELL CHIN, RIGHT FOREARM, NOSE, AND UPPER LIP) Cardiovascular Problems: Yes Chemotherapy: No Congestive Heart Failure: No COPD: Yes (2LPM NC HS PRN) Cerebrovascular Accident: No Coronary Artery Disease: No Diabetes: No Diminished Hearing: No Endocrine: No Gastrointestinal Disorders: Yes (ESOPHAGEAL STRICTURES) Genitourinary: Yes (OCCASSIONAL INCONTINENCE ) Hypertension: Yes Immune Disorder: No Implanted Vascular Access Dvce: No Musculoskeletal: Yes Neurologic: Yes (RIGHT LEG WEAKNESS) Psychiatric: No Reproductive: No Respiratory: Yes Integumentary: Yes (shingles, psoriatic arthritis ) Immunizations Current: Yes Migraines: No Radiation Therapy: No Seizures: No Shingles: Yes (10/2015) Thyroid Disease: No Tetanus Vaccination: Unknown Influenza Vaccination: Yes ?: Not Menopausal: Yes Tubal Ligation: Yes Past Surgical History Abdominal Surgery: Yes AICD: Yes Arteriovenous Shunt: No Cardiac Surgery: No Ear Surgery: No Endocrine Surgery: No Eye Surgery: Yes Genitourinary Surgery: No Gynecologic Surgery: Yes (TUBAL LIGATION) Insulin Pump: No Joint Replacement: No Oral Surgery: No Pacemaker: No Thoracic Surgery: No Other Surgery: Yes (SEVERED ACHILLES TENDON - CASTED) Social History Alcohol Use: Yes (2 drinks each night) Tobacco Use: No Substance Use: No Allergies-Medications (Allergen,Severity, Reaction): Coded Allergies: Codeine (Verified Allergy, Unknown, Doesn't remember, 11/21/16) Sulfa (Verified Allergy, Unknown, Doesn't remember, 11/21/16) Reported Meds & Prescriptions Reported Meds & Active Scripts Active Prednisone 20 Mg Tab 20 Mg PO BID Take 20 mg twice a day for 3 days then 20 mg daily for 3 days then 10 mg daily for 3 days and stop Levaquin (Levofloxacin) 750 Mg Tab 750 Mg PO DAILY Mucinex ER 12 HR (Guaifenesin) 600 Mg Jono 600 Mg PO BID Reported Combivent Respimat Inh (Ipratropium-Albuterol Inh) 20-100 Senior Living/Act Aero 1 Puff INH QID PRN Cartia Xt (Diltiazem ER 24 HR) 240 Mg Caper 240 Mg PO DAILY Methotrexate 2.5 Mg Tab 2.5 Mg PO Q7D Leflunomide 20 Mg Tab 20 Mg PO DAILY Folic Acid 400 Mcg Tab 400 Mcg PO DAILY Protonix (Pantoprazole Sodium) 40 Mg Tab 40 Mg PO DAILY Review of Systems Except as stated in HPI: all other systems reviewed are Neg General / Constitutional: No: Fever, Chills HENT: No: Headaches, Lightheadedness Cardiovascular: No: Chest Pain or Discomfort Respiratory: Positive: Shortness of Breath, No: Cough Gastrointestinal: No: Nausea, Vomiting Genitourinary: No: Dysuria Musculoskeletal: No: Edema, Pain Psychiatric: Positive: Anxiety Physical Exam Narrative GENERAL: Awake and alert, appears anxious. SKIN: Warm and dry. HEAD: Atraumatic. Normocephalic. EYES: Pupils equal and round. No scleral icterus. ENT: `Mucous membranes pink and moist. NECK: Trachea midline. No JVD. CARDIOVASCULAR: Regular rate and rhythm. No murmur appreciated. RESPIRATORY: No accessory muscle use. Clear to auscultation. Breath sounds equal bilaterally. Patient is speaking in full sentences, does not appear short of breath. However when she finishes speaking she makes a dramatic breathing sound. MUSCULOSKELETAL: No obvious deformities. No clubbing. No cyanosis. No edema. NEUROLOGICAL: Awake and alert. No obvious cranial nerve deficits. Motor grossly within normal limits. Normal speech. PSYCHIATRIC: Appropriate mood and affect; insight and judgment normal. Data Data Last Documented VS Vital Signs Date Time Temp Pulse Resp B/P Pulse Ox O2 Delivery O2 Flow Rate FiO2 11/21/16 14:30 119 22 141/67 92 Nasal Cannula 4 11/21/16 12:55 97.9 Orders Complete Blood Count With Diff (11/21/16 13:03) Comprehensive Metabolic Panel (11/21/16 13:03) Act Partial Throm Time (Ptt) (11/21/16 13:03) Prothrombin Time / Inr (Pt) (11/21/16 13:03) Troponin I (11/21/16 13:03) Iv Access Insert/Monitor (11/21/16 13:03) Electrocardiogram (11/21/16 13:03) Ecg Monitoring (11/21/16 13:03) Oximetry (11/21/16 13:03) Oxygen Administration (11/21/16 13:03) Chest, Single Ap (11/21/16 13:03) Ct Pulmonary Angiogram (11/21/16 13:03) Sodium Chloride 0.9% Flush (Ns Flush) (11/21/16 13:15) Methylprednisolone So Succ Inj (Solumedr (11/21/16 13:15) Albuterol-Ipratropium Neb (Duoneb Neb) (11/21/16 13:15) Lorazepam (Ativan) (11/21/16 13:15) Iohexol 350 Inj (Omnipaque 350 Inj) (11/21/16 14:18) Labs Laboratory Tests Test 11/21/16 13:20 White Blood Count 20.8 TH/MM3 Red Blood Count 4.72 MIL/MM3 Hemoglobin 14.1 GM/DL Hematocrit 44.6 % Mean Corpuscular Volume 94.6 FL Mean Corpuscular Hemoglobin 29.8 PG Mean Corpuscular Hemoglobin 31.5 % Concent Red Cell Distribution Width 18.0 % Platelet Count 307 TH/MM3 Mean Platelet Volume 7.0 FL Neutrophils (%) (Auto) 85.4 % Lymphocytes (%) (Auto) 10.0 % Monocytes (%) (Auto) 2.2 % Eosinophils (%) (Auto) 0.1 % Basophils (%) (Auto) 2.3 % Neutrophils # (Auto) 17.6 TH/MM3 Lymphocytes # (Auto) 2.1 TH/MM3 Monocytes # (Auto) 0.5 TH/MM3 Eosinophils # (Auto) 0.0 TH/MM3 Basophils # (Auto) 0.5 TH/MM3 CBC Comment AUTO DIFF Differential Comment AUTO DIFF CONFIRMED Platelet Estimate NORMAL Platelet Morphology Comment NORMAL Prothrombin Time 10.7 SEC Prothromb Time International 1.0 RATIO Ratio Activated Partial 20.9 SEC Thromboplast Time Sodium Level 143 MEQ/L Potassium Level 4.1 MEQ/L Chloride Level 105 MEQ/L Carbon Dioxide Level 28.1 MEQ/L Anion Gap 10 MEQ/L Blood Urea Nitrogen 15 MG/DL Creatinine 0.59 MG/DL Estimat Glomerular Filtration 98 ML/MIN Rate Random Glucose 121 MG/DL Calcium Level 8.4 MG/DL Total Bilirubin 0.5 MG/DL Aspartate Amino Transf 17 U/L (AST/SGOT) Alanine Aminotransferase 64 U/L (ALT/SGPT) Alkaline Phosphatase 64 U/L Troponin I LESS THAN 0.02 NG/ML Total Protein 6.0 GM/DL Albumin 2.9 GM/DL [facility] Medical Decision Making Medical Screen Exam Complete: Yes Emergency Medical Condition: Yes Medical Record Reviewed: Yes Interpretation(s) ECG shows sinus tach at 1:15 Differential Diagnosis COPD exacerbation versus PE versus pneumonia versus anxiety Narrative Course Patient is a 81-year-old female who comes in complaining of shortness of breath. She appears very anxious, however she is moving good air in her lungs. She wears home oxygen, recurrent oxygen saturation is 92-94%. Patient does admit to feeling very anxious, and not understanding her disease. IV established, patient connected to the surveillance monitor. She was given albuterol treatments as well as Solu-Medrol by EMS. Labs sent show a white count of 20.8, this is likely due to the steroids she is on. CTA of the chest shows an improving consolidation in the lungs, no evidence of PE. Patient was given 3 duo nebs as well as a small dose of Ativan. She reports feeling much better. Patient offered admission, however she would like to try going home. Advised follow-up with her rotor assembler. Advised follow- up with her primary care doctor. Advised to return as needed to the ED for any worsening symptoms. Advised to continue the steroids and antibiotics she has at home. Diagnosis Primary Impression: Chronic obstructive pulmonary disease with acute exacerbation Patient Instructions: COPD (Chronic Obstructive Pulmonary Disease) (ED), General Instructions Additional Instructions: Follow up with your primary doctor. Follow up with your rotor assembler. Continue your steroids and antibiotics. Return to the ED as needed for any worsening symptoms. Scripts Hydroxyzine Pamoate (Vistaril)25 Mg Cap25 Mg PO TID PRN (ANXIETY) #30 CAP Ref 0 Prov:Marti Mejia MD 11/21/16 Disposition: 01 DISCHARGE HOME Condition: Stable Marti Mejia MD Nov 21, 2016 15:08
[2016-11-21] MEDS ORDERED: VIST25CA PO (15:15)
--- NOTE | 2016-11-22 13:43 | EKG ---
Date Performed: 11/21/2016 Time Performed: 13:11:18 PTAGE: 81 years EKG: Sinus tachycardia with PAC(s) Indeterminate axis Borderline ECG Compared to prior tracing n o significant change PREVIOUS TRACING : 11/14/2016 15.03 DOCTOR: Gudelia Nguyen Interpretating Date/Time 11/22/2016 13:41:26
== END 2016-11-21 15:30 | disposition home or self-care (01) ==
LOC: PHED 12:45
DX: J44.1 Chronic obstructive pulmonary disease with (acute) exacerbation (principal); R94.31 Abnormal electrocardiogram [ECG] [EKG]; I10 Essential (primary) hypertension; Z87.39 Personal history of other diseases of the musculoskeletal system and connective tissue; Z86.79 Personal history of other diseases of the circulatory system; Z87.09 Personal history of other diseases of the respiratory system; Z85.828 Personal history of other malignant neoplasm of skin; Z87.19 Personal history of other diseases of the digestive system; Z86.69 Personal history of other diseases of the nervous system and sense organs; Z87.2 Personal history of diseases of the skin and subcutaneous tissue
CPT/HCPCS: 71010; 71275; 80053; 84484; 85025; 85610; 85730; 93005; 94640; 94664; 99285; Q9967

== ENCOUNTER 2017-07-08 09:21 | Emergency (ER) | payer OTHER ==
[~2017-07-08] VITALS: Ht 162.6 cm; Wt 58.0 kg
[~2017-07-08 09:21] MED LIST changes: +VIST25CA PO
[2017-07-08 09:25] VITALS: BP 130/61; PULSE 107; RESP 18; TEMP 99.4; O2SAT 94
[2017-07-08 09:58] VITALS: O2SAT 94
[2017-07-08] MEDS ORDERED: SODIUM CHLORIDE 0.9% FLUSH 10 ML FLUSH IVF PRN (10:00)
[2017-07-08 10:02] LABS: AUTOMATED NEUTROPHIL # 10.1 TH/MM3 (1.8-7.7); BASOPHIL # 0.2 TH/MM3 (0-0.2); BASOPHIL % 1.9 % (0.0-2.0); EOSINOPHIL # 0.1 TH/MM3 (0-0.4); EOSINOPHIL % 1.1 % (0.0-4.0); HEMATOCRIT 35.2 % (35.0-46.0); LYMPH % 8.2 % (9.0-44.0); LYMPHOCYTE # 1.1 TH/MM3 (1.0-4.8); MEAN CELL VOLUME 93.7 FL (80.0-100.0); MEAN CORPUSCULAR HEMOGLOBIN 29.8 PG (27.0-34.0); MEAN CORPUSCULAR HGB CONC 31.8 % (32.0-36.0); MONO % 10.7 % (0.0-8.0); NEUT % 78.1 % (16.0-70.0); PLATELET COUNT 217 TH/MM3 (150-450); RED BLOOD COUNT 3.76 MIL/MM3 (4.00-5.30); WHITE BLOOD COUNT 12.9 TH/MM3 (4.0-11.0)
[2017-07-08 10:04] LABS: HEMO FLAGS DIFF FINAL
[2017-07-08] MEDS ORDERED: CART120C PO (10:08)
[2017-07-08] MEDS ORDERED: SYMB80AE INH (10:08)
[2017-07-08] MEDS ORDERED: ASPI81CH CHEW (10:08)
[2017-07-08 10:09] LABS: CHLORIDE 106 MEQ/L (98-107); POTASSIUM 3.6 MEQ/L (3.5-5.1); SODIUM (NA) 138 MEQ/L (136-145)
[2017-07-08 10:13] LABS: ANION GAP 10 MEQ/L (5-15); BICARBONATE 22.3 MEQ/L (21.0-32.0); BLOOD UREA NITROGEN 11 MG/DL (7-18)
[2017-07-08 10:16] LABS: GLOMERULAR FILTRATION RATE 106 ML/MIN (>89)
--- NOTE | 2017-07-08 10:18 | RADRPT ---
EXAM DATE/TIME: 07/08/2017 09:57 [facility] COMPARISON: CT PULMONARY ANGIOGRAM, November 21, 2016, 14:05. CHEST SINGLE AP, November 21, 2016, 13:41. INDICATIONS : Short of breath, cough, MEDICAL HISTORY : Chronic obstructive pulmonary disease. SURGICAL HISTORY : None. ENCOUNTER: Initial ACUITY: 3 days PAIN SCORE: 0/10 LOCATION: Bilateral chest FINDINGS: The heart size is normal. The lungs are free of focal consolidation. The lungs are hyperinflated. A s ignificant effusion is not seen. CONCLUSION: Hyperinflated lungs without acute abnormality seen. Yves Sewell MD on July 08, 2017 at 10:13 Board Certified Radiologist. This report was verified electronically.
--- NOTE | 2017-07-08 10:48 | PD ---
HPI Chief Complaint: Cold / Flu Symptoms Time Seen by Provider: 09:30 Travel History International Travel<30 days: No Contact w/Intl Traveler<30days: No Traveled to known affect area: No History of Present Illness HPI The patient is 82 years old. She arrives describing a sudden onset of a cold sensation throughout her body, starting yesterday afternoon and lasting for a few minutes. It resolved when she wore a blanket. She describes rhinorrhea and post-nasal drip with as sore throat. She complains of shortness of breath while doing chores at home, which she believes is related to COPD. No chest pain. She also complains of cramping in the LLE and numbness in the RLE. The complaints are all chronic in nature except for the sensation of cold throughout her body which has resolved. PFSH Past Medical History Hx Anticoagulant Therapy: No Arthritis: Yes (PSORIATIC ARTHRITIS) Asthma: No Autoimmune Disease: No Blood Disorders: No Anxiety: No Depression: No Heart Rhythm Problems: Yes (RAPID HEART RATE) Cancer: Yes (BASAL CELL CHIN, RIGHT FOREARM, NOSE, AND UPPER LIP) Cardiovascular Problems: Yes Chemotherapy: No Congestive Heart Failure: No COPD: Yes (2LPM NC HS PRN) Cerebrovascular Accident: No Coronary Artery Disease: No Diabetes: No Diminished Hearing: No Endocrine: No Gastrointestinal Disorders: Yes (ESOPHAGEAL STRICTURES) Genitourinary: Yes (OCCASSIONAL INCONTINENCE ) Headaches: No Hypertension: No Immune Disorder: No Implanted Vascular Access Dvce: Yes Musculoskeletal: Yes Neurologic: Yes (RIGHT LEG WEAKNESS) Psychiatric: No Reproductive: No Respiratory: Yes (COPD) Integumentary: Yes (shingles, psoriatic arthritis ) Immunizations Current: Yes Migraines: No Radiation Therapy: No Seizures: No Shingles: Yes (10/2015) Thyroid Disease: No Menopausal: Yes Tubal Ligation: Yes Past Surgical History Abdominal Surgery: Yes AICD: Yes Arteriovenous Shunt: No Cardiac Surgery: No Ear Surgery: No Endocrine Surgery: No Eye Surgery: Yes Genitourinary Surgery: No Gynecologic Surgery: Yes (TUBAL LIGATION) Insulin Pump: No Joint Replacement: No Neurologic Surgery: No Oral Surgery: No Pacemaker: No Thoracic Surgery: No Other Surgery: Yes (SEVERED ACHILLES TENDON - CASTED) Social History Alcohol Use: Yes (2 drinks each night) Tobacco Use: No (quit in her 50's) Substance Use: No Allergies-Medications (Allergen,Severity, Reaction): Coded Allergies: Sulfa (Sulfonamide Antibiotics) (Unverified Allergy, Unknown, Doesn't remember, 07/08/17) codeine (Unverified Allergy, Unknown, Doesn't remember, 07/08/17) Reported Meds & Prescriptions Reported Meds & Active Scripts Active Azithromycin 250 Mg Tab 250 Mg PO DIRECTED Take 2 tabs (500 mg) on day 1 then 1 tab daily x 4 days. Prednisone 20 Mg Tab 20 Mg PO BID Take 20 mg twice a day for 3 days then 20 mg daily for 3 days then 10 mg daily for 3 days and stop Reported Symbicort Inh (Budesonide/Formoterol Fumarate) 80-4.5 Mcg/Act Aero 2 Puff INH Q12HR Aspirin 81 Mg Chew 81 Mg CHEW DAILY Cartia Xt (Diltiazem ER 24 HR) 120 Mg Caper 180 Mg PO DAILY Methotrexate 2.5 Mg Tab 2.5 Mg PO Q7D Leflunomide 20 Mg Tab 20 Mg PO DAILY Folic Acid 400 Mcg Tab 400 Mcg PO DAILY Protonix (Pantoprazole Sodium) 40 Mg Tab 40 Mg PO DAILY Review of Systems Except as stated in HPI: all other systems reviewed are Neg Physical Exam Narrative GENERAL: 82 yo F, WNWD, SKIN: Warm and dry. HEAD: Atraumatic. Normocephalic. EYES: Pupils equal and round. No scleral icterus. No injection or drainage. ENT: No nasal bleeding or discharge. Mucous membranes pink and moist. NECK: Trachea midline. No JVD. CARDIOVASCULAR: Regular rate and rhythm. RESPIRATORY: No accessory muscle use. Clear to auscultation. Breath sounds equal bilaterally. GASTROINTESTINAL: Abdomen soft, non-tender, nondistended. Hepatic and splenic margins not palpable. MUSCULOSKELETAL: Extremities without clubbing, cyanosis, or edema. No obvious deformities. DP with Doppler on L and 2+ on R. Brisk capillary refill fingers and toes. NEUROLOGICAL: Awake and alert. No obvious cranial nerve deficits. Motor grossly within normal limits. Five out of 5 muscle strength in the arms and legs. Normal speech. Normal recreation therapy teacher strength. PSYCHIATRIC: Appropriate mood and affect; insight and judgment normal. Data Data Last Documented VS Vital Signs Date Time Temp Pulse Resp B/P (MAP) Pulse Ox O2 Delivery O2 Flow Rate FiO2 07/08/17 09:58 94 Nasal Cannula 2.00 07/08/17 09:25 99.4 107 18 130/61 (84) VS reviewed Orders Orders Electrocardiogram (07/08/17 09:48) Basic Metabolic Panel (Bmp) (07/08/17 09:48) Complete Blood Count With Diff (07/08/17 09:48) Magnesium (Mg) (07/08/17 09:48) Troponin I (07/08/17 09:48) Chest, Single Ap (07/08/17 09:48) Ecg Monitoring (07/08/17 09:48) Iv Access Insert/Monitor (07/08/17 09:48) Oximetry (07/08/17 09:48) Oxygen Administration (07/08/17 09:48) Sodium Chloride 0.9% Flush (Ns Flush) (07/08/17 10:00) Labs Laboratory Tests Test 07/08/17 09:56 White Blood Count 12.9 TH/MM3 Red Blood Count 3.76 MIL/MM3 Hemoglobin 11.2 GM/DL Hematocrit 35.2 % Mean Corpuscular Volume 93.7 FL Mean Corpuscular Hemoglobin 29.8 PG Mean Corpuscular Hemoglobin Concent 31.8 % Red Cell Distribution Width 20.0 % Platelet Count 217 TH/MM3 Mean Platelet Volume 7.0 FL Neutrophils (%) (Auto) 78.1 % Lymphocytes (%) (Auto) 8.2 % Monocytes (%) (Auto) 10.7 % Eosinophils (%) (Auto) 1.1 % Basophils (%) (Auto) 1.9 % Neutrophils # (Auto) 10.1 TH/MM3 Lymphocytes # (Auto) 1.1 TH/MM3 Monocytes # (Auto) 1.4 TH/MM3 Eosinophils # (Auto) 0.1 TH/MM3 Basophils # (Auto) 0.2 TH/MM3 CBC Comment DIFF FINAL Differential Comment Blood Urea Nitrogen 11 MG/DL Creatinine 0.55 MG/DL Random Glucose 95 MG/DL Calcium Level 8.7 MG/DL Magnesium Level 2.0 MG/DL Sodium Level 138 MEQ/L Potassium Level 3.6 MEQ/L Chloride Level 106 MEQ/L Carbon Dioxide Level 22.3 MEQ/L Anion Gap 10 MEQ/L Estimat Glomerular Filtration Rate 106 ML/MIN Troponin I LESS THAN 0.02 NG/ML MDM Medical Decision Making Medical Screen Exam Complete: Yes Emergency Medical Condition: Yes Differential Diagnosis COPD, Reynauds phenomena, PNA, bronchitis, arrhythmia, CAD, anemia, claudication , renal failure Narrative Course Last 24 hours Impressions Chest X-Ray 07/08/17 0948 Signed Impressions: Service Date/Time: Saturday, July 08, 2017 09:57 - CONCLUSION: Hyperinflated lungs without acute abnormality seen. Yves Sewell MD CBC & BMP Diagram 07/08/17 09:56 Calcium Level 8.7, Magnesium Level 2.0 EKG: sinus, rate 90, normal axis/intervals Work up is reassuring. Pt resting comfortably at time of reassessment, result discussed, return precautions discussed. Follow up with PCP. Pt agreeable with plan. Pt notes Azithromycin has been helpful in the past when she experiences sore throat and cough. Diagnosis Primary Impression: Sense of being cold Additional Impression: Chronic obstructive pulmonary disease Qualified Codes: J44.9 - Chronic obstructive pulmonary disease, unspecified Referrals: Primary Care Physician 2 days Med/Other Pt SpecificInfo: No Change to Meds Scripts Azithromycin (Azithromycin) 250 Mg Tab 250 MG PO DIRECTED for Infection, #6 TAB 0 Refills Take 2 tabs (500 mg) on day 1 then 1 tab daily x 4 days. Prov: Dez Jacome MD 07/08/17 Disposition: 01 DISCHARGE HOME Condition: Stable Dez Jacome MD Jul 08, 2017 10:48
--- NOTE | 2017-07-08 11:09 | EKG ---
Date Performed: 07/08/2017 Time Performed: 09:59:59 PTAGE: 82 years EKG: Baseline artifact present Normal Sinus rhythm NONSPECIFIC T-WAVE ABNORMALITY ABNORMAL RHYTHM ECG No significant change from prior electrocardiogra m. PREVIOUS TRACING : 11/21/2016 13.11 DOCTOR: Paul Lambert Interpretating Date/Time 07/08/2017 11:08:09
[2017-07-08] MEDS ORDERED: AZIT250T3 PO (11:23)
== END 2017-07-08 12:07 | disposition home or self-care (01) ==
LOC: PHED 09:21
DX: J44.9 Chronic obstructive pulmonary disease, unspecified (principal); M19.90 Unspecified osteoarthritis, unspecified site; R00.0 Tachycardia, unspecified
CPT/HCPCS: 71010; 80048; 83735; 84484; 85025; 93005

== ENCOUNTER 2017-08-03 13:00 | Inpatient (IN) | payer OTHER, MEDICARE ==
[2017-08-03] VITALS (10 sets, daily range): BP systolic 118–140; BP diastolic 64–82; PULSE 80–108; RESP 20–22; TEMP 97.9–98.1; O2SAT 86–100
[~2017-08-03] VITALS: Ht 163.8 cm; Wt 63.8 kg
[~2017-08-03 13:00] MED LIST changes: +ASPI81CH CHEW; +AZIT250T3 PO; +CART120C PO; -CART240C PO; -IPRAAER INH; -LEVA750T PO; -MUCI600T PO; +SYMB80AE INH; -VIST25CA PO
--- NOTE | 2017-08-03 13:27 | PD ---
HPI Chief Complaint: Respiratory Symptoms Time Seen by Provider: 13:24 Travel History International Travel<30 days: No Contact w/Intl Traveler<30days: No Traveled to known affect area: No History of Present Illness HPI Patient is 82-year-old female presents emergency department for evaluation of shortness of breath for the past 2 weeks gradually worsening. Patient states she doesn't like coming to the hospital. She had a follow-up appointment with Dr. Craig today who told her to come to the emergency department to get admitted. She's been on a steroid taper during the past 2 weeks, she's been using her albuterol at home. She is on oxygen at home at night only. Denies any fever does endorse a dry intermittent cough denies any chest pain. Symptoms are moderate to severe, gradually worsening, context is COPD, has not been alleviated by prednisone or treatments. Patient went to her pulverizing and sifting operator today who recommended that she come into the emergency department to be seen in the account that she has been short of breath and was hypoxic and the in the office. PFSH Past Medical History Hx Anticoagulant Therapy: No Arthritis: Yes (PSORIATIC ARTHRITIS) Asthma: No Autoimmune Disease: No Blood Disorders: No Anxiety: No Depression: No Heart Rhythm Problems: Yes (RAPID HEART RATE) Cancer: Yes (BASAL CELL CHIN, RIGHT FOREARM, NOSE, AND UPPER LIP) Cardiovascular Problems: Yes Chemotherapy: No Congestive Heart Failure: No COPD: Yes (2LPM NC HS PRN) Cerebrovascular Accident: No Coronary Artery Disease: No Diabetes: No Diminished Hearing: No Endocrine: No Gastrointestinal Disorders: Yes (ESOPHAGEAL STRICTURES) Genitourinary: Yes (OCCASSIONAL INCONTINENCE ) Headaches: No Hypertension: No Immune Disorder: No Implanted Vascular Access Dvce: Yes Musculoskeletal: Yes Neurologic: Yes (RIGHT LEG WEAKNESS) Psychiatric: No Reproductive: No Respiratory: Yes (COPD) Integumentary: Yes (shingles, psoriatic arthritis ) Immunizations Current: Yes Migraines: No Radiation Therapy: No Seizures: No Shingles: Yes (10/2015) Thyroid Disease: No ?: Not Menopausal: Yes Tubal Ligation: Yes Past Surgical History Abdominal Surgery: Yes AICD: Yes Arteriovenous Shunt: No Cardiac Surgery: No Ear Surgery: No Endocrine Surgery: No Eye Surgery: Yes Genitourinary Surgery: No Gynecologic Surgery: Yes (TUBAL LIGATION) Insulin Pump: No Joint Replacement: No Neurologic Surgery: No Oral Surgery: No Pacemaker: No Thoracic Surgery: No Other Surgery: Yes (SEVERED ACHILLES TENDON - CASTED) Social History Alcohol Use: Yes (2 drinks each night) Tobacco Use: No (quit in her 50's) Substance Use: No Allergies-Medications (Allergen,Severity, Reaction): Coded Allergies: Sulfa (Sulfonamide Antibiotics) (Unverified Allergy, Unknown, Doesn't remember, 07/08/17) codeine (Unverified Allergy, Unknown, Doesn't remember, 07/08/17) Reported Meds & Prescriptions Reported Meds & Active Scripts Active Reported Prednisone 5 Mg Tab 5 Mg PO DAILY Symbicort Inh (Budesonide/Formoterol Fumarate) 80-4.5 Mcg/Act Aero 2 Puff INH Q12HR Aspirin 81 Mg Chew 81 Mg CHEW DAILY Cartia Xt (Diltiazem ER 24 HR) 120 Mg Caper 180 Mg PO DAILY Methotrexate 2.5 Mg Tab 2.5 Mg PO Q7D Leflunomide 20 Mg Tab 20 Mg PO DAILY Folic Acid 400 Mcg Tab 400 Mcg PO DAILY Protonix (Pantoprazole Sodium) 40 Mg Tab 40 Mg PO DAILY Review of Systems Except as stated in HPI: all other systems reviewed are Neg Physical Exam Narrative GENERAL: Well-developed well-nourished, per slip breathing, tripod position. SKIN: Focused skin assessment warm/dry. HEAD: Atraumatic. Normocephalic. EYES: Pupils equal and round. No scleral icterus. No injection or drainage. ENT: No nasal bleeding or discharge. Mucous membranes pink and moist. NECK: Trachea midline. No JVD. CARDIOVASCULAR: Regular rate and rhythm. No murmur appreciated. RESPIRATORY: No accessory muscle use. Decreased air entry bilaterally.. Breath sounds equal bilaterally. GASTROINTESTINAL: Abdomen soft, non-tender, nondistended. Hepatic and splenic margins not palpable. MUSCULOSKELETAL: No obvious deformities. No clubbing. No cyanosis. No edema. NEUROLOGICAL: Awake and alert. No obvious cranial nerve deficits. Motor grossly within normal limits. Normal speech. PSYCHIATRIC: Appropriate mood and affect; insight and judgment normal. Data Data Last Documented VS Vital Signs Date Time Temp Pulse Resp B/P (MAP) Pulse Ox O2 Delivery O2 Flow Rate FiO2 08/03/17 14:27 97.9 104 20 118/64 (82) 94 Nasal Cannula 2.00 Orders Orders Resp Blood Gas Venous (08/03/17 ) Electrocardiogram (08/03/17 13:24) Ckmb (Isoenzyme) Profile (08/03/17 13:24) Complete Blood Count With Diff (08/03/17 13:24) Comprehensive Metabolic Panel (08/03/17 13:24) Magnesium (Mg) (08/03/17 13:24) Prothrombin Time / Inr (Pt) (08/03/17 13:24) Act Partial Throm Time (Ptt) (08/03/17 13:24) Troponin I (08/03/17 13:24) Chest, Single Ap (08/03/17 13:24) Ecg Monitoring (08/03/17 13:24) Iv Access Insert/Monitor (08/03/17 13:24) Oximetry (08/03/17 13:24) Oxygen Administration (08/03/17 13:24) Sodium Chloride 0.9% Flush (Ns Flush) (08/03/17 13:30) Magnesium Sulfate 1 Gm Premix (Magnesium (08/03/17 13:30) Methylprednisolone So Succ Inj (Solumedr (08/03/17 13:30) Albuterol-Ipratropium Neb (Duoneb Neb) (08/03/17 13:30) Blood Gas Venous (Vbg) (08/03/17 13:25) Ct Pulmonary Angiogram (08/03/17 ) Iohexol 350 Inj (Omnipaque 350 Inj) (08/03/17 15:10) Diltiazem Inj (Cardizem Inj) (08/03/17 15:45) Ceftriaxone Inj (Rocephin Inj) (08/03/17 15:45) Azithromycin Inj (Zithromax Inj) (08/03/17 15:45) Admit Order (Ed Use Only) (08/03/17 ) Admit To Inpatient (08/03/17 ) Vital Signs (Adult) Q4H (08/03/17 16:20) Activity Oob With Assistance (08/03/17 16:20) Motor Carrier Inspector / Telemetry .CONTINUOUS (08/03/17 16:20) Diet Regular Basic (08/03/17 Dinner) Sodium Chloride 0.9% Flush (Ns Flush) (08/03/17 16:30) Sodium Chloride 0.9% Flush (Ns Flush) (08/03/17 21:00) Ondansetron Inj (Zofran Inj) (08/03/17 16:30) Comprehensive Metabolic Panel (08/04/17 06:00) Complete Blood Count With Diff (08/04/17 06:00) Resp Oxygen Andrew C Titrat 1-4 L (08/03/17 ) Pt Request For Service (08/03/17 16:20) Enoxaparin Inj (Lovenox Inj) (08/03/17 16:30) Naloxone Inj (Narcan Inj) (08/03/17 16:30) Magnesium Hydroxide Liq (Milk Of Magnesi (08/03/17 16:30) Inpatient Certification (08/03/17 ) Albuterol-Ipratropium Neb (Duoneb Neb) (08/03/17 22:00) Albuterol Neb (Albuterol Neb) (08/03/17 16:30) Methylprednisolone So Succ Inj (Solumedr (08/03/17 16:30) Azithromycin Inj (Zithromax Inj) (08/03/17 16:30) Labs Laboratory Tests Test 08/03/17 13:25 08/03/17 13:40 Blood Gas Puncture Site IV Blood Gas Patient Temperature 98.6 Venous Blood pH 7.38 Venous Blood Partial Pressure CO2 44 mmHg Venous Blood Partial Pressure O2 40 mmHg Venous Blood HCO3 26 mmol/L Venous Blood Oxygen Saturation 65 % Venous Blood Oxygen Content 11.8 Vol % Venous Blood Base Excess 1.0 mmol/L Oxygen Delivery Device NASAL CANNULA Blood Gas Liter Flow 2 L/M White Blood Count 13.0 TH/MM3 Red Blood Count 4.18 MIL/MM3 Hemoglobin 12.5 GM/DL Hematocrit 39.1 % Mean Corpuscular Volume 93.5 FL Mean Corpuscular Hemoglobin 29.9 PG Mean Corpuscular Hemoglobin Concent 32.0 % Red Cell Distribution Width 20.2 % Platelet Count 284 TH/MM3 Mean Platelet Volume 7.3 FL Neutrophils (%) (Auto) 93.5 % Lymphocytes (%) (Auto) 2.9 % Monocytes (%) (Auto) 2.6 % Eosinophils (%) (Auto) 0.3 % Basophils (%) (Auto) 0.7 % Neutrophils # (Auto) 12.2 TH/MM3 Lymphocytes # (Auto) 0.4 TH/MM3 Monocytes # (Auto) 0.3 TH/MM3 Eosinophils # (Auto) 0.0 TH/MM3 Basophils # (Auto) 0.1 TH/MM3 CBC Comment DIFF FINAL Differential Comment Prothrombin Time 10.0 SEC Prothromb Time International Ratio 0.9 RATIO Activated Partial Thromboplast Time 24.1 SEC Blood Urea Nitrogen 11 MG/DL Creatinine 0.65 MG/DL Random Glucose 187 MG/DL Total Protein 7.2 GM/DL Albumin 3.3 GM/DL Calcium Level 9.1 MG/DL Magnesium Level 2.1 MG/DL Alkaline Phosphatase 83 U/L Aspartate Amino Transf (AST/SGOT) 18 U/L Alanine Aminotransferase (ALT/SGPT) 21 U/L Total Bilirubin 0.9 MG/DL Sodium Level 139 MEQ/L Potassium Level 3.8 MEQ/L Chloride Level 104 MEQ/L Carbon Dioxide Level 24.0 MEQ/L Anion Gap 11 MEQ/L Estimat Glomerular Filtration Rate 88 ML/MIN Total Creatine Kinase 55 U/L Troponin I LESS THAN 0.02 NG/ML MDM Medical Decision Making Medical Screen Exam Complete: Yes Emergency Medical Condition: Yes Differential Diagnosis COPD exacerbation, hypoxia, hypercapnia, pneumonia, PE. Narrative Course Patient roomed in emergency department, she is placed on nasal cannula oxygen and initial saturation of 87% chapito to 92, she was found to be tachycardic and appears to be multifocal atrial tachycardia. She was given 1 dose of Cardizem after DuoNeb's were given. CT PE protocol was negative. Solu-Medrol 125 mg IV , patient was discussed with Dr. Sinclair who is the patient's pulverizing and sifting operator and recommends admission to the hospital placing on antibiotics. Rocephin and azithromycin were given. The patient was discussed with Dr. Noonan for admission who is agreeable. Diagnosis Primary Impression: Respiratory failure with hypoxia Additional Impression: COPD exacerbation Admitting Information Admitting Physician Requests: Admit Condition: Stable Reilly Sutherland MD Aug 03, 2017 13:27
[2017-08-03] MEDS ORDERED: methylPREDNISolone SOD SUCC 125 MG/2 ML VIAL IV PUSH ONE (13:30)
[2017-08-03] MEDS ORDERED: MAGNESIUM SULFATE 1 GM PREMIX 100 ML IV ONE (13:30)
[2017-08-03] MEDS ORDERED: RESP: ALBUTEROL 2.5 MG/IPRATROPIUM 0.5 MG NEB (SCH) NEB ONE (13:30)
[2017-08-03] MEDS: SODIUM CHLORIDE 0.9% FLUSH 10 ML FLUSH IVF PRN ×2 (13:33→15:54)
[2017-08-03 13:37] LABS: BLOOD GAS VENOUS HCO3 26 mmol/L (22-26); BLOOD GAS VENOUS O2 CONTENT 11.8 Vol % (9.0-17.0); BLOOD GAS VENOUS O2 HGB SAT 65 % (70-76); BLOOD GAS VENOUS PCO2 44 mmHg (44-48); BLOOD GAS VENOUS PO2 40 mmHg (35-40); BLOOD GAS VENOUS pH 7.38 (7.360-7.400); CRITICAL VALUE NO; DRAW SITE IV; LITER FLOW 2 L/M; OXYGEN DEVICE NASAL CANNULA; STAT NO; TEMP CORR TO 98.6
[2017-08-03] MEDS ORDERED: PRED5TAB PO (13:49)
[2017-08-03 13:57] LABS: AUTOMATED NEUTROPHIL # 12.2 TH/MM3 (1.8-7.7); BASOPHIL # 0.1 TH/MM3 (0-0.2); BASOPHIL % 0.7 % (0.0-2.0); EOSINOPHIL % 0.3 % (0.0-4.0); HEMATOCRIT 39.1 % (35.0-46.0); HEMO FLAGS DIFF FINAL; LYMPH % 2.9 % (9.0-44.0); LYMPHOCYTE # 0.4 TH/MM3 (1.0-4.8); MEAN CELL VOLUME 93.5 FL (80.0-100.0); MEAN CORPUSCULAR HEMOGLOBIN 29.9 PG (27.0-34.0); MONO % 2.6 % (0.0-8.0); NEUT % 93.5 % (16.0-70.0); PLATELET COUNT 284 TH/MM3 (150-450); RED BLOOD COUNT 4.18 MIL/MM3 (4.00-5.30); RED CELL DISTRIBUTION WIDTH 20.2 % (11.6-17.2)
[2017-08-03 14:09] LABS: CHLORIDE 104 MEQ/L (98-107); POTASSIUM 3.8 MEQ/L (3.5-5.1); SODIUM (NA) 139 MEQ/L (136-145)
[2017-08-03 14:12] LABS: APTT (PATIENT) 24.1 SEC (24.3-30.1); INTERNATIONAL NORMALIZED RATIO 0.9 RATIO
[2017-08-03 14:16] LABS: ANION GAP 11 MEQ/L (5-15); BLOOD UREA NITROGEN 11 MG/DL (7-18); MAGNESIUM 2.1 MG/DL (1.5-2.5)
[2017-08-03 14:19] LABS: ALT (GPT) 21 U/L (10-53); AST (GOT) 18 U/L (15-37); GLOMERULAR FILTRATION RATE 88 ML/MIN (>89)
[2017-08-03 14:20] LABS: TOTAL BILIRUBIN ADULT 0.9 MG/DL (0.2-1.0)
[2017-08-03 14:22] LABS: ALKALINE PHOSPHATASE 83 U/L (45-117)
[2017-08-03 14:29] LABS: CREATINE KINASE 55 U/L (26-192)
[2017-08-03] MEDS ORDERED: IOHEXOL 350 MG/ML 10 ML VIAL (for RAD DIAG) IVCONTRAST ONE (15:10)
--- NOTE | 2017-08-03 15:30 | RADRPT ---
EXAM DATE/TIME: 08/03/2017 15:02 [facility] COMPARISON: CT PULMONARY ANGIOGRAM, November 21, 2016, 14:05. INDICATIONS : Short of breath. IV CONTRAST: 75 cc Omnipaque 350 (iohexol) IV RADIATION DOSE: 7.59 CTDIvol (mGy) MEDICAL HISTORY : Chronic obstructive pulmonary disease. Gastroesophageal reflux disease. SURGICAL HISTORY : Tubal ligation. ENCOUNTER: Initial ACUITY: 2 weeks PAIN SCALE: 0/10 LOCATION: chest TECHNIQUE: Volumetric scanning of the chest was performed using a pulmonary embolism protocol MIP images were re constructed. Using automated exposure control and adjustment of the mA and/or kV according to patien t size, radiation dose was kept as low as reasonably achievable to obtain optimal diagnostic quality images. DICOM format image data is available electronically for review and comparison. Follow-up recommendations for detected pulmonary nodules are based at a minimum on nodule size and pa tient risk factors according to Fleischner Society Guidelines. FINDINGS: PULMONARY ARTERIES: No filling defects are seen in the pulmonary arteries through the segmental level. LUNGS: Emphysematous changes are observed. No acute infiltrate or effusion. No mass. PLEURAE: There is no pleural thickening or pleural effusion. MEDIASTINUM: There is good visualization of the great vessels of the middle mediastinum. There is partial anomalou s pulmonary venous return on the left with the upper lobe moeity draining into the brachiocephalic ve in. No evidence of mediastinal or hilar adenopathy/mass. MUSCULOSKELETAL: Within normal limits for patient age. MISCELLANEOUS: The visualized upper abdominal organs demonstrate no acute abnormality. CONCLUSION: 1. No pulmonary emboli. 2. 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 3. Emphysematous changes. Wally Steinberg Jr., MD on August 03, 2017 at 15:22 Board Certified Radiologist. This report was verified electronically.
--- NOTE | 2017-08-03 15:32 | RADRPT ---
EXAM DATE/TIME: 08/03/2017 14:33 [facility] COMPARISON: CHEST SINGLE AP, July 08, 2017, 9:57. INDICATIONS : Short of breath and difficulty breathing. MEDICAL HISTORY : Chronic obstructive pulmonary disease. Carcinoma, basal cell. SURGICAL HISTORY : Tubal ligation. ENCOUNTER: Initial ACUITY: 3 days PAIN SCORE: 0/10 LOCATION: Bilateral chest FINDINGS: 2 portable frontal views of the chest demonstrate the lungs to be symmetrically aerated without evide nce of mass, infiltrate or effusion. The lungs are hyperaerated. The cardiomediastinal contours are u nremarkable. Osseous structures are intact. CONCLUSION: 1. Hyperinflation suggesting COPD. No acute infiltrate or effusion. Wally Steinberg Jr., MD on August 03, 2017 at 15:30 Board Certified Radiologist. This report was verified electronically.
[2017-08-03] MEDS ORDERED: DILTIAZEM HCL 25 MG/5 ML VIAL IV ONE (15:45)
[2017-08-03] MEDS ORDERED: cefTRIAXone INJ 1,000 MG in SODIUM CHLORIDE 0.9% INJ 100 ML IV ONE (15:45)
[2017-08-03] MEDS ORDERED: AZITHROMYCIN INJ 500 MG in SODIUM CHLOR 0.9% 250 ML INJ 250 ML IV ONE (15:45)
[2017-08-03] MEDS ORDERED: SODIUM CHLORIDE 0.9% FLUSH 10 ML FLUSH IV FLUSH PRN (16:30)
[2017-08-03] MEDS ORDERED: NALOXONE HCL 0.4 MG/ML AMP IV PUSH PRN (16:30)
[2017-08-03] MEDS ORDERED: ONDANSETRON HCL 4 MG/2 ML VIAL IVP PRN (16:30)
[2017-08-03] MEDS ORDERED: RESP: ALBUTEROL 2.5 MG/3 ML NEB (PRN) INH (16:30)
[2017-08-03] MEDS ORDERED: MAGNESIUM HYDROXIDE SUSP 30 ML CUP PO PRN (16:30)
--- NOTE | 2017-08-03 16:51 | HHI.HP ---
[facility] Roscoe Burciaga MD Admission Diagnosis Hypoxic Respiratory Failure, COPD exacerbation. Diagnoses: Travel History International Travel<30 Days: No Contact w/Intl Traveler <30 Da: No Traveled to Known Affected Are: No History of Present Illness Mrs. Govea is an 82 year old female. She is here with 2 weeks of an exacerbated state of her chronic COPD. As an outpatient she has tried increasing her albuterol usage and a steroid taper. Treatments have not worked as an outpatient. She has a minimally productive cough occasionally. No fevers. No nausea/vomiting. She denies any exposures which could be contributory. She is found to have hypoxia without oxygen. At baseline she uses oxygen at night only, presently she is not tolerant off oxygen. No chest pain reported. No other complaints. Review of Systems Constitutional: DENIES: Fever, Chills, Night Sweats Eyes: DENIES: Blurred vision, Diplopia, Eye inflammation, Eye pain Ears, nose, mouth, throat: DENIES: Tinnitus, Hearing loss, Vertigo Respiratory: COMPLAINS OF: Cough, Wheezing, Shortness of breath, DENIES: Apneas , Sputum production Cardiovascular: DENIES: Chest pain, Palpitations, Syncope Gastrointestinal: DENIES: Abdominal pain, Black stools, Bloody stools Musculoskeletal: DENIES: Joint pain, Muscle aches, Stiffness, Joint Swelling Integumentary: DENIES: Abnormal pigmentation, Pruritus, Rash, Nail changes Hematologic/lymphatic: DENIES: Bruising, Lymphadenopathy Immunologic/allergic: DENIES: Eczema, Urticaria Neurologic: DENIES: Abnormal gait, Headache, Paresthesias Psychiatric: DENIES: Anxiety, Confusion, Hallucinations Past Family Social History Past Medical History COPD Esophogeal Strictures Chronic respiratory failure (oxygen dependence at night) Psoriatic Arthritis Basal Cell Cancer Hx Past Surgical History Tubal Ligation AICD Eye Surgery Reported Medications Reported Meds & Active Scripts Active Reported Prednisone 5 Mg Tab 5 Mg PO DAILY Symbicort Inh (Budesonide/Formoterol Fumarate) 80-4.5 Mcg/Act Aero 2 Puff INH Q12HR Aspirin 81 Mg Chew 81 Mg CHEW DAILY Cartia Xt (Diltiazem ER 24 HR) 120 Mg Caper 180 Mg PO DAILY Methotrexate 2.5 Mg Tab 2.5 Mg PO Q7D Leflunomide 20 Mg Tab 20 Mg PO DAILY Folic Acid 400 Mcg Tab 400 Mcg PO DAILY Protonix (Pantoprazole Sodium) 40 Mg Tab 40 Mg PO DAILY Allergies: Coded Allergies: Sulfa (Sulfonamide Antibiotics) (Unverified Allergy, Unknown, Doesn't remember, 07/08/17) codeine (Unverified Allergy, Unknown, Doesn't remember, 07/08/17) Active Ordered Medications Administered Medications Medications (Trade) Dose Ordered Sig/Chandni Route PRN Reason Start Time Stop Time Status Last Admin Dose Admin Sodium Chloride (NS Flush) 2 ml UNSCH PRN IVF FLUSH AFTER USING IV ACCESS 08/03/17 13:30 08/03/17 15:54 Azithromycin 500 mg/Sodium Chloride 250 ml @ 250 mls/hr ONCE ONCE IV 08/03/17 15:45 08/03/17 16:44 08/03/17 16:27 Family History No positive family history, per patient Social History 2 alcohol drinks per night Past history of extensive smoking, quit 10 years ago No illicit drug abuse Physical Exam Vital Signs Vital Signs Date Time Temp Pulse Resp B/P (MAP) Pulse Ox O2 Delivery O2 Flow Rate FiO2 08/03/17 16:36 108 20 140/82 (101) 94 Nasal Cannula 2.00 08/03/17 14:27 97.9 104 20 118/64 (82) 94 Nasal Cannula 2.00 08/03/17 14:05 95 Nasal Cannula 2.00 08/03/17 14:05 95 2.00 08/03/17 13:59 110 20 96 Room Air 08/03/17 13:07 98.0 107 22 134/75 (94) 88 Physical Exam GENERAL: NAD, A&Ox3 HEAD: Normocephalic. NECK: Supple, trachea midline. No lymphadenopathy. EYES: No scleral icterus. No injection or drainage. CARDIOVASCULAR: Regular rate and rhythm without murmurs, gallops, or rubs. RESPIRATORY: Breath sounds equal bilaterally. Mild accessory muscle use. Poor excursion. Trace bilateral wheezing. GASTROINTESTINAL: Abdomen soft, non-tender, nondistended. MUSCULOSKELETAL: No cyanosis, or edema. SKIN: Warm and dry. NEURO: No focal neurological deficitis. Laboratory Laboratory Tests Test 08/03/17 13:25 08/03/17 13:40 Blood Gas Puncture Site IV Blood Gas Patient Temperature 98.6 Venous Blood pH 7.38 Venous Blood Partial Pressure CO2 44 Venous Blood Partial Pressure O2 40 Venous Blood HCO3 26 Venous Blood Oxygen Saturation 65 Venous Blood Oxygen Content 11.8 Venous Blood Base Excess 1.0 Oxygen Delivery Device NASAL CANNULA Blood Gas Liter Flow 2 White Blood Count 13.0 Red Blood Count 4.18 Hemoglobin 12.5 Hematocrit 39.1 Mean Corpuscular Volume 93.5 Mean Corpuscular Hemoglobin 29.9 Mean Corpuscular Hemoglobin Concent 32.0 Red Cell Distribution Width 20.2 Platelet Count 284 Mean Platelet Volume 7.3 Neutrophils (%) (Auto) 93.5 Lymphocytes (%) (Auto) 2.9 Monocytes (%) (Auto) 2.6 Eosinophils (%) (Auto) 0.3 Basophils (%) (Auto) 0.7 Neutrophils # (Auto) 12.2 Lymphocytes # (Auto) 0.4 Monocytes # (Auto) 0.3 Eosinophils # (Auto) 0.0 Basophils # (Auto) 0.1 CBC Comment DIFF FINAL Differential Comment Prothrombin Time 10.0 Prothromb Time International Ratio 0.9 Activated Partial Thromboplast Time 24.1 Blood Urea Nitrogen 11 Creatinine 0.65 Random Glucose 187 Total Protein 7.2 Albumin 3.3 Calcium Level 9.1 Magnesium Level 2.1 Alkaline Phosphatase 83 Aspartate Amino Transf (AST/SGOT) 18 Alanine Aminotransferase (ALT/SGPT) 21 Total Bilirubin 0.9 Sodium Level 139 Potassium Level 3.8 Chloride Level 104 Carbon Dioxide Level 24.0 Anion Gap 11 Estimat Glomerular Filtration Rate 88 Total Creatine Kinase 55 Troponin I LESS THAN 0.02 Result Diagram: 08/03/17 1340 08/03/17 1340 Caprini VTE Risk Assessment Caprini VTE Risk Assessment: Mod/High Risk (score >= 2) Caprini Risk Assessment Model Point Value = 1 Point Value = 2 Point Value = 3 Point Value = 5 Age 41-60 Minor surgery BMI > 25 kg/m2 Swollen legs Varicose veins or History of unexplained or recurrent spontaneous Oral contraceptives or hormone replacement Sepsis (< 1 month) Serious lung disease, including pneumonia (< 1 month) Abnormal pulmonary function Acute myocardial infarction Congestive heart failure (< 1 month) History of inflammatory bowel disease Medical patient at bed rest Age 61-74 Arthroscopic surgery Major open surgery (> 45 min) Laparoscopic surgery (> 45 min) Malignancy Confined to bed (> 72 hours) Immobilizing plaster cast Central venous access Age >= 75 History of VTE Family history of VTE Factor V Leiden Prothrombin [id number] Lupus anticoagulant Anticardiolipin antibodies Elevated serum homocysteine Heparin-induced thrombocytopenia Other congenital or acquired thrombophilia Stroke (< 1 month) Elective arthroplasty Hip, pelvis, or leg fracture Acute spinal cord injury (< 1 month) Prophylaxis Regimen Total Risk Factor Score Risk Level Prophylaxis Regimen 0-1 Low Early ambulation 2 Moderate Order ONE of the following: *Sequential Compression Device (SCD) *Heparin 5000 units SQ BID 3-4 Higher Order ONE of the following medications: *Heparin 5000 units SQ TID *Enoxaparin/Lovenox 40 mg SQ daily (WT < 150 kg, CrCl > 30 mL/min) *Enoxaparin/Lovenox 30 mg SQ daily (WT < 150 kg, CrCl > 10-29 mL/min) *Enoxaparin/Lovenox 30 mg SQ BID (WT < 150 kg, CrCl > 30 mL/min) AND/OR *Sequential Compression Device (SCD) 5 or more Highest Order ONE of the following medications: *Heparin 5000 units SQ TID (Preferred with Epidurals) *Enoxaparin/Lovenox 40 mg SQ daily (WT < 150 kg, CrCl > 30 mL/min) *Enoxaparin/Lovenox 30 mg SQ daily (WT < 150 kg, CrCl > 10-29 mL/min) *Enoxaparin/Lovenox 30 mg SQ BID (WT < 150 kg, CrCl > 30 mL/min) AND *Sequential Compression Device (SCD) Assessment and Plan Problem List: (1) Failure of outpatient treatment ICD Code: Z78.9 - Other specified health status (2) COPD exacerbation ICD Code: J44.1 - Chronic obstructive pulmonary disease with (acute) exacerbation Status: Acute (3) Respiratory failure with hypoxia ICD Code: J96.91 - Respiratory failure, unspecified with hypoxia Status: Acute (4) Chronic obstructive pulmonary disease ICD Code: J44.9 - Chronic obstructive pulmonary disease Status: Chronic (5) Chronic obstructive pulmonary disease with acute exacerbation ICD Code: J44.1 - Chronic obstructive pulmonary disease with (acute) exacerbation Status: Acute Assessment and Plan Assessment and Plan 82 year old female admitted with COPD Exacerbation and outpatient treatment failure. COPD exacerbation Outpatient treatment failure Acute respiratory failure on chronic respiratory failure Hypoxia Continue oxygen supplements as needed Schedule duo nebs When necessary albuterol Azithromycin Systemic steroids Follow for improvement in respiratory status Follow for improvement in exertional tolerance next Pulmonology consulted Esophogeal Strictures Psoriatic Arthritis Stable Follow clinically DVT prophylaxis Lovenox Physician Certification 2 Midnight Certification Type: Admission for Inpatient Services Order for Inpatient Services The services are ordered in accordance with Medicare regulations or non- Medicare payer requirements, as applicable. In the case of services not specified as inpatient-only, they are appropriately provided as inpatient services in accordance with the 2-midnight benchmark. Estimated LOS (days): 3 days is the estimated time the patient will need to remain in the hospital, assuming treatment plan goals are met and no additional complications. Post-Hospital Plan: Home Dez Noonan MD Aug 03, 2017 16:51
[2017-08-03] MEDS: ENOXAPARIN SODIUM 40 MG/0.4 ML SYRINGE SQ SCH (18:00)
--- NOTE | 2017-08-03 18:49 | EKG ---
Date Performed: 08/03/2017 Time Performed: 13:43:40 PTAGE: 82 years EKG: SINUS TACHYCARDIA WITH FREQUENT SUPRAVENTRICULAR PREMATURE COMPLEXES INDETERMINATE AXIS NON SPECIFIC T WAVE CHANGES ABNORMAL RHYTHM ECG PREVIOUS TRACING : 07/08/2017 09.59 No significant change from previous tracing noted. DOCTOR: Dom Hicks Interpretating Date/Time 08/03/2017 18:48:20
--- NOTE | 2017-08-03 20:07 | MB ---
cc: MELVIN CARDENAS DATE OF CONSULTATION 08/03/[address] Dez Noonan REASON FOR CONSULTATION COPD exacerbation. HISTORY OF PRESENT ILLNESS Ms. Govea is a pleasant 82-year-old female with long standing history of COPD. The patient uses oxygen at nighttime. Over the last 4-5 days she has not been feeling well. She had increasing shortness of breath. Has cough, congestion, not able to bring up any phlegm. The patient saw Dr. Sinclair two weeks ago and again she saw him today and she was advised to come to the hospital. She was worked up in the emergency room. She has a CTA of the chest done. It does not show any pulmonary embolism. 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 Her CBC showed WBC 13,000, hemoglobin 12.5, hematocrit 39, MCV 93, platelet count 284. Sodium 139, potassium 3.8, chloride 104, CO2 24, BUN 11, creatinine 0.65. Venous blood gas pH 7.38, pC02 44, p02 40. PAST MEDICAL HISTORY Significant for history of psoriatic arthritis, COPD, hypertension. Basal cell carcinoma, esophageal stricture. MEDICATIONS She has currently takin. Zithromax 500 milligrams a day. 2. Solu-Medrol 60 milligrams daily. 4. Lovenox 40 milligrams a day. 5. Albuterol/Atrovent nebulizer treatments. ALLERGIES ALLERGY TO SULFA AND CODEINE. SOCIAL HISTORY She is . 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 She has a history of smoking. She quit when she was [id number]. She takes two drinks of vodka every night. FAMILY HISTORY She has two daughters. Her son in a motor vehicle accident. REVIEW OF SYSTEMS She walks only a short distance and it is difficult for her to walk. Her weight is stable. No DVT or pulmonary embolism. PHYSICAL EXAMINATION GENERAL: Shows pleasant elderly female mild short of breath. VITAL SIGNS: Blood pressure was 121/79, heart rate 100, respirations 20, temperature 98. HEENT: Pupils are equal and reactive to light. Oral mucosa, nasal mucosa normal. NECK: Supple. JVP not raised. CHEST: She has expiratory rhonchi. CARDIOVASCULAR: S1-S2 normal. ABDOMEN: Soft, nontender, nondistended. Bowel sounds present. EXTREMITIES: No edema. IMPRESSION 1. COPD exacerbation. 2. Bronchitis. 3. Psoriatic arthritis. 4. Hypertension. PLAN I discussed treatment with the patient. Will give her IV Solu-Medrol, aerosol treatment. Continue antibiotic, supplement her oxygen, Mucinex 600 milligrams twice a day and Symbicort 160/4.5 two puffs twice a day. Further treatment depends on the course in the hospital. Thank you Dr. Dez Noonan for this consultation. MD KIANNA Mathias/ANABELLE /7:02 PM /7:30 PM MTDD
[2017-08-03] MEDS: RESP: ALBUTEROL 2.5 MG/IPRATROPIUM 0.5 MG NEB (SCH) INH (21:00)
[2017-08-03] MEDS: methylPREDNISolone SOD SUCC 125 MG/2 ML VIAL IV PUSH SCH (21:31)
[2017-08-03] MEDS: SODIUM CHLORIDE 0.9% FLUSH 10 ML FLUSH IV FLUSH SCH (21:32)
[2017-08-03] MEDS: guaiFENesin E.R. 600 MG TAB PO SCH (21:32)
[2017-08-03] MEDS: BUDESONIDE-FORMOTEROL 160/4.5 MCG INHALER INH SCH (21:32)
[2017-08-04] VITALS (8 sets, daily range): BP systolic 115–146; BP diastolic 68–82; PULSE 95–112; RESP 16–20; TEMP 96.2–98.2; O2SAT 94–100
[2017-08-04] MEDS: methylPREDNISolone SOD SUCC 125 MG/2 ML VIAL IV PUSH SCH ×4 (02:18→22:04)
[2017-08-04] MEDS: RESP: ALBUTEROL 2.5 MG/IPRATROPIUM 0.5 MG NEB (SCH) INH ×4 (03:35→21:02)
[2017-08-04 06:35] LABS: AUTOMATED NEUTROPHIL # 8.7 TH/MM3 (1.8-7.7); BASOPHIL # 0.4 TH/MM3 (0-0.2); EOSINOPHIL # 0.1 TH/MM3 (0-0.4); EOSINOPHIL % 1.1 % (0.0-4.0); HEMATOCRIT 34.1 % (35.0-46.0); LYMPH % 1.9 % (9.0-44.0); LYMPHOCYTE # 0.2 TH/MM3 (1.0-4.8); MEAN CELL VOLUME 93.4 FL (80.0-100.0); MEAN CORPUSCULAR HEMOGLOBIN 29.2 PG (27.0-34.0); MEAN CORPUSCULAR HGB CONC 31.3 % (32.0-36.0); MONO % 0.5 % (0.0-8.0); NEUT % 92.5 % (16.0-70.0); PLATELET COUNT 252 TH/MM3 (150-450); RED BLOOD COUNT 3.65 MIL/MM3 (4.00-5.30); RED CELL DISTRIBUTION WIDTH 20.2 % (11.6-17.2); WHITE BLOOD COUNT 9.4 TH/MM3 (4.0-11.0)
[2017-08-04 06:43] LABS: CHLORIDE 107 MEQ/L (98-107); POTASSIUM 3.8 MEQ/L (3.5-5.1); SODIUM (NA) 141 MEQ/L (136-145)
[2017-08-04 06:50] LABS: ANION GAP 8 MEQ/L (5-15); BLOOD UREA NITROGEN 12 MG/DL (7-18)
[2017-08-04 06:53] LABS: ALT (GPT) 17 U/L (10-53); AST (GOT) 10 U/L (15-37); GLOMERULAR FILTRATION RATE 141 ML/MIN (>89)
[2017-08-04 06:55] LABS: TOTAL BILIRUBIN ADULT 0.4 MG/DL (0.2-1.0)
[2017-08-04 06:56] LABS: ALKALINE PHOSPHATASE 68 U/L (45-117)
[2017-08-04 07:12] LABS: HEMO FLAGS DIFF FINAL
[2017-08-04] MEDS ORDERED: INFLUENZA VIRUS VACCINE (QUADRIVALENT) 0.5 ML SYR IM ONE (10:00)
[2017-08-04] MEDS: guaiFENesin E.R. 600 MG TAB PO SCH ×2 (10:23→22:03)
[2017-08-04] MEDS: BUDESONIDE-FORMOTEROL 160/4.5 MCG INHALER INH SCH ×2 (10:24→21:00)
[2017-08-04] MEDS: SODIUM CHLORIDE 0.9% FLUSH 10 ML FLUSH IV FLUSH SCH ×2 (10:24→22:03)
[2017-08-04] MEDS ORDERED: AZITHROMYCIN INJ 500 MG in SODIUM CHLOR 0.9% 250 ML INJ 250 ML IV SCH (16:00)
[2017-08-04] MEDS: ENOXAPARIN SODIUM 40 MG/0.4 ML SYRINGE SQ SCH (17:43)
[2017-08-05] VITALS (10 sets, daily range): BP systolic 120–161; BP diastolic 62–86; PULSE 57–110; RESP 18–24; TEMP 96.2–97.9; O2SAT 94–100
[2017-08-05] MEDS: methylPREDNISolone SOD SUCC 125 MG/2 ML VIAL IV PUSH SCH ×4 (01:14→21:37)
[2017-08-05] MEDS: RESP: ALBUTEROL 2.5 MG/IPRATROPIUM 0.5 MG NEB (SCH) INH ×4 (03:32→19:22)
[2017-08-05] MEDS: guaiFENesin E.R. 600 MG TAB PO SCH ×2 (08:46→21:36)
[2017-08-05] MEDS: SODIUM CHLORIDE 0.9% FLUSH 10 ML FLUSH IV FLUSH SCH ×2 (08:46→21:37)
[2017-08-05] MEDS: BUDESONIDE-FORMOTEROL 160/4.5 MCG INHALER INH SCH ×2 (08:46→21:00)
--- NOTE | 2017-08-05 11:36 | HHI.PR ---
Subjective Remarks No late note from 08/04: Patient stated she is breathing better 30% still have dry cough with wheezing, she reported being able to walk okay on O2 No fever or chills Objective Vitals Vital Signs Date Time Temp Pulse Resp B/P (MAP) Pulse Ox O2 Delivery O2 Flow Rate FiO2 08/05/17 09:38 99 Nasal Cannula 2.00 08/05/17 08:10 96.2 109 20 120/77 (91) 96 08/05/17 04:11 109 08/05/17 04:00 96.2 105 20 140/86 (104) 96 08/05/17 00:00 96.7 101 20 127/62 (83) 96 08/04/17 21:02 95 Nasal Cannula 2.00 08/04/17 20:00 96.2 96 20 128/68 (88) 95 08/04/17 16:23 98.0 96 16 115/70 (85) 98 08/04/17 15:24 94 Nasal Cannula 2.00 08/04/17 12:30 96.6 112 20 146/74 (98) 95 I/O 08/04/17 08/04/17 08/04/17 08/05/17 08/05/17 08/05/17 07:00 15:00 23:00 07:00 15:00 23:00 Intake Total 120 ml 550 ml 120 ml Balance 120 ml 550 ml 120 ml Intake Oral 120 ml 550 ml 120 ml # Voids 2 3 2 # Bowel Movements 0 Result Diagram: 08/04/17 0600 08/04/17 0600 Objective Remarks GENERAL: This is a well-nourished, well-developed patient, in no apparent distress. CARDIOVASCULAR: Regular rate and rhythm without murmurs, gallops, or rubs. RESPIRATORY: Positive wheezes, diminish breath sounds bilaterally. GASTROINTESTINAL: Abdomen soft, non-tender,nondistended. Normal active bowel sounds MUSCULOSKELETAL: Extremities without clubbing, cyanosis, or edema. NEURO: Alert & Oriented x4 to person, place, time, situation. Moves all ext x4 A/P Problem List: (1) Failure of outpatient treatment ICD Code: Z78.9 - Other specified health status (2) COPD exacerbation ICD Code: J44.1 - Chronic obstructive pulmonary disease with (acute) exacerbation Status: Acute (3) Respiratory failure with hypoxia ICD Code: J96.91 - Respiratory failure, unspecified with hypoxia Status: Acute (4) Chronic obstructive pulmonary disease ICD Code: J44.9 - Chronic obstructive pulmonary disease Status: Chronic (5) Chronic obstructive pulmonary disease with acute exacerbation ICD Code: J44.1 - Chronic obstructive pulmonary disease with (acute) exacerbation Status: Acute Assessment and Plan 82 year old female admitted with COPD Exacerbation and outpatient treatment failure. COPD exacerbation Outpatient treatment failure Acute respiratory failure on chronic respiratory failure Hypoxia Continue oxygen supplements as needed DuoNeb scheduled and as needed, Azithromycin Solu-Medrol Pulmonology consult Esophogeal Strictures Psoriatic Arthritis Stable Follow clinically DVT prophylaxis Nata Sun MD Aug 05, 2017 11:36
[2017-08-05] MEDS: AZITHROMYCIN 250 MG TAB PO SCH (17:09)
[2017-08-05] MEDS: ENOXAPARIN SODIUM 40 MG/0.4 ML SYRINGE SQ SCH (17:09)
--- NOTE | 2017-08-05 17:10 | HHI.PR ---
Subjective Remarks i am still not feeling well , my buffing machine tender told me to stay till monday Objective Vitals Vital Signs Date Time Temp Pulse Resp B/P (MAP) Pulse Ox O2 Delivery O2 Flow Rate FiO2 08/05/17 16:00 96.9 107 18 140/76 (97) 95 08/05/17 14:20 96 08/05/17 12:01 97.9 57 22 161/66 (97) 100 08/05/17 09:38 99 Nasal Cannula 2.00 08/05/17 08:10 96.2 109 20 120/77 (91) 96 08/05/17 04:11 109 08/05/17 04:00 96.2 105 20 140/86 (104) 96 08/05/17 00:00 96.7 101 20 127/62 (83) 96 08/04/17 21:02 95 Nasal Cannula 2.00 08/04/17 20:00 96.2 96 20 128/68 (88) 95 I/O 08/04/17 08/04/17 08/04/17 08/05/17 08/05/17 08/05/17 07:00 15:00 23:00 07:00 15:00 23:00 Intake Total 120 ml 550 ml 120 ml 800 ml Balance 120 ml 550 ml 120 ml 800 ml Intake Oral 120 ml 550 ml 120 ml 800 ml # Voids 2 3 2 # Bowel Movements 0 Result Diagram: 08/04/17 0600 08/04/17 0600 Objective Remarks GENERAL: This is a well-nourished, well-developed patient, in no apparent distress. CARDIOVASCULAR: Regular rate and rhythm without murmurs, gallops, or rubs. RESPIRATORY: Positive wheezes, diminish breath sounds bilaterally. GASTROINTESTINAL: Abdomen soft, non-tender,nondistended. Normal active bowel sounds MUSCULOSKELETAL: Extremities without clubbing, cyanosis, or edema. NEURO: Alert & Oriented x4 to person, place, time, situation. Moves all ext x4 A/P Problem List: (1) Failure of outpatient treatment ICD Code: Z78.9 - Other specified health status (2) COPD exacerbation ICD Code: J44.1 - Chronic obstructive pulmonary disease with (acute) exacerbation Status: Acute (3) Respiratory failure with hypoxia ICD Code: J96.91 - Respiratory failure, unspecified with hypoxia Status: Acute (4) Chronic obstructive pulmonary disease ICD Code: J44.9 - Chronic obstructive pulmonary disease Status: Chronic (5) Chronic obstructive pulmonary disease with acute exacerbation ICD Code: J44.1 - Chronic obstructive pulmonary disease with (acute) exacerbation Status: Acute Assessment and Plan 08/05: pt stated she still doesn't feel better , d/w nurse we will put a call for dr Sinclair to see if he wanted to keep pt till monday , i will dec solumedrol to q8h A/P 82 year old female admitted with COPD Exacerbation and outpatient treatment failure. COPD exacerbation Outpatient treatment failure Acute respiratory failure on chronic respiratory failure Hypoxia Continue oxygen supplements as needed DuoNeb scheduled and as needed, Azithromycin Solu-Medrol Pulmonology consult Esophogeal Strictures Psoriatic Arthritis Stable Follow clinically DVT prophylaxis Nata Sun MD Aug 05, 2017 17:10
[2017-08-06] VITALS (7 sets, daily range): BP systolic 114–147; BP diastolic 63–96; PULSE 78–108; RESP 16–20; TEMP 96–97.6; O2SAT 92–97
[2017-08-06] MEDS: methylPREDNISolone SOD SUCC 125 MG/2 ML VIAL IV PUSH SCH (05:17)
[2017-08-06] MEDS: RESP: ALBUTEROL 2.5 MG/IPRATROPIUM 0.5 MG NEB (SCH) INH ×3 (07:36→19:25)
[2017-08-06] MEDS: SODIUM CHLORIDE 0.9% FLUSH 10 ML FLUSH IV FLUSH SCH ×2 (08:56→21:04)
[2017-08-06] MEDS: BUDESONIDE-FORMOTEROL 160/4.5 MCG INHALER INH SCH ×2 (08:56→21:00)
[2017-08-06] MEDS: guaiFENesin E.R. 600 MG TAB PO SCH ×2 (08:56→21:04)
--- NOTE | 2017-08-06 09:44 | HHI.PR ---
Subjective Remarks alert less sob Objective Vital Signs Date Time Temp Pulse Resp B/P (MAP) Pulse Ox O2 Delivery O2 Flow Rate FiO2 08/06/17 08:00 96.6 100 20 136/86 (103) 96 08/06/17 07:39 97 Nasal Cannula 2.00 08/06/17 04:00 96.8 99 20 147/96 (113) 96 08/06/17 04:00 97.6 78 16 114/63 (80) 96 08/05/17 20:00 96 08/05/17 20:00 97.1 110 24 121/67 (85) 94 08/05/17 19:22 96 Nasal Cannula 2.00 08/05/17 16:00 96.9 107 18 140/76 (97) 95 08/05/17 14:20 96 08/05/17 12:01 97.9 57 22 161/66 (97) 100 I/O 08/05/17 08/05/17 08/05/17 08/06/17 08/06/17 08/06/17 07:00 15:00 23:00 07:00 15:00 23:00 Intake Total 120 ml 800 ml 1080 ml 480 ml Balance 120 ml 800 ml 1080 ml 480 ml Intake Oral 120 ml 800 ml 1080 ml 480 ml # Voids 2 5 1 # Bowel Movements 2 0 Result Diagram: 08/04/17 0608/04/17 06 Objective Remarks GENERAL: SKIN: Warm and dry. HEAD: Atraumatic. Normocephalic. EYES: Pupils equal and round. No scleral icterus. No injection or drainage. ENT: No nasal bleeding or discharge. Mucous membranes pink and moist. NECK: Trachea midline. No JVD. CARDIOVASCULAR: Regular rate and rhythm. RESPIRATORY: No accessory muscle use. Clear to auscultation. Breath sounds equal bilaterally. GASTROINTESTINAL: Abdomen soft, non-tender, nondistended. Hepatic and splenic margins not palpable. MUSCULOSKELETAL: Extremities without clubbing, cyanosis, or edema. No obvious deformities. NEUROLOGICAL: Awake and alert. No obvious cranial nerve deficits. Motor grossly within normal limits. Five out of 5 muscle strength in the arms and legs. Normal speech. PSYCHIATRIC: Appropriate mood and affect; insight and judgment normal. Assessment and Plan Assessment and Plan COPD EXACERBATION IMPROVING plan continue bronchodilators change ti po steroids home AM if stable Yahir Sinclair MD Aug 06, 2017 09:44
[2017-08-06] MEDS ORDERED: PRED10PA2 PO (11:34)
[2017-08-06] MEDS ORDERED: AZIT250T3 PO (11:34)
--- NOTE | 2017-08-06 11:35 | HHI.DS ---
Discharge Summary Admission Date Aug 03, 2017 at 16:28 Admitting Diagnosis Hypoxic Respiratory Failure, COPD exacerbation. (1) Failure of outpatient treatment ICD Code: Z78.9 - Other specified health status (2) COPD exacerbation ICD Code: J44.1 - Chronic obstructive pulmonary disease with (acute) exacerbation Status: Acute (3) Respiratory failure with hypoxia ICD Code: J96.91 - Respiratory failure, unspecified with hypoxia Status: Acute (4) Chronic obstructive pulmonary disease ICD Code: J44.9 - Chronic obstructive pulmonary disease Status: Chronic (5) Chronic obstructive pulmonary disease with acute exacerbation ICD Code: J44.1 - Chronic obstructive pulmonary disease with (acute) exacerbation Status: Acute Procedures None Brief History - From Admission Mrs. Govea is an 82 year old female. She is here with 2 weeks of an exacerbated state of her chronic COPD. As an outpatient she has tried increasing her albuterol usage and a steroid taper. Treatments have not worked as an outpatient. She has a minimally productive cough occasionally. No fevers. No nausea/vomiting. She denies any exposures which could be contributory. She is found to have hypoxia without oxygen. At baseline she uses oxygen at night only, presently she is not tolerant off oxygen. No chest pain reported. No other complaints. CBC/BMP: 08/04/17 0600 08/04/17 0600 Significant Findings Laboratory Tests Test 08/03/17 13:25 08/03/17 13:40 08/04/17 06:00 Venous Blood Oxygen Saturation 65 % (70-76) White Blood Count 13.0 TH/MM3 (4.0-11.0) Red Cell Distribution Width 20.2 % (11.6-17.2) 20.2 % (11.6-17.2) Neutrophils (%) (Auto) 93.5 % (16.0-70.0) 92.5 % (16.0-70.0) Lymphocytes (%) (Auto) 2.9 % (9.0-44.0) 1.9 % (9.0-44.0) Neutrophils # (Auto) 12.2 TH/MM3 (1.8-7.7) 8.7 TH/MM3 (1.8-7.7) Lymphocytes # (Auto) 0.4 TH/MM3 (1.0-4.8) 0.2 TH/MM3 (1.0-4.8) Activated Partial Thromboplast Time 24.1 SEC (24.3-30.1) Random Glucose 187 MG/DL (74-106) 196 MG/DL (74-106) Albumin 3.3 GM/DL (3.4-5.0) 2.8 GM/DL (3.4-5.0) Estimat Glomerular Filtration Rate 88 ML/MIN (>89) Troponin I LESS THAN 0.02 NG/ML Red Blood Count 3.65 MIL/MM3 (4.00-5.30) Hemoglobin 10.7 GM/DL (11.6-15.3) Hematocrit 34.1 % (35.0-46.0) Mean Corpuscular Hemoglobin Concent 31.3 % (32.0-36.0) Basophils (%) (Auto) 4.0 % (0.0-2.0) Basophils # (Auto) 0.4 TH/MM3 (0-0.2) Creatinine 0.43 MG/DL (0.50-1.00) Total Protein 6.1 GM/DL (6.4-8.2) Aspartate Amino Transf (AST/SGOT) 10 U/L (15-37) PE at Discharge GENERAL: This is a well-nourished, well-developed patient, in no apparent distress. CARDIOVASCULAR: Regular rate and rhythm without murmurs, gallops, or rubs. RESPIRATORY: Positive wheezes, diminish breath sounds bilaterally. GASTROINTESTINAL: Abdomen soft, non-tender,nondistended. Normal active bowel sounds MUSCULOSKELETAL: Extremities without clubbing, cyanosis, or edema. NEURO: Alert & Oriented x4 to person, place, time, situation. Moves all ext x4 Hospital Course 82 years old female admitted for advanced COPD exacerbation, treated with O2 DuoNeb Solu-Medrol, pulmonary consult, Symbicort, Zithromax. Pulmonary clear for DC today to follow up as an outpatient Pt Condition on Discharge: Good Discharge Disposition: Discharge Home Discharge Time: <= 30 minutes Discharge Instructions DIET: Follow Instructions for: Heart Healthy Diet Activities you can perform: Weight Bearing as Faizan Follow up Referrals: Pulmonology - 1 Week with Yahir Sinclair MD New Medications: Prednisone (48) 10 mg tab Dose Pack (Prednisone (48) 10 mg tab Dose Pack) 10 Mg Dspk 10 MG PO DIRECTED for Inflammation, #1 DSPK 0 Refills Azithromycin (Azithromycin) 250 Mg Tab 500 MG PO Q24H for copd, #5 TAB Continued Medications: Aspirin (Aspirin) 81 Mg Chew 81 MG CHEW DAILY, TAB 0 Refills Budesonide-Formoterol Inh (Symbicort Inh) 80-4.5 Mcg/Act Aero 2 PUFF INH Q12HR for Asthma Management, #1 INHALER 0 Refills Diltiazem ER 24 HR (Cartia Xt) 120 Mg Caper 180 MG PO DAILY, #30 CAP 0 Refills Folic Acid (Folic Acid) 400 Mcg Tab 400 MCG PO DAILY for Nutritional Supplement, TAB 0 Refills Leflunomide (Leflunomide) 20 Mg Tab 20 MG PO DAILY, TAB Methotrexate (Methotrexate) 2.5 Mg Tab 2.5 MG PO Q7D, TAB 0 Refills Pantoprazole (Protonix) 40 Mg Tab 40 MG PO DAILY for Reflux, #30 TAB 0 Refills Nata Guaman MD Aug 06, 2017 11:35
--- NOTE | 2017-08-06 11:38 | HHI.PR ---
Subjective Remarks Stable doing well On O2 nasal cannula, seen by radioisotope technologist Dr. Roca, plan to discharge home tomorrow if stable Objective Vitals Vital Signs Date Time Temp Pulse Resp B/P (MAP) Pulse Ox O2 Delivery O2 Flow Rate FiO2 08/06/17 08:00 96.6 100 20 136/86 (103) 96 08/06/17 07:39 97 Nasal Cannula 2.00 08/06/17 04:00 96.8 99 20 147/96 (113) 96 08/06/17 04:00 97.6 78 16 114/63 (80) 96 08/05/17 20:00 96 08/05/17 20:00 97.1 110 24 121/67 (85) 94 08/05/17 19:22 96 Nasal Cannula 2.00 08/05/17 16:00 96.9 107 18 140/76 (97) 95 08/05/17 14:20 96 08/05/17 12:01 97.9 57 22 161/66 (97) 100 I/O 08/05/17 08/05/17 08/05/17 08/06/17 08/06/17 08/06/17 07:00 15:00 23:00 07:00 15:00 23:00 Intake Total 120 ml 800 ml 1080 ml 480 ml Balance 120 ml 800 ml 1080 ml 480 ml Intake Oral 120 ml 800 ml 1080 ml 480 ml # Voids 2 5 1 # Bowel Movements 2 0 Result Diagram: 08/04/17 0600 08/04/17 0600 Objective Remarks GENERAL: This is a well-nourished, well-developed patient, in no apparent distress. CARDIOVASCULAR: Regular rate and rhythm without murmurs, gallops, or rubs. RESPIRATORY: Positive wheezes, diminish breath sounds bilaterally. GASTROINTESTINAL: Abdomen soft, non-tender,nondistended. Normal active bowel sounds MUSCULOSKELETAL: Extremities without clubbing, cyanosis, or edema. NEURO: Alert & Oriented x4 to person, place, time, situation. Moves all ext x4 A/P Problem List: (1) Failure of outpatient treatment ICD Code: Z78.9 - Other specified health status (2) COPD exacerbation ICD Code: J44.1 - Chronic obstructive pulmonary disease with (acute) exacerbation Status: Acute (3) Respiratory failure with hypoxia ICD Code: J96.91 - Respiratory failure, unspecified with hypoxia Status: Acute (4) Chronic obstructive pulmonary disease ICD Code: J44.9 - Chronic obstructive pulmonary disease Status: Chronic (5) Chronic obstructive pulmonary disease with acute exacerbation ICD Code: J44.1 - Chronic obstructive pulmonary disease with (acute) exacerbation Status: Acute Assessment and Plan 08/05: pt stated she still doesn't feel better , d/w nurse we will put a call for dr Sinclair to see if he wanted to keep pt till monday , i will dec solumedrol to q8h 08/06: Continue current management switch to by mouth prednisone, discharge in a.m. if continued to be stable as per radioisotope technologist A/P 82 year old female admitted with COPD Exacerbation and outpatient treatment failure. COPD exacerbation Outpatient treatment failure Acute respiratory failure on chronic respiratory failure Hypoxia Continue oxygen supplements as needed DuoNeb scheduled and as needed, Azithromycin Solu-Medrol Pulmonology consult Esophogeal Strictures Psoriatic Arthritis Stable Follow clinically DVT prophylaxis Nata Sun MD Aug 06, 2017 11:38
[2017-08-06] MEDS: AZITHROMYCIN 250 MG TAB PO SCH (17:57)
[2017-08-06] MEDS: ENOXAPARIN SODIUM 40 MG/0.4 ML SYRINGE SQ SCH (17:57)
[2017-08-06] MEDS: predniSONE 20 MG TAB PO SCH (21:04)
[2017-08-07 06:00] VITALS: BP 156/91; PULSE 106; RESP 20; TEMP 96.3; O2SAT 96
[2017-08-07 07:44] VITALS: O2SAT 96
[2017-08-07] MEDS: RESP: ALBUTEROL 2.5 MG/IPRATROPIUM 0.5 MG NEB (SCH) INH (07:44)
[2017-08-07 08:00] VITALS: BP 152/81; PULSE 86; RESP 20; TEMP 96; O2SAT 95
[2017-08-07] MEDS: guaiFENesin E.R. 600 MG TAB PO SCH (09:43)
[2017-08-07] MEDS: BUDESONIDE-FORMOTEROL 160/4.5 MCG INHALER INH SCH (09:44)
[2017-08-07] MEDS: predniSONE 20 MG TAB PO SCH (09:44)
[2017-08-07] MEDS: SODIUM CHLORIDE 0.9% FLUSH 10 ML FLUSH IV FLUSH SCH (09:44)
[2017-08-07] MEDS ORDERED: DILTIAZEM-CD 180 MG CAP ER PO SCH (11:00)
[2017-08-07 12:23] VITALS: BP 147/93; PULSE 94; RESP 20; TEMP 97.2; O2SAT 97
== END 2017-08-07 13:34 | disposition home or self-care (01) | DRG 189 ==
LOC: PHED 13:00 → PHEDA 16:28 → PH3A 17:28
PROVIDERS: ADMIT Hospitalist; ATTEND Hospitalist
DX: J96.21 Acute and chronic respiratory failure with hypoxia (principal); J44.0 Chronic obstructive pulmonary disease with (acute) lower respiratory infection; Z99.81 Dependence on supplemental oxygen; J44.1 Chronic obstructive pulmonary disease with (acute) exacerbation; K22.2 Esophageal obstruction; J40 Bronchitis, not specified as acute or chronic; L40.50 Arthropathic psoriasis, unspecified; I10 Essential (primary) hypertension; Z85.828 Personal history of other malignant neoplasm of skin; Z87.891 Personal history of nicotine dependence
CPT/HCPCS: 71010; 71275; 80053; 82550; 82805; 83735; 84484; 85025; 85610; 85730; 93005; 94640; 94664; 94667; 94668; 96365; 96367; 96375; J0456; J0696; J1650; J2930; J3475; J7050; J7512; Q9967

== ENCOUNTER 2017-11-29 09:36 | Inpatient (IN) | payer OTHER, MEDICARE ==
[2017-11-29] VITALS (20 sets, daily range): BP systolic 119–152; BP diastolic 64–121; PULSE 84–145; RESP 17–31; TEMP 98–100.8; O2SAT 92–97
[~2017-11-29] VITALS: Ht 162.6 cm; Wt 57.9 kg
[~2017-11-29 09:36] MED LIST changes: +ASPI-516 CHEW; -ASPI81CH CHEW; +PRED10PA2 PO; -PRED20 PO; +PRED5TAB PO
[2017-11-29] MEDS ORDERED: SODIUM CHLORIDE 0.9% FLUSH 10 ML FLUSH IVF PRN ×2 (09:45)
[2017-11-29] MEDS ORDERED: AZITHROMYCIN INJ 500 MG in SODIUM CHLOR 0.9% 250 ML INJ 250 ML IV ONE (09:45)
[2017-11-29] MEDS ORDERED: PIPERACIL-TAZO 4.5 GM PREMIX 100 ML IV ONE (09:45)
--- NOTE | 2017-11-29 09:54 | PD ---
HPI Chief Complaint: Respiratory Distress Time Seen by Provider: 09:41 Travel History International Travel<30 days: No Contact w/Intl Traveler<30days: No Traveled to known affect area: No History of Present Illness HPI 82 y/o female presents with shortness of breath by ambulance with CPAP. Her initial oxygen saturation was in the 80s on her home nasal cannula. The ambulance team states that her gave her Tylenol and a breathing treatment this morning when she was feeling short of breath and had a fever. The patient confirms that she has been feeling short of breath since this morning but can only nod her head yes or no initially so history is limited. She was given Solu-Medrol in route. PFSH Past Medical History Hx Anticoagulant Therapy: No Arthritis: Yes (PSORIATIC ARTHRITIS) Asthma: No Autoimmune Disease: No Blood Disorders: No Anxiety: No Depression: No Heart Rhythm Problems: Yes (RAPID HEART RATE) Cancer: Yes Cardiovascular Problems: No Chemotherapy: No Congestive Heart Failure: No COPD: Yes (2LPM NC HS PRN) Cerebrovascular Accident: No Coronary Artery Disease: No Diabetes: No Diminished Hearing: No Endocrine: No Gastrointestinal Disorders: Yes (ESOPHAGEAL STRICTURES) Genitourinary: No Headaches: No Hypertension: No Immune Disorder: No Implanted Vascular Access Dvce: Yes Musculoskeletal: No Neurologic: No Psychiatric: No Reproductive: No Respiratory: Yes (COPD) Integumentary: Yes (shingles, psoriatic arthritis ) Immunizations Current: Yes Migraines: No Radiation Therapy: Yes Seizures: No Shingles: Yes (10/2015) Thyroid Disease: No Menopausal: Yes Tubal Ligation: Yes Past Surgical History Abdominal Surgery: No AICD: No Arteriovenous Shunt: No Cardiac Surgery: No Ear Surgery: No Endocrine Surgery: No Eye Surgery: No Genitourinary Surgery: No Gynecologic Surgery: Yes (Tubal ligation) Hysterectomy: No Insulin Pump: No Joint Replacement: No Neurologic Surgery: No Oral Surgery: No Pacemaker: No Thoracic Surgery: No Other Surgery: Yes (SEVERED ACHILLES TENDON - CASTED) Social History Alcohol Use: Yes (2 drinks each night) Tobacco Use: No (quit in her 50's) Substance Use: No Allergies-Medications (Allergen,Severity, Reaction): Coded Allergies: Sulfa (Sulfonamide Antibiotics) (Unverified Allergy, Unknown, Doesn't remember, 07/08/17) codeine (Unverified Allergy, Unknown, Doesn't remember, 07/08/17) Reported Meds & Prescriptions Reported Meds & Active Scripts Active Prednisone (48) 10 mg tab Dose Pack (Prednisone) 10 Mg Dspk 10 Mg PO DIRECTED Azithromycin 250 Mg Tab 500 Mg PO Q24H Reported Prednisone 5 Mg Tab 5 Mg PO DAILY Symbicort Inh (Budesonide/Formoterol Fumarate) 80-4.5 Mcg/Act Aero 2 Puff INH Q12HR Aspirin 81 Mg Chew 81 Mg CHEW DAILY Cartia Xt (Diltiazem ER 24 HR) 120 Mg Caper 180 Mg PO DAILY Methotrexate 2.5 Mg Tab 2.5 Mg PO Q7D Leflunomide 20 Mg Tab 20 Mg PO DAILY Folic Acid 400 Mcg Tab 400 Mcg PO DAILY Protonix (Pantoprazole Sodium) 40 Mg Tab 40 Mg PO DAILY Review of Systems Except as stated in HPI: all other systems reviewed are Neg Physical Exam Exam Limitations: Clinical Condition Narrative General: Able to have nod her head yes no to questioning Skin: No rash Eyes: Pupils equal, trachea midline Neck: No JVD Cardiovascular: Tachycardic rate regular rhythm Respiratory: Increased respiratory effort noted, decreased breath sounds bilaterally Abdomen: nondistended Extremities: No edema noted Neuro: Moves all extremities, patient stated her name Data Data Last Documented VS Vital Signs Date Time Temp Pulse Resp B/P (MAP) Pulse Ox O2 Delivery O2 Flow Rate FiO2 11/29/17 10:45 114 20 119/68 (85) 96 BiPAP 12.00 35 11/29/17 09:42 100.8 Orders Orders Complete Blood Count With Diff (11/29/17 09:41) Comprehensive Metabolic Panel (11/29/17 09:41) B-Type Natriuretic Peptide (11/29/17 09:41) Act Partial Throm Time (Ptt) (11/29/17 09:41) Prothrombin Time / Inr (Pt) (11/29/17 09:41) Magnesium (Mg) (11/29/17 09:41) Ckmb (Isoenzyme) Profile (11/29/17 09:41) Troponin I (11/29/17 09:41) Arterial Blood Gas (Abg) (11/29/17 10:30) Urinalysis - C+S If Indicated (11/29/17 09:41) Influenzae A/B Antigen (11/29/17 09:41) Blood Culture (11/29/17 09:41) Iv Access Insert/Monitor (11/29/17 09:41) Electrocardiogram (11/29/17 09:41) Ecg Monitoring (11/29/17 09:41) Oximetry (11/29/17 09:41) Oxygen Administration (11/29/17 09:41) Chest, Single Ap (11/29/17 09:41) Sodium Chloride 0.9% Flush (Ns Flush) (11/29/17 09:45) Albuterol-Ipratropium Neb (Duoneb Neb) (11/29/17 09:45) Resp Bipap / Cpap Non Invas Vt (11/29/17 09:41) Lactic Acid Sepsis Protocol (11/29/17 09:41) Sodium Chloride 0.9% Flush (Ns Flush) (11/29/17 09:45) Piperacil-Tazo 4.5 Gm Premix (Zosyn 4.5 (11/29/17 09:45) Azithromycin Inj (Zithromax Inj) (11/29/17 09:45) Sodium Chlorid 0.9% 500 Ml Inj (Ns 500 M (11/29/17 10:00) Sodium Chlor 0.9% 1000 Ml Inj (Ns 1000 M (11/29/17 11:00) Admit Order (Ed Use Only) (11/29/17 11:17) Labs Laboratory Tests Test 11/29/17 09:37 11/29/17 09:55 11/29/17 10:35 White Blood Count 11.5 TH/MM3 Red Blood Count 3.80 MIL/MM3 Hemoglobin 11.2 GM/DL Hematocrit 33.8 % Mean Corpuscular Volume 89.2 FL Mean Corpuscular Hemoglobin 29.6 PG Mean Corpuscular Hemoglobin Concent 33.2 % Red Cell Distribution Width 22.1 % Platelet Count 210 TH/MM3 Mean Platelet Volume 7.4 FL Neutrophils (%) (Auto) 85.7 % Lymphocytes (%) (Auto) 4.8 % Monocytes (%) (Auto) 7.0 % Eosinophils (%) (Auto) 2.2 % Basophils (%) (Auto) 0.3 % Neutrophils # (Auto) 9.8 TH/MM3 Lymphocytes # (Auto) 0.6 TH/MM3 Monocytes # (Auto) 0.8 TH/MM3 Eosinophils # (Auto) 0.3 TH/MM3 Basophils # (Auto) 0.0 TH/MM3 CBC Comment DIFF FINAL Differential Comment Prothrombin Time 9.9 SEC Prothromb Time International Ratio 1.0 RATIO Activated Partial Thromboplast Time 20.8 SEC Blood Urea Nitrogen 11 MG/DL Creatinine 0.62 MG/DL Random Glucose 122 MG/DL Total Protein 6.2 GM/DL Albumin 3.1 GM/DL Calcium Level 8.5 MG/DL Magnesium Level 1.8 MG/DL Alkaline Phosphatase 62 U/L Aspartate Amino Transf (AST/SGOT) 19 U/L Alanine Aminotransferase (ALT/SGPT) 18 U/L Total Bilirubin 0.4 MG/DL Sodium Level 137 MEQ/L Potassium Level 3.8 MEQ/L Chloride Level 103 MEQ/L Carbon Dioxide Level 27.1 MEQ/L Anion Gap 7 MEQ/L Estimat Glomerular Filtration Rate 93 ML/MIN Total Creatine Kinase 32 U/L Troponin I LESS THAN 0.02 NG/ML B-Type Natriuretic Peptide 51 PG/ML Lactic Acid Level 1.5 mmol/L Blood Gas Puncture Site RT RADIAL Blood Gas Patient Temperature 98.6 Blood Gas HCO3 26 mmol/L Blood Gas Base Excess 2.0 mmol/L Blood Gas Oxygen Saturation 95 % Arterial Blood pH 7.46 Arterial Blood Partial Pressure CO2 37 mmHG Arterial Blood Partial Pressure O2 116 mmHG Arterial Blood Oxygen Content 13.8 Vol % Arterial Blood Carboxyhemoglobin 1.0 % Arterial Blood Methemoglobin 2.1 % Blood Gas Hemoglobin 10.3 G/DL Oxygen Delivery Device BIPAP Blood Gas Ventilator Setting IPAP 12/EPAP5 Blood Gas Inspired Oxygen 35 % [facility] Medical Decision Making Medical Screen Exam Complete: Yes Emergency Medical Condition: Yes Medical Record Reviewed: Yes (Past history confirmed, frequent visits for COPD) Interpretation(s) EKG is sinus tachycardia in the 120s without STEMI criteria but limited with wandering baseline CBC & BMP Diagram 11/29/17 09:37 Total Protein 6.2 L, Albumin 3.1 L, Calcium Level 8.5, Magnesium Level 1.8, Alkaline Phosphatase 62, Aspartate Amino Transf (AST/SGOT) 19, Alanine Aminotransferase (ALT/SGPT) 18, Total Bilirubin 0.4 Last 24 hours Impressions Chest X-Ray 11/29/17 0941 Signed Impressions: Service Date/Time: Wednesday, November 29, 2017 10:07 - CONCLUSION: Mild comes to cardiomegaly. Previous CT scan had shown moderate emphysematous changes but no PE Naren Ahmadi MD FACR Differential Diagnosis COPD exacerbation, pneumonia, sepsis, CHF Narrative Course We will check blood work, chest x-ray, influenza and dose with duo nebs, Zosyn, azithromycin and reevaluate ed workup with copd exacerbation, patient improving on bipap, will admit to the hospital for further care, patient updated and agrees to admit Critical Care Narrative Aggregate critical care time was 31 minutes. Time to perform other separately billable procedures was not included in the critical care time. My time did not include minutes spent treating any other patients simultaneously or on activities that did not directly contribute to the patient's treatment. The services I provided to this patient were to treat and/or prevent clinically significant deterioration that could result in: Respiratory failure, I provided critical care services requiring my management, as noted below: Chart data review, documentation time, medication orders and management, vital sign assessments/reviewing monitor data, ordering and reviewing lab tests, ordering and interpreting/reviewing x-rays and diagnostic studies, care of the patient and discussion of the patient with the admitting physicians. Sepsis Criteria SIRS Criteria (2 or more): Heart rate over 90, RR > 20 or PaCO2 < 32 Sepsis Criteria (SIRS+source): Infect source susp/known Criteria Outcome: Meets sepsis criteria Physician Communication Physician Communication dr barreto states to admit in the icu for respiratory failure Diagnosis Primary Impression: Chronic obstructive pulmonary disease with acute exacerbation Additional Impressions: Sinus tachycardia Acute on chronic respiratory failure Qualified Codes: J96.20 - Acute and chronic respiratory failure, unspecified whether with hypoxia or hypercapnia Sepsis Qualified Codes: A41.9 - Sepsis, unspecified organism Admitting Information Admitting Physician Requests: Admit Bonnie Raphael MD Nov 29, 2017 09:54
[2017-11-29] MEDS: RESP: ALBUTEROL 2.5 MG/IPRATROPIUM 0.5 MG NEB (SCH) INH ×4 (09:58→19:36)
[2017-11-29] MEDS ORDERED: SODIUM CHLORID 0.9% 500 ML INJ 500 ML IV ONE (10:00)
[2017-11-29 10:04] LABS: AUTOMATED NEUTROPHIL # 9.8 TH/MM3 (1.8-7.7); BASOPHIL % 0.3 % (0.0-2.0); EOSINOPHIL # 0.3 TH/MM3 (0-0.4); EOSINOPHIL % 2.2 % (0.0-4.0); HEMATOCRIT 33.8 % (35.0-46.0); HEMOGLOBIN 11.2 GM/DL (11.6-15.3); LYMPH % 4.8 % (9.0-44.0); LYMPHOCYTE # 0.6 TH/MM3 (1.0-4.8); MEAN CELL VOLUME 89.2 FL (80.0-100.0); MEAN CORPUSCULAR HEMOGLOBIN 29.6 PG (27.0-34.0); MEAN CORPUSCULAR HGB CONC 33.2 % (32.0-36.0); MEAN PLATELET VOLUME 7.4 FL (7.0-11.0); MONOCYTE # 0.8 TH/MM3 (0-0.9); NEUT % 85.7 % (16.0-70.0); PLATELET COUNT 210 TH/MM3 (150-450); RED CELL DISTRIBUTION WIDTH 22.1 % (11.6-17.2); WHITE BLOOD COUNT 11.5 TH/MM3 (4.0-11.0)
[2017-11-29 10:13] LABS: CHLORIDE 103 MEQ/L (98-107); SODIUM (NA) 137 MEQ/L (136-145)
[2017-11-29 10:16] LABS: ALBUMIN 3.1 GM/DL (3.4-5.0); BICARBONATE 27.1 MEQ/L (21.0-32.0); CALCIUM 8.5 MG/DL (8.5-10.1)
[2017-11-29 10:17] LABS: BLOOD UREA NITROGEN 11 MG/DL (7-18); GLUCOSE,RANDOM 122 MG/DL (74-106); MAGNESIUM 1.8 MG/DL (1.5-2.5)
--- NOTE | 2017-11-29 10:18 | RADRPT ---
EXAM DATE/TIME: 11/29/2017 10:07 [place] COMPARISON: CT PULMONARY ANGIOGRAM, August 03, 2017, 15:02. CHEST SINGLE AP, August 03, 2017, 14:33. INDICATIONS : Severe shortness of breath. Fever. MEDICAL HISTORY : Chronic obstructive pulmonary disease. Emphysema. Gastroesophageal reflux disease. Arthritis. Sle ep apnea. Rapid hearbeat. Wheezing. SURGICAL HISTORY : Tubal ligation. ENCOUNTER: Initial ACUITY: 1 day PAIN SCORE: 0/10 LOCATION: chest FINDINGS: Mild compensated cardiomegaly without infiltrate, pneumothorax or failure. The portion of the bony [place] visualized is unremarkable. CONCLUSION: Mild comes to cardiomegaly. Previous CT scan had shown moderate emphysematous changes but no PE Naren Ahmadi MD FACR on November 29, 2017 at 10:14 Board Certified Radiologist. This report was verified electronically.
[2017-11-29 10:20] LABS: ALT (GPT) 18 U/L (10-53); AST (GOT) 19 U/L (15-37); CREATININE 0.62 MG/DL (0.50-1.00); GLOMERULAR FILTRATION RATE 93 ML/MIN (>89)
[2017-11-29 10:21] LABS: TOTAL BILIRUBIN ADULT 0.4 MG/DL (0.2-1.0); TOTAL PROTEIN 6.2 GM/DL (6.4-8.2)
[2017-11-29 10:23] LABS: ALKALINE PHOSPHATASE 62 U/L (45-117)
[2017-11-29 10:24] LABS: PROTHROMBIN TIME - PATIENT 9.9 SEC (9.8-11.6)
[2017-11-29 10:25] LABS: TROPONIN I LESS THAN 0.02 NG/ML (0.02-0.05)
--- NOTE | 2017-11-29 10:52 | EKG ---
Date Performed: 11/29/2017 Time Performed: 09:41:41 PTAGE: 82 years EKG: SINUS TACHYCARDIA WITH OCCASIONAL SUPRAVENTRICULAR PREMATURE COMPLEXES INDETERMINATE AXIS A BNORMAL RHYTHM ECG PREVIOUS TRACING : 08/03/2017 13.43 DOCTOR: Eben Cuellar Interpretating Date/Time 11/29/2017 10:50:37
[2017-11-29] MEDS ORDERED: SODIUM CHLOR 0.9% 1000 ML INJ 1,000 ML IV ONE (11:00)
[2017-11-29] MEDS ORDERED: AZITHROMYCIN 250 MG TAB PO SCH (11:45)
[2017-11-29] MEDS ORDERED: methylPREDNISolone SOD SUCC 125 MG/2 ML VIAL IV PUSH ONE (12:00)
[2017-11-29] MEDS: cefTRIAXone INJ 1,000 MG in SODIUM CHLORIDE 0.9% INJ 100 ML IV SCH (12:16)
[2017-11-29] MEDS ORDERED: RESP: ALBUTEROL 2.5 MG/3 ML NEB (PRN) INH (14:00)
--- NOTE | 2017-11-29 15:48 | HHI.HP ---
[facility] Service [facility] Primary Care Physician Roscoe Burciaga MD Admission Diagnosis copd exacerbation, respiratory failure Diagnoses: Travel History International Travel<30 Days: No Contact w/Intl Traveler <30 Da: No Traveled to Known Affected Are: No Past Family Social History Allergies: Coded Allergies: Sulfa (Sulfonamide Antibiotics) (Unverified Allergy, Unknown, Doesn't remember, 07/08/17) codeine (Unverified Allergy, Unknown, Doesn't remember, 07/08/17) Physical Exam Vital Signs Vital Signs Date Time Temp Pulse Resp B/P (MAP) Pulse Ox O2 Delivery O2 Flow Rate FiO2 11/29/17 14:00 98 11/29/17 13:05 106 11/29/17 13:00 90 20 121/68 (85) 96 Nasal Cannula 2.00 11/29/17 12:06 99 20 128/70 (89) 96 Nasal Cannula 2.00 11/29/17 10:45 114 20 119/68 (85) 96 BiPAP 12.00 35 11/29/17 10:15 106 20 128/67 (87) 96 BiPAP 12.00 35 11/29/17 09:42 100.8 108 22 152/121 (131) 97 11/29/17 09:40 96 BiPAP 12.00 35 11/29/17 09:40 22 96 BiPAP 12.00 35 11/29/17 09:40 100.8 145 22 152/121 (131) 96 11/29/17 09:40 96 BiPAP 12.00 35 11/29/17 09:30 97 35 Physical Exam GENERAL: This is a well-nourished, well-developed patient, in no apparent distress. SKIN: No rashes, ecchymoses or lesions. Cool and dry. HEAD: Atraumatic. Normocephalic. No temporal or scalp tenderness. EYES: Pupils equal round and reactive. Extraocular motions intact. No scleral icterus. No injection or drainage. ENT: Nose without bleeding, purulent drainage or septal hematoma. Throat without erythema, tonsillar hypertrophy or exudate. Uvula midline. Airway patent. NECK: Trachea midline. No JVD or lymphadenopathy. Supple, nontender, no meningeal signs. CARDIOVASCULAR: Regular rate and rhythm without murmurs, gallops, or rubs. RESPIRATORY: Clear to auscultation. Breath sounds equal bilaterally. No wheezes , rales, or rhonchi. GASTROINTESTINAL: Abdomen soft, non-tender, nondistended. No hepato-splenomegaly , or palpable masses. No guarding. MUSCULOSKELETAL: Extremities without clubbing, cyanosis, or edema. No joint tenderness, effusion, or edema noted. No calf tenderness. Negative Homans sign bilaterally. NEUROLOGICAL: Awake and alert. Cranial nerves II through XII intact. Motor and sensory grossly within normal limits. Five out of 5 muscle strength in all muscle groups. Normal speech. Laboratory Laboratory Tests Test 11/29/17 09:37 11/29/17 09:55 11/29/17 10:35 White Blood Count 11.5 Red Blood Count 3.80 Hemoglobin 11.2 Hematocrit 33.8 Mean Corpuscular Volume 89.2 Mean Corpuscular Hemoglobin 29.6 Mean Corpuscular Hemoglobin Concent 33.2 Red Cell Distribution Width 22.1 Platelet Count 210 Mean Platelet Volume 7.4 Neutrophils (%) (Auto) 85.7 Lymphocytes (%) (Auto) 4.8 Monocytes (%) (Auto) 7.0 Eosinophils (%) (Auto) 2.2 Basophils (%) (Auto) 0.3 Neutrophils # (Auto) 9.8 Lymphocytes # (Auto) 0.6 Monocytes # (Auto) 0.8 Eosinophils # (Auto) 0.3 Basophils # (Auto) 0.0 CBC Comment DIFF FINAL Differential Comment Prothrombin Time 9.9 Prothromb Time International Ratio 1.0 Activated Partial Thromboplast Time 20.8 Blood Urea Nitrogen 11 Creatinine 0.62 Random Glucose 122 Total Protein 6.2 Albumin 3.1 Calcium Level 8.5 Magnesium Level 1.8 Alkaline Phosphatase 62 Aspartate Amino Transf (AST/SGOT) 19 Alanine Aminotransferase (ALT/SGPT) 18 Total Bilirubin 0.4 Sodium Level 137 Potassium Level 3.8 Chloride Level 103 Carbon Dioxide Level 27.1 Anion Gap 7 Estimat Glomerular Filtration Rate 93 Total Creatine Kinase 32 Troponin I LESS THAN 0.02 B-Type Natriuretic Peptide 51 Lactic Acid Level 1.5 Blood Gas Puncture Site RT RADIAL Blood Gas Patient Temperature 98.6 Blood Gas HCO3 26 Blood Gas Base Excess 2.0 Blood Gas Oxygen Saturation 95 Arterial Blood pH 7.46 Arterial Blood Partial Pressure CO2 37 Arterial Blood Partial Pressure O2 116 Arterial Blood Oxygen Content 13.8 Arterial Blood Carboxyhemoglobin 1.0 Arterial Blood Methemoglobin 2.1 Blood Gas Hemoglobin 10.3 Oxygen Delivery Device BIPAP Blood Gas Ventilator Setting IPAP 12/EPAP5 Blood Gas Inspired Oxygen 35 Date/Time Source Procedure Growth Status 11/29/17 09:55 Blood Peripheral Aerobic Blood Culture Pending Received 11/29/17 09:55 Blood Peripheral Anaerobic Blood Culture Pending Received 11/29/17 10:00 Nasal Aspirate Influenza Types A,B Antigen (JON) - Final NEGATIVE FOR FLU A AND B ANTIGEN.... Complete Result Diagram: 11/29/1737 11/29/1737 Caprini VTE Risk Assessment Caprini Risk Assessment Model Point Value = 1 Point Value = 2 Point Value = 3 Point Value = 5 Age 41-60 Minor surgery BMI > 25 kg/m2 Swollen legs Varicose veins or History of unexplained or recurrent spontaneous Oral contraceptives or hormone replacement Sepsis (< 1 month) Serious lung disease, including pneumonia (< 1 month) Abnormal pulmonary function Acute myocardial infarction Congestive heart failure (< 1 month) History of inflammatory bowel disease Medical patient at bed rest Age 61-74 Arthroscopic surgery Major open surgery (> 45 min) Laparoscopic surgery (> 45 min) Malignancy Confined to bed (> 72 hours) Immobilizing plaster cast Central venous access Age >= 75 History of VTE Family history of VTE Factor V Leiden Prothrombin [id number] Lupus anticoagulant Anticardiolipin antibodies Elevated serum homocysteine Heparin-induced thrombocytopenia Other congenital or acquired thrombophilia Stroke (< 1 month) Elective arthroplasty Hip, pelvis, or leg fracture Acute spinal cord injury (< 1 month) Prophylaxis Regimen Total Risk Factor Score Risk Level Prophylaxis Regimen 0-1 Low Early ambulation 2 Moderate Order ONE of the following: *Sequential Compression Device (SCD) *Heparin 5000 units SQ BID 3-4 Higher Order ONE of the following medications: *Heparin 5000 units SQ TID *Enoxaparin/Lovenox 40 mg SQ daily (WT < 150 kg, CrCl > 30 mL/min) *Enoxaparin/Lovenox 30 mg SQ daily (WT < 150 kg, CrCl > 10-29 mL/min) *Enoxaparin/Lovenox 30 mg SQ BID (WT < 150 kg, CrCl > 30 mL/min) AND/OR *Sequential Compression Device (SCD) 5 or more Highest Order ONE of the following medications: *Heparin 5000 units SQ TID (Preferred with Epidurals) *Enoxaparin/Lovenox 40 mg SQ daily (WT < 150 kg, CrCl > 30 mL/min) *Enoxaparin/Lovenox 30 mg SQ daily (WT < 150 kg, CrCl > 10-29 mL/min) *Enoxaparin/Lovenox 30 mg SQ BID (WT < 150 kg, CrCl > 30 mL/min) AND *Sequential Compression Device (SCD) Assessment and Plan Problem List: (1) Acute on chronic respiratory failure ICD Code: J96.20 - Acute and chronic respiratory failure, unspecified whether with hypoxia or hypercapnia Status: Acute (2) COPD (chronic obstructive pulmonary disease) ICD Code: J44.9 - Chronic obstructive pulmonary disease, unspecified Status: Acute Physician Certification 2 Midnight Certification Type: Admission for Inpatient Services Order for Inpatient Services The services are ordered in accordance with Medicare regulations or non- Medicare payer requirements, as applicable. In the case of services not specified as inpatient-only, they are appropriately provided as inpatient services in accordance with the 2-midnight benchmark. Estimated LOS (days): 3 3 days is the estimated time the patient will need to remain in the hospital, assuming treatment plan goals are met and no additional complications. Problem Qualifiers (1) Acute on chronic respiratory failure: Qualified Codes: J96.20 - Acute and chronic respiratory failure, unspecified whether with hypoxia or hypercapnia Anjelica Wood MD Nov 29, 2017 15:48
--- NOTE | 2017-11-29 16:01 | HHI.HP ---
[facility] Service [facility] Primary Care Physician Roscoe Burciaga MD Admission Diagnosis copd exacerbation, respiratory failure Diagnoses: (1) Acute on chronic respiratory failure (2) COPD (chronic obstructive pulmonary disease) Chief Complaint: Shortness of breath Travel History International Travel<30 Days: No Contact w/Intl Traveler <30 Da: No Traveled to Known Affected Are: No History of Present Illness patient is 82-year-old feel with a known history of COPD. She came in with increased work of breathing for the last week. She had associated cough. There is no fever or chills. There are no sick contacts. Patient came to the emergency room for further evaluation after nebulizers were ineffective. She normally has oxygen at home at 2 L. Lately she has been using oxygen 24 hours as well as her nebulizers reactively. In the emergency room she was quite hypoxemic and required bronchodilators as well as BiPAP. Here she has improved with IV steroids. Patient is admitted for respiratory failure due to COPD exacerbation Review of Systems Constitutional: DENIES: Diaphoretic episodes, Fatigue, Fever, Weight gain, Weight loss, Chills, Dizziness, Change in appetite, Night Sweats Endocrine: DENIES: Abnorml menstrual pattern, Heat/cold intolerance, Polydipsia , Polyuria, Polyphagia Eyes: DENIES: Blurred vision, Diplopia, Eye inflammation, Eye pain, Vision loss , Photosensitivity, Double Vision Ears, nose, mouth, throat: DENIES: Tinnitus, Hearing loss, Vertigo, Nasal discharge, Oral lesions, Throat pain, Hoarseness, Ear Pain, Running Nose, Epistaxis, Sinus Pain, Toothache, Odynophagia Respiratory: COMPLAINS OF: Cough, Sputum production, Shortness of breath, DENIES: Apneas, Snoring, Wheezing, Hemoptysis Cardiovascular: DENIES: Chest pain, Palpitations, Syncope, Dyspnea on Exertion , PND, Lower Extremity Edema, Orthopnea, Claudication Gastrointestinal: DENIES: Abdominal pain, Black stools, Bloody stools, Constipation, Diarrhea, Nausea, Vomiting, Difficulty Swallowing, Anorexia Genitourinary: COMPLAINS OF: Urinary incontinence, DENIES: Abnormal vaginal bleeding, Dysmenorrhea, Dyspareunia, Sexual dysfunction, Urinary frequency, Urgency, Hematuria, Dysuria, Nocturia, Vaginal discharge Musculoskeletal: DENIES: Joint pain, Muscle aches, Stiffness, Joint Swelling, Back pain, Neck pain Integumentary: DENIES: Abnormal pigmentation, Pruritus, Rash, Nail changes, Breast masses, Breast skin changes, Nipple discharge Hematologic/lymphatic: DENIES: Bruising, Lymphadenopathy Immunologic/allergic: DENIES: Eczema, Urticaria Neurologic: DENIES: Abnormal gait, Headache, Localized weakness, Paresthesias, Seizures, Speech Problems, Tremor, Poor Balance Psychiatric: DENIES: Anxiety, Confusion, Mood changes, Depression, Hallucinations, Agitation, Suicidal Ideation, Homicidal Ideation, Delusions Except as stated in HPI: all other systems reviewed are Neg Past Family Social History Past Medical History Urinary incontinence "Rapid heart rate but not A. fib " COPD Psoriatic arthritis Chronic steroids Past Surgical History Tubal ligation Achilles heel surgery Reported Medications Reviewed in the EMR, also takes ditropan for bladder instability Allergies: Coded Allergies: Sulfa (Sulfonamide Antibiotics) (Unverified Allergy, Unknown, Doesn't remember, 07/08/17) codeine (Unverified Allergy, Unknown, Doesn't remember, 07/08/17) Active Ordered Medications reviewed in the EMR Family History Mother at 83, father from stomach cancer but wasn't alcoholic Social History Patient has quit tobacco over 30 years ago but has an [id number] history Physical Exam Vital Signs Vital Signs Date Time Temp Pulse Resp B/P (MAP) Pulse Ox O2 Delivery O2 Flow Rate FiO2 11/29/17 14:00 98 11/29/17 13:05 106 11/29/17 13:00 90 20 121/68 (85) 96 Nasal Cannula 2.00 11/29/17 12:06 99 20 128/70 (89) 96 Nasal Cannula 2.00 11/29/17 10:45 114 20 119/68 (85) 96 BiPAP 12.00 35 11/29/17 10:15 106 20 128/67 (87) 96 BiPAP 12.00 35 11/29/17 09:42 100.8 108 22 152/121 (131) 97 11/29/17 09:40 96 BiPAP 12.00 35 11/29/17 09:40 22 96 BiPAP 12.00 35 11/29/17 09:40 100.8 145 22 152/121 (131) 96 11/29/17 09:40 96 BiPAP 12.00 35 11/29/17 09:30 97 35 Physical Exam GENERAL: This is a well-nourished, well-developed patient, with pursed lipped breathing at rest SKIN: No rashes, ecchymoses or lesions. Cool and dry. HEAD: Atraumatic. Normocephalic. No temporal or scalp tenderness. EYES: Pupils equal round and reactive. Extraocular motions intact. No scleral icterus. No injection or drainage. ENT: Nose without bleeding, purulent drainage or septal hematoma. Throat without erythema, tonsillar hypertrophy or exudate. Uvula midline. Airway patent. NECK: Trachea midline. No JVD or lymphadenopathy. Supple, nontender, no meningeal signs. CARDIOVASCULAR: Regular rate and rhythm without murmurs, gallops, or rubs. RESPIRATORY: Decreased air flow bilaterally GASTROINTESTINAL: Abdomen soft, non-tender, nondistended. No hepato-splenomegaly , or palpable masses. No guarding. MUSCULOSKELETAL: Extremities without clubbing, cyanosis, or edema. No joint tenderness, effusion, or edema noted. No calf tenderness. Negative Homans sign bilaterally. NEUROLOGICAL: Awake and alert. Cranial nerves II through XII intact. Motor and sensory grossly within normal limits. Five out of 5 muscle strength in all muscle groups. Normal speech. Laboratory Laboratory Tests Test 11/29/17 09:37 11/29/17 09:55 11/29/17 10:35 White Blood Count 11.5 Red Blood Count 3.80 Hemoglobin 11.2 Hematocrit 33.8 Mean Corpuscular Volume 89.2 Mean Corpuscular Hemoglobin 29.6 Mean Corpuscular Hemoglobin Concent 33.2 Red Cell Distribution Width 22.1 Platelet Count 210 Mean Platelet Volume 7.4 Neutrophils (%) (Auto) 85.7 Lymphocytes (%) (Auto) 4.8 Monocytes (%) (Auto) 7.0 Eosinophils (%) (Auto) 2.2 Basophils (%) (Auto) 0.3 Neutrophils # (Auto) 9.8 Lymphocytes # (Auto) 0.6 Monocytes # (Auto) 0.8 Eosinophils # (Auto) 0.3 Basophils # (Auto) 0.0 CBC Comment DIFF FINAL Differential Comment Prothrombin Time 9.9 Prothromb Time International Ratio 1.0 Activated Partial Thromboplast Time 20.8 Blood Urea Nitrogen 11 Creatinine 0.62 Random Glucose 122 Total Protein 6.2 Albumin 3.1 Calcium Level 8.5 Magnesium Level 1.8 Alkaline Phosphatase 62 Aspartate Amino Transf (AST/SGOT) 19 Alanine Aminotransferase (ALT/SGPT) 18 Total Bilirubin 0.4 Sodium Level 137 Potassium Level 3.8 Chloride Level 103 Carbon Dioxide Level 27.1 Anion Gap 7 Estimat Glomerular Filtration Rate 93 Total Creatine Kinase 32 Troponin I LESS THAN 0.02 B-Type Natriuretic Peptide 51 Lactic Acid Level 1.5 Blood Gas Puncture Site RT RADIAL Blood Gas Patient Temperature 98.6 Blood Gas HCO3 26 Blood Gas Base Excess 2.0 Blood Gas Oxygen Saturation 95 Arterial Blood pH 7.46 Arterial Blood Partial Pressure CO2 37 Arterial Blood Partial Pressure O2 116 Arterial Blood Oxygen Content 13.8 Arterial Blood Carboxyhemoglobin 1.0 Arterial Blood Methemoglobin 2.1 Blood Gas Hemoglobin 10.3 Oxygen Delivery Device BIPAP Blood Gas Ventilator Setting IPAP 12/EPAP5 Blood Gas Inspired Oxygen 35 Date/Time Source Procedure Growth Status 11/29/17 09:55 Blood Peripheral Aerobic Blood Culture Pending Received 11/29/17 09:55 Blood Peripheral Anaerobic Blood Culture Pending Received 11/29/17 10:00 Nasal Aspirate Influenza Types A,B Antigen (JON) - Final NEGATIVE FOR FLU A AND B ANTIGEN.... Complete Result Diagram: 11/29/1737 11/29/17 09 Imaging Last Impressions Chest X-Ray 11/29/17940 Signed Impressions: Service Date/Time: Wednesday, November 29, 2017 10:07 - CONCLUSION: Mild comes to cardiomegaly. Previous CT scan had shown moderate emphysematous changes but no PE Naren Ahmadi MD FACR Caprini VTE Risk Assessment Caprini VTE Risk Assessment: Mod/High Risk (score >= 2) Caprini Risk Assessment Model Point Value = 1 Point Value = 2 Point Value = 3 Point Value = 5 Age 41-60 Minor surgery BMI > 25 kg/m2 Swollen legs Varicose veins or History of unexplained or recurrent spontaneous Oral contraceptives or hormone replacement Sepsis (< 1 month) Serious lung disease, including pneumonia (< 1 month) Abnormal pulmonary function Acute myocardial infarction Congestive heart failure (< 1 month) History of inflammatory bowel disease Medical patient at bed rest Age 61-74 Arthroscopic surgery Major open surgery (> 45 min) Laparoscopic surgery (> 45 min) Malignancy Confined to bed (> 72 hours) Immobilizing plaster cast Central venous access Age >= 75 History of VTE Family history of VTE Factor V Leiden Prothrombin [id number] Lupus anticoagulant Anticardiolipin antibodies Elevated serum homocysteine Heparin-induced thrombocytopenia Other congenital or acquired thrombophilia Stroke (< 1 month) Elective arthroplasty Hip, pelvis, or leg fracture Acute spinal cord injury (< 1 month) Prophylaxis Regimen Total Risk Factor Score Risk Level Prophylaxis Regimen 0-1 Low Early ambulation 2 Moderate Order ONE of the following: *Sequential Compression Device (SCD) *Heparin 5000 units SQ BID 3-4 Higher Order ONE of the following medications: *Heparin 5000 units SQ TID *Enoxaparin/Lovenox 40 mg SQ daily (WT < 150 kg, CrCl > 30 mL/min) *Enoxaparin/Lovenox 30 mg SQ daily (WT < 150 kg, CrCl > 10-29 mL/min) *Enoxaparin/Lovenox 30 mg SQ BID (WT < 150 kg, CrCl > 30 mL/min) AND/OR *Sequential Compression Device (SCD) 5 or more Highest Order ONE of the following medications: *Heparin 5000 units SQ TID (Preferred with Epidurals) *Enoxaparin/Lovenox 40 mg SQ daily (WT < 150 kg, CrCl > 30 mL/min) *Enoxaparin/Lovenox 30 mg SQ daily (WT < 150 kg, CrCl > 10-29 mL/min) *Enoxaparin/Lovenox 30 mg SQ BID (WT < 150 kg, CrCl > 30 mL/min) AND *Sequential Compression Device (SCD) Assessment and Plan Problem List: (1) Acute on chronic respiratory failure ICD Code: J96.20 - Acute and chronic respiratory failure, unspecified whether with hypoxia or hypercapnia Status: Acute Plan: This patient is seen in follow-up for COPD exacerbation which appears to be improved after BiPAP we will continue this and follow-up clinically Echocardiogram pending r/o heart failure (2) COPD (chronic obstructive pulmonary disease) ICD Code: J44.9 - Chronic obstructive pulmonary disease, unspecified Status: Acute Plan: Continue bronchodilators, IV steroids, pulmonary consult pending O2 to wean Add IV Rocephin and IV azithromycin Code Status full code Problem Qualifiers (1) Acute on chronic respiratory failure: Qualified Codes: J96.20 - Acute and chronic respiratory failure, unspecified whether with hypoxia or hypercapnia Anjelica Wood MD Nov 29, 2017 16:01
[2017-11-29 18:47] LABS: BILIRUBIN, URINE NEG (NEG); BLOOD, URINE NEG (NEG); GLUCOSE,URINE 1000 OR GREATER mg/dL (NEG); KETONE, URINE TRACE mg/dL (NEG); NITRITE,URINE NEG (NEG); URINE LEUKOCYTE ESTERASE NEG (NEG)
[2017-11-29 18:48] LABS: URINE COLOR YELLOW (YELLW/STRAW)
[2017-11-29 18:51] LABS: RBC, URINE 0-2 /hpf (0-3); SQUAMOUS EPITHELIAL CELL URINE 0-5 /hpf (0-5); WBC, URINE 0-2 /hpf (0-5)
[2017-11-29] MEDS: ENOXAPARIN SODIUM 40 MG/0.4 ML SYRINGE SQ SCH (18:57)
[2017-11-29] MEDS: methylPREDNISolone SOD SUCC 125 MG/2 ML VIAL IV PUSH SCH (18:57)
[2017-11-29] MEDS: OXYBUTYNIN CHLORIDE 5 MG TAB PO SCH (21:49)
[2017-11-29] MEDS: SODIUM CHLORIDE 0.9% FLUSH 10 ML FLUSH IV FLUSH SCH (21:50)
[2017-11-30] VITALS (20 sets, daily range): BP systolic 119–169; BP diastolic 63–96; PULSE 82–112; RESP 16–36; TEMP 96.5–98; O2SAT 89–96
[2017-11-30] MEDS: SODIUM CHLORIDE 0.9% FLUSH 10 ML FLUSH IV FLUSH PRN ×2 (00:08→06:52)
[2017-11-30] MEDS: methylPREDNISolone SOD SUCC 125 MG/2 ML VIAL IV PUSH SCH ×4 (00:08→21:01)
[2017-11-30 04:43] LABS: HEMATOCRIT 31.8 % (35.0-46.0); HEMOGLOBIN 10.2 GM/DL (11.6-15.3); MEAN CELL VOLUME 90.2 FL (80.0-100.0); MEAN CORPUSCULAR HGB CONC 32.1 % (32.0-36.0); MEAN PLATELET VOLUME 7.3 FL (7.0-11.0); PLATELET COUNT 178 TH/MM3 (150-450); RED BLOOD COUNT 3.53 MIL/MM3 (4.00-5.30); RED CELL DISTRIBUTION WIDTH 21.9 % (11.6-17.2); WHITE BLOOD COUNT 6.9 TH/MM3 (4.0-11.0)
[2017-11-30 04:57] LABS: BICARBONATE 25.5 MEQ/L (21.0-32.0); CALCIUM 8.1 MG/DL (8.5-10.1)
[2017-11-30 05:00] LABS: BANDS 19 % (0-6); LYMPHOCYTES 3 % (9-44); MONOCYTES 1 % (0-8); NEUTROPHIL # MANUAL DIFF 6.6 TH/MM3 (1.8-7.7); POLYS (SEG NEUTROPHILS) 77 % (16-70)
[2017-11-30 05:01] LABS: CREATININE 0.44 MG/DL (0.50-1.00); OVALOCYTES 2+ (NORMAL)
[2017-11-30] MEDS: RESP: ALBUTEROL 2.5 MG/IPRATROPIUM 0.5 MG NEB (SCH) INH ×2 (07:37→14:07)
[2017-11-30] MEDS: SODIUM CHLORIDE 0.9% FLUSH 10 ML FLUSH IV FLUSH SCH ×2 (08:47→21:01)
[2017-11-30] MEDS: PANTOPRAZOLE SOD 40 MG DELAYED RELEASE TAB PO SCH (08:47)
[2017-11-30] MEDS: OXYBUTYNIN CHLORIDE 5 MG TAB PO SCH ×2 (08:48→21:01)
[2017-11-30] MEDS: ASPIRIN 81 MG CHEW TAB CHEW SCH (08:48)
[2017-11-30] MEDS: DILTIAZEM-CD 180 MG CAP ER PO SCH (08:48)
[2017-11-30] MEDS: FOLIC ACID 1 MG TAB PO SCH (08:48)
[2017-11-30] MEDS ORDERED: AZITHROMYCIN 250 MG TAB PO SCH (09:00)
--- NOTE | 2017-11-30 11:07 | ECHRPT ---
Indication: SOB CONCLUSIONS Normal left ventricular size. Wall thickness is normal. The left ventricular systolic function is low normal with an estimated ejection fraction in the rang e of 50- 55%. There was redundancy of the interatrial septum, with borderline criterial for septal aneurysm (benig n finding). The estimated pulmonary arterial pressure is 38 mmHg. A prominent epicardial fat pad is present. BP: / HR: Rhythm: MEASUREMENTS (Male / Female) Normal Values Technical Quality: 2D ECHO LV Diastolic Diameter PLAX 4.6 cm 4.2 - 5.9 / 3.9 - 5.3 cm LV Systolic Diameter PLAX 3.5 cm IVS Diastolic Thickness 0.8 cm 0.6 - 1.0 / 0.6 - 0.9 cm LVPW Diastolic Thickness 0.8 cm 0.6 - 1.0 / 0.6 - 0.9 cm LV Relative Wall Thickness 0.3 RV Internal Dim ED PLAX 2.0 cm LA Systolic Diameter LX 3.0 cm 3.0 - 4.0 / 2.7 - 3.8 cm DOPPLER Mitral E Point Velocity 75.9 cm/s Mitral A Point Velocity 102.0 cm/s Mitral E to A Ratio 0.7 TR Peak Velocity 282.0 cm/s TR Peak Gradient 31.8 mmHg Right Atrial Pressure 5.0 mmHg Pulmonary Artery Systolic Pressu 36.8 mmHg Right Ventricular Systolic Press 36.8 mmHg FINDINGS LEFT VENTRICLE Normal left ventricular size. Wall thickness is normal. The left ventricular systolic function is low normal with an estimated ejection fraction in the rang e of 50- 55%. RIGHT VENTRICLE Normal right ventricular size and systolic function. LEFT ATRIUM The left atrial size is normal. RIGHT ATRIUM The right atrial size is normal. ATRIAL SEPTUM There was redundancy of the interatrial septum, with borderline criterial for septal aneurysm (benig n finding). AORTA The aortic root and proximal ascending aorta are normal in size on limited imaging. MITRAL VALVE Structurally normal mitral valve. No mitral valve stenosis or regurgitation. AORTIC VALVE Trileaflet aortic valve. No aortic valve stenosis or regurgitation. TRICUSPID VALVE The estimated pulmonary arterial pressure is 38 mmHg. PULMONARY VALVE No pulmonary valve regurgitation or stenosis. VESSELS The inferior vena cava is normal in size. PERICARDIUM A prominent epicardial fat pad is present. Eben Cuellar MD, FACC (Electronically Signed) Final Date:30 November 2017 11:05
[2017-11-30] MEDS: cefTRIAXone INJ 1,000 MG in SODIUM CHLORIDE 0.9% INJ 100 ML IV SCH (11:14)
--- NOTE | 2017-11-30 11:52 | HHI.PR ---
Subjective Remarks RN denies any deterioration since last night. Patient herself says she feels much better since admission. She thinks she does need to move around more. says that she was having some tremors in her arms and her whole body before she came in. Patient himself demonstrates this currently and at the very mild tremor noted in both arms at this time. Denies any seizure-like activity or any loss of consciousness at home or currently in the hospital. Objective Vital Signs Date Time Temp Pulse Resp B/P (MAP) Pulse Ox O2 Delivery O2 Flow Rate FiO2 11/30/17 11:00 104 33 135/70 (91) 96 11/30/17 10:00 110 34 124/66 (85) 94 11/30/17 10:00 110 11/30/17 09:00 112 36 145/78 (100) 93 11/30/17 08:15 96 Nasal Cannula 2.00 11/30/17 08:00 105 11/30/17 08:00 97.9 90 17 146/84 (104) 95 11/30/17 07:37 95 Nasal Cannula 2.00 11/30/17 07:00 88 20 159/95 (116) 94 11/30/17 06:00 82 11/30/17 05:01 92 18 165/94 (117) 95 11/30/17 04:01 98.0 84 16 169/75 (106) 94 11/30/17 04:00 88 11/30/17 03:01 84 17 165/80 (108) 94 11/30/17 02:01 92 22 168/83 (111) 92 11/30/17 02:00 90 11/30/17 01:01 84 16 154/79 (104) 93 11/30/17 00:16 97.6 84 17 159/80 (106) 95 11/30/17 00:00 94 11/29/17 23:01 84 17 149/73 (98) 96 11/29/17 22:01 90 22 141/74 (96) 95 11/29/17 22:00 96 11/29/17 21:01 92 19 136/71 (92) 92 11/29/17 20:01 98.0 88 18 143/74 (97) 93 11/29/17 20:00 84 11/29/17 19:36 93 Nasal Cannula 2.00 11/29/17 19:01 84 21 123/64 (83) 95 11/29/17 18:00 98 11/29/17 16:00 94 11/29/17 16:00 98.5 94 31 122/65 (84) 95 11/29/17 14:00 98 11/29/17 14:00 106 29 135/70 (91) 93 11/29/17 13:05 106 11/29/17 13:05 98.7 106 20 124/72 (89) 92 11/29/17 13:00 90 20 121/68 (85) 96 Nasal Cannula 2.00 11/29/17 12:06 99 20 128/70 (89) 96 Nasal Cannula 2.00 I/O 11/29/17 11/29/17 11/29/17 11/30/17 11/30/17 11/30/17 07:00 15:00 23:00 07:00 15:00 23:00 Intake Total 1950 ml 420 ml 200 ml Output Total 450 ml 1200 ml Balance 1950 ml -30 ml -1000 ml Intake Oral 420 ml 200 ml IV Total 1950 ml Output Urine Total 450 ml 1200 ml # Voids 3 # Bowel Movements 0 0 Result Diagram: 11/30/1741911/30/170 Objective Remarks Coarse breath sounds bilaterally with good aeration Very minimally increased labored effort, no conversive dyspnea, no acute distress otherwise, very minimal resting tremor noted in bilateral arms and upper extremities A/P Assessment and Plan (1) Acute on chronic respiratory failure ICD Code: J96.20 - Acute and chronic respiratory failure, unspecified whether with hypoxia or hypercapnia Improving, approaching clinical baseline. Continue home O2 at 2 L. spacing out IV steroids tonight echo showing intact ef at 55% (2) COPD (chronic obstructive pulmonary disease) ICD Code: J44.9 - Chronic obstructive pulmonary disease, unspecified Continue bronchodilators, IV steroids, pulmonary following O2 to wean IV Rocephin and IV azithromycin; obtaining procalcitonin, if neg, will stop abx. transferring to med-surg. Oracio Rivas MD Nov 30, 2017 11:52
[2017-11-30] MEDS: RESP: ACETYLCYSTEINE 10% 10 ML NEB NEB SCH ×2 (14:07→16:00)
[2017-11-30] MEDS: RESP: ALBUTEROL 1.25 MG/3 ML NEB (SCH) NEB ×3 (16:00→23:46)
[2017-11-30] MEDS: ENOXAPARIN SODIUM 40 MG/0.4 ML SYRINGE SQ SCH (17:04)
[2017-11-30] MEDS: NYSTATIN SUSP 500,000 U/5 ML CUP SWISH-SWAL SCH (21:00)
[2017-11-30] MEDS: RESP: ACETYLCYSTEINE 10% 30 ML NEB NEB SCH (21:16)
[2017-12-01] VITALS: BP 139/72; PULSE 100; RESP 22; TEMP 96.7; O2SAT 88
[2017-12-01] MEDS: RESP: ACETYLCYSTEINE 10% 30 ML NEB NEB SCH ×3 (03:17→15:52)
[2017-12-01] MEDS: RESP: ALBUTEROL 1.25 MG/3 ML NEB (SCH) NEB ×4 (03:17→15:52)
[2017-12-01 04:00] VITALS: PULSE 98; O2SAT 87
--- NOTE | 2017-12-01 07:06 | MB ---
cc: FIDEL PARRA M.D. DATE OF CONSULTATION 04/29/2018 REASON FOR CONSULTATION COPD exacerbation. HISTORY OF PRESENT ILLNESS Mrs. Govea is an 82-year-old female with known history of COPD of severe degree and chronic respiratory failure on oxygen therapy, had a URI for the last week or more, became progressively worse despite therapy at home. The patient presents to the emergency room with worsening hypoxemia requiring BiPap therapy, cough, expectoration of clear whitish sputum. No hemoptysis, no fever, no chills. PAST MEDICAL HISTORY 1. COPD. 2. Psoriatic arthritis on chronic steroid therapy. 3. Previous tubal ligation. 4. Achilles' tendon surgery. ALLERGIES SULFA. CODEINE. PRESENT MEDICATIONS 1. Solu-Medrol. 2. Zithromax. 3. Protonix nebulized. 4. Albuterol. 5. Ceftriaxone. 6. Oxygen, now back to nasal cannula off of BiPap therapy. SOCIAL HISTORY Long heavy smoking history. Has not smoked for several years now. FAMILY HISTORY Noncontributory. REVIEW OF SYSTEMS A 12-point review of systems as per HPI and Past History, otherwise negative. PHYSICAL EXAMINATION VITAL SIGNS: Temperature 98, pulse 90, respirations 18, blood pressure 140/80, oxygen saturation 95% on 2 liters oxygen nasal cannula. HEENT: HEENT exam unremarkable. Eyes without icterus. NECK: Without adenopathy or thyroid enlargement. CHEST: A few scattered rhonchi bilaterally. CARDIAC EXAM: PMI distant. S1 and S2 audible. No murmur, no rub. ABDOMEN: Lax. Bowel sounds audible. EXTREMITIES: No clubbing, cyanosis or edema. LABORATORY DATA White count 6.9, hemoglobin 10, hematocrit 31, platelets at 178,000. Sodium 138, potassium 3.3, BUN 11, creatinine 0.4. ABG on 11/29/2017 - pH 7.46, pCO2 36, pO2 of 116 on BiPap therapy with inspired oxygen fraction at 35%. INR is at 1.0. CHEST X-RAY Done upon presentation, suggestive of emphysematous change. IMPRESSION 1. COPD exacerbation. 2. Acute on chronic respiratory failure. PLAN The patient will be maintained on oxygen therapy as needed, steroid therapy continued, antibiotic therapy continued. Activity will be gradually increased. We will change to oral therapy once the patient is able to do so. We will follow the patient's course along with you and, depending on progress, adjust therapy as needed. I do thank you for asking me to partake in Mrs. Govea's care. Sincerely, MD MADDI Marcus/BERENICE /3:00 PM /6:43 AM
[2017-12-01 07:44] VITALS: O2SAT 90
[2017-12-01 08:00] VITALS: BP 140/94; PULSE 91; RESP 20; TEMP 97.1; O2SAT 90
[2017-12-01] MEDS ORDERED: AZITHROMYCIN 250 MG TAB PO SCH (09:00)
[2017-12-01] MEDS: ASPIRIN 81 MG CHEW TAB CHEW SCH (09:42)
[2017-12-01] MEDS: SODIUM CHLORIDE 0.9% FLUSH 10 ML FLUSH IV FLUSH SCH (09:42)
[2017-12-01] MEDS: FOLIC ACID 1 MG TAB PO SCH (09:42)
[2017-12-01] MEDS: DILTIAZEM-CD 180 MG CAP ER PO SCH (09:43)
[2017-12-01] MEDS: OXYBUTYNIN CHLORIDE 5 MG TAB PO SCH (09:43)
[2017-12-01] MEDS: NYSTATIN SUSP 500,000 U/5 ML CUP SWISH-SWAL SCH ×2 (09:43→13:35)
[2017-12-01] MEDS: PANTOPRAZOLE SOD 40 MG DELAYED RELEASE TAB PO SCH (09:43)
[2017-12-01] MEDS: methylPREDNISolone SOD SUCC 125 MG/2 ML VIAL IV PUSH SCH (09:44)
[2017-12-01] MEDS ORDERED: GETGO ROLLING W1 MI1 (10:31)
[2017-12-01 12:00] VITALS: BP 130/60; PULSE 91; RESP 20; TEMP 96.6; O2SAT 92
[2017-12-01] MEDS: cefTRIAXone INJ 1,000 MG in SODIUM CHLORIDE 0.9% INJ 100 ML IV SCH (13:35)
[2017-12-01] MEDS ORDERED: PRED20 PO (14:42)
--- NOTE | 2017-12-01 14:43 | HHI.DCPOC ---
Discharge Care Plan Diagnosis: (1) Acute on chronic respiratory failure (2) Chronic obstructive pulmonary disease with acute exacerbation (3) SOB (shortness of breath) Goals to Promote Your Health * To prevent worsening of your condition and complications * To maintain your health at the optimal level Directions to Meet Your Goals Take your medications as prescribed Follow your dietary instruction Follow activity as directed Keep your appointments as scheduled Take your immunizations and boosters as scheduled If your symptoms worsen call your PCP, if no PCP go to Urgent Care Center or Emergency Room Smoking is Dangerous to Your Health. Avoid second hand smoke Call the 24-hour hour crisis hotline for domestic abuse at Oracio Rivas MD Dec 01, 2017 14:43
[2017-12-01] MEDS ORDERED: CEFD300C PO (14:45)
--- NOTE | 2017-12-01 15:25 | HHI.DS ---
Discharge Summary Admission Date Nov 29, 2017 at 11:18 Discharge Date: Dec 01, 2017 Admitting Diagnosis copd exacerbation, respiratory failure (1) Acute on chronic respiratory failure ICD Code: J96.20 - Acute and chronic respiratory failure, unspecified whether with hypoxia or hypercapnia Status: Acute (2) COPD (chronic obstructive pulmonary disease) ICD Code: J44.9 - Chronic obstructive pulmonary disease, unspecified Status: Acute Procedures none Brief History - From Admission patient is 82-year-old feel with a known history of COPD. She came in with increased work of breathing for the last week. She had associated cough. There is no fever or chills. There are no sick contacts. Patient came to the emergency room for further evaluation after nebulizers were ineffective. She normally has oxygen at home at 2 L. Lately she has been using oxygen 24 hours as well as her nebulizers reactively. In the emergency room she was quite hypoxemic and required bronchodilators as well as BiPAP. Here she has improved with IV steroids. Patient is admitted for respiratory failure due to COPD exacerbation CBC/BMP: 11/30/17 0420 11/30/17 0420 Significant Findings Laboratory Tests Test 11/29/17 09:37 11/29/17 09:55 11/29/17 10:35 11/29/17 14:30 White Blood Count 11.5 TH/MM3 (4.0-11.0) Red Blood Count 3.80 MIL/MM3 (4.00-5.30) Hemoglobin 11.2 GM/DL (11.6-15.3) Hematocrit 33.8 % (35.0-46.0) Red Cell Distribution Width 22.1 % (11.6-17.2) Neutrophils (%) (Auto) 85.7 % (16.0-70.0) Lymphocytes (%) (Auto) 4.8 % (9.0-44.0) Neutrophils # (Auto) 9.8 TH/MM3 (1.8-7.7) Lymphocytes # (Auto) 0.6 TH/MM3 (1.0-4.8) Activated Partial Thromboplast Time 20.8 SEC (24.3-30.1) Random Glucose 122 MG/DL (74-106) Total Protein 6.2 GM/DL (6.4-8.2) Albumin 3.1 GM/DL (3.4-5.0) Troponin I LESS THAN 0.02 NG/ML Arterial Blood pH 7.46 (7.380-7.420) Arterial Blood Partial Pressure CO2 37 mmHG (38-42) Arterial Blood Methemoglobin 2.1 % (0-2) Blood Gas Hemoglobin 10.3 G/DL (12.0-16.0) Test 11/29/17 18:30 11/30/17 04:20 11/30/17 12:05 Urine Glucose (UA) 1000 OR GREATER mg/dL Urine Ketones TRACE mg/dL (NEG) Red Blood Count 3.53 MIL/MM3 (4.00-5.30) Hemoglobin 10.2 GM/DL (11.6-15.3) Hematocrit 31.8 % (35.0-46.0) Red Cell Distribution Width 21.9 % (11.6-17.2) Neutrophils % (Manual) 77 % (16-70) Band Neutrophils % 19 % (0-6) Lymphocytes % 3 % (9-44) Ovalocytes 2+ (NORMAL) Creatinine 0.44 MG/DL (0.50-1.00) Random Glucose 169 MG/DL (74-106) Calcium Level 8.1 MG/DL (8.5-10.1) Potassium Level 3.3 MEQ/L (3.5-5.1) Procalcitonin 0.09 ng/mL (0.00-0.08) PE at Discharge On nasal cannula, sitting up in bed, no acute distress Coarse breath sounds bilaterally with good aeration, unlabored breathing Hospital Course Patient was admitted to the ICU initially on steroids, bipap, and abx. Eventually she was transitioned back down to her home oxygen level at 2 L successfully. Her respiratory distress minimize back down to her home baseline. Blood cultures were negative as well as influenza swab. Patient has been maximal benefit from hospitalization and is clinically stable for discharge. Patient was counseled on the importance of following with a delivery helper and possibly seeking outpatient pulmonary rehabilitation. Pt Condition on Discharge: Stable Discharge Disposition: Discharge Home Discharge Time: <= 30 minutes Discharge Instructions DIET: Follow Instructions for: Heart Healthy Diet Activities you can perform: Weight Bearing as Faizan Other Activity Instructions: use walker Follow up Referrals: PCP Follow-up - 10 Days Pulmonology - 1 Week New Medications: Cefdinir (Cefdinir) 300 Mg Cap 600 MG PO DAILY for Infection, #6 CAP 0 Refills Prednisone (Prednisone) 20 Mg Tab 20 MG PO DIRECTED for copd, #24 TAB 0 Refills Take 60 MG daily x 4 days, then 40 MG x 4 d, then 20 MG daily x 4 d, then 10 mg daily aftewards. Walker Rolling/GetGo (Walker Rolling/GetGo) 1 Mis Mis EA .XX DIRECTED, #1 Continued Medications: Aspirin (Aspirin) 81 Mg Chew 81 MG CHEW DAILY, TAB 0 Refills Budesonide-Formoterol Inh (Symbicort Inh) 80-4.5 Mcg/Act Aero 2 PUFF INH Q12HR for Asthma Management, #1 INHALER 0 Refills Diltiazem ER 24 HR (Cartia Xt) 120 Mg Caper 180 MG PO DAILY, #30 CAP 0 Refills Folic Acid (Folic Acid) 400 Mcg Tab 400 MCG PO DAILY for Nutritional Supplement, TAB 0 Refills Leflunomide (Leflunomide) 20 Mg Tab 20 MG PO DAILY, TAB Methotrexate (Methotrexate) 2.5 Mg Tab 2.5 MG PO Q7D, TAB 0 Refills Pantoprazole (Protonix) 40 Mg Tab 40 MG PO DAILY for Reflux, #30 TAB 0 Refills Discontinued Medications: Azithromycin (Azithromycin) 250 Mg Tab 500 MG PO Q24H for copd, #5 TAB Prednisone (Prednisone) 5 Mg Tab 5 MG PO DAILY, TAB 0 Refills Prednisone (48) 10 mg tab Dose Pack (Prednisone (48) 10 mg tab Dose Pack) 10 Mg Dspk 10 MG PO DIRECTED for Inflammation, #1 DSPK 0 Refills Oracio Rivas MD Dec 01, 2017 15:25
[2017-12-01 16:00] VITALS: BP 133/64; PULSE 79; RESP 20; TEMP 96.4; O2SAT 90
== END 2017-12-01 16:30 | disposition home or self-care (01) | DRG 189 ==
LOC: PHED 09:36 → PHEDA 11:18 → PHICU 12:55 → PH3B 11-30 18:24
PROVIDERS: ADMIT Hospitalist; ATTEND Hospitalist
PROC: 5A09357 Assistance with Respiratory Ventilation, Less than 24 Consecutive Hours, Continuous Positive Airway Pressure (ICD-10-PCS; principal; 2017-11-29)
DX: J96.21 Acute and chronic respiratory failure with hypoxia (principal); J44.1 Chronic obstructive pulmonary disease with (acute) exacerbation; Z99.81 Dependence on supplemental oxygen; J06.9 Acute upper respiratory infection, unspecified; R25.1 Tremor, unspecified; R00.0 Tachycardia, unspecified; L40.50 Arthropathic psoriasis, unspecified; Z79.52 Long term (current) use of systemic steroids; Z87.891 Personal history of nicotine dependence; Z88.2 Allergy status to sulfonamides; Z88.5 Allergy status to narcotic agent
CPT/HCPCS: 36600; 71045; 80048; 80053; 81001; 82550; 82805; 83605; 83735; 83880; 84145; 84484; 85007; 85025; 85027; 85610; 85730; 87040; 87641; 87804; 93005; 93306; 94002; 94640; 94664; 96365; 96367; J0456; J0696; J1650; J2543; J2930; J7030; J7040; J7050; J7608; J7613

== ENCOUNTER 2018-02-01 13:21 | Inpatient (IN) | payer OTHER, MEDICARE ==
[2018-02-01] VITALS (8 sets, daily range): BP systolic 114–138; BP diastolic 58–72; PULSE 99–129; RESP 20–22; TEMP 97.2–99.1; O2SAT 92–97
[~2018-02-01] VITALS: Ht 163.8 cm; Wt 54.0 kg
[~2018-02-01 13:21] MED LIST changes: -AZIT250T3 PO; +CEFD300C PO; +GETGO ROLLING W1 MI1; -PRED10PA2 PO; +PRED20 PO; -PRED5TAB PO
--- NOTE | 2018-02-01 13:30 | PD ---
HPI Chief Complaint: Respiratory Symptoms Time Seen by Provider: 13:29 Travel History International Travel<30 days: No Contact w/Intl Traveler<30days: No Traveled to known affect area: No History of Present Illness HPI 82-year-old female came to the emergency room with history of shortness of breath. Patient has history of significant COPD and requires 2 L of oxygen at night. She says lately she has been using it during the day as well. But the shortness of breath is progressively worsening. This 1 started about 5 days ago. Today she took 2 of her inhalers and did not get any relief when she decided to come to the emergency room. Her last hospitalization was 2 months ago. Patient has not required to be intubated. She has been hospitalized in the ICU however. Patient was looking short of breath that she was talking. Vital signs were relatively stable. No history of fever or chills. No history of chest pain. Her bacteriologist industrial is Dr. Seals. [facility] Past Medical History Narrative Medical List of her past medical, surgical, social and family history is reviewed from the nursing note. Hx Anticoagulant Therapy: No Arthritis: Yes (PSORIATIC ARTHRITIS) Asthma: No Autoimmune Disease: No Blood Disorders: No Anxiety: No Depression: No Heart Rhythm Problems: Yes (RAPID HEART RATE) Cancer: Yes Cardiovascular Problems: Yes Chemotherapy: No Congestive Heart Failure: No COPD: Yes (2LPM NC HS PRN) Cerebrovascular Accident: No Coronary Artery Disease: No Diabetes: No Diminished Hearing: No Endocrine: No Gastrointestinal Disorders: Yes (ESOPHAGEAL STRICTURES) Genitourinary: No Headaches: No Hypertension: No Immune Disorder: No Implanted Vascular Access Dvce: Yes Musculoskeletal: Yes Neurologic: No Psychiatric: No Reproductive: No Respiratory: Yes (COPD) Integumentary: Yes (shingles, psoriatic arthritis ) Immunizations Current: Yes Migraines: No Radiation Therapy: Yes Seizures: No Shingles: Yes (10/2015) Thyroid Disease: No Menopausal: Yes Tubal Ligation: Yes Past Surgical History Abdominal Surgery: No AICD: No Arteriovenous Shunt: No Cardiac Surgery: No Ear Surgery: No Endocrine Surgery: No Eye Surgery: No Genitourinary Surgery: No Gynecologic Surgery: Yes (Tubal ligation) Hysterectomy: No Insulin Pump: No Joint Replacement: No Neurologic Surgery: No Oral Surgery: No Pacemaker: No Thoracic Surgery: No Other Surgery: Yes (SEVERED ACHILLES TENDON - CASTED) Social History Alcohol Use: Yes (2 drinks each night) Tobacco Use: No (quit in her 50's) Substance Use: No Allergies-Medications (Allergen,Severity, Reaction): Coded Allergies: Sulfa (Sulfonamide Antibiotics) (Verified Allergy, Unknown, Doesn't remember, 02/01/18) codeine (Verified Allergy, Unknown, Doesn't remember, 02/01/18) Comments List of her allergies reviewed from the nursing note. Reported Meds & Prescriptions Reported Meds & Active Scripts Active Walker Rolling/GetGo (Device) 1 Mis Mis Ea .XX DIRECTED Reported Symbicort Inh (Budesonide/Formoterol Fumarate) 80-4.5 Mcg/Act Aero 2 Puff INH Q12HR Aspirin 81 Mg Chew 81 Mg CHEW DAILY Cartia Xt (Diltiazem ER 24 HR) 120 Mg Caper 180 Mg PO DAILY Methotrexate 2.5 Mg Tab 2.5 Mg PO Q7D Leflunomide 20 Mg Tab 20 Mg PO DAILY Folic Acid 400 Mcg Tab 400 Mcg PO DAILY Protonix (Pantoprazole Sodium) 40 Mg Tab 40 Mg PO DAILY Narrative Medication List of her home medications reviewed from the nursing note. Review of Systems Except as stated in HPI: all other systems reviewed are Neg Respiratory: Positive: Shortness of Breath Physical Exam Narrative GENERAL: Awake, alert, anxious, moderate respiratory distress SKIN: Focused skin assessment warm/dry. HEAD: Atraumatic. Normocephalic. EYES: Pupils equal and round. No scleral icterus. No injection or drainage. ENT: No nasal bleeding or discharge. Mucous membranes pink and moist. NECK: Trachea midline. No JVD. CARDIOVASCULAR: Regular rate and rhythm. No murmur appreciated. RESPIRATORY: Moderate respiratory distress, tachypnea, using accessory muscles for respirations, diminished air entry bilaterally GASTROINTESTINAL: Abdomen soft, non-tender, nondistended. Hepatic and splenic margins not palpable. MUSCULOSKELETAL: No obvious deformities. No clubbing. No cyanosis. No edema. NEUROLOGICAL: Awake and alert. No obvious cranial nerve deficits. Motor grossly within normal limits. Normal speech. PSYCHIATRIC: Appropriate mood and affect; insight and judgment normal. Data Data Last Documented VS Vital Signs Date Time Temp Pulse Resp B/P (MAP) Pulse Ox O2 Delivery O2 Flow Rate FiO2 02/01/18 14:42 129 20 138/71 (93) 94 Nasal Cannula 2.00 02/01/18 13:45 99.1 Orders Orders Complete Blood Count With Diff (02/01/18 13:36) Basic Metabolic Panel (Bmp) (02/01/18 13:36) B-Type Natriuretic Peptide (02/01/18 13:36) Prothrombin Time / Inr (Pt) (02/01/18 13:36) Troponin I (02/01/18 13:36) Iv Access Insert/Monitor (02/01/18 13:36) Electrocardiogram (02/01/18 13:36) Ecg Monitoring (02/01/18 13:36) Oximetry (02/01/18 13:36) Oxygen Administration (02/01/18 13:36) Chest, Single Ap (02/01/18 13:36) Sodium Chloride 0.9% Flush (Ns Flush) (02/01/18 13:45) Methylprednisolone So Succ Inj (Solumedr (02/01/18 13:45) Albuterol-Ipratropium Neb (Duoneb Neb) (02/01/18 13:45) Albuterol Neb (Albuterol Neb) (02/01/18 14:45) Admit To Inpatient (02/01/18 ) Vital Signs (Adult) JUAN MANUEL.Q4H (02/01/18 15:53) Activity Oob With Assistance (02/01/18 15:53) Resp Oxygen Andrew C Titrat 1-4 L (02/01/18 ) Inpatient Certification (02/01/18 ) Methylprednisolone So Succ Inj (Solumedr (02/01/18 22:00) Albuterol-Ipratropium Neb (Duoneb Neb) (02/01/18 20:00) Admit Order (Ed Use Only) (02/01/18 15:56) Labs Laboratory Tests Test 02/01/18 13:45 White Blood Count 5.8 TH/MM3 Red Blood Count 4.21 MIL/MM3 Hemoglobin 11.3 GM/DL Hematocrit 36.7 % Mean Corpuscular Volume 87.2 FL Mean Corpuscular Hemoglobin 26.9 PG Mean Corpuscular Hemoglobin Concent 30.8 % Red Cell Distribution Width 22.6 % Platelet Count 293 TH/MM3 Mean Platelet Volume 7.4 FL Neutrophils (%) (Auto) 73.1 % Lymphocytes (%) (Auto) 9.7 % Monocytes (%) (Auto) 15.9 % Eosinophils (%) (Auto) 0.3 % Basophils (%) (Auto) 1.0 % Neutrophils # (Auto) 4.2 TH/MM3 Lymphocytes # (Auto) 0.6 TH/MM3 Monocytes # (Auto) 0.9 TH/MM3 Eosinophils # (Auto) 0.0 TH/MM3 Basophils # (Auto) 0.1 TH/MM3 CBC Comment DIFF FINAL Differential Comment Prothrombin Time 10.0 SEC Prothromb Time International Ratio 1.0 RATIO Blood Urea Nitrogen 9 MG/DL Creatinine 0.67 MG/DL Random Glucose 143 MG/DL Calcium Level 8.3 MG/DL Sodium Level 138 MEQ/L Potassium Level 3.3 MEQ/L Chloride Level 103 MEQ/L Carbon Dioxide Level 25.6 MEQ/L Anion Gap 9 MEQ/L Estimat Glomerular Filtration Rate 85 ML/MIN Troponin I 0.02 NG/ML B-Type Natriuretic Peptide 123 PG/ML MDM Medical Decision Making Medical Screen Exam Complete: Yes Emergency Medical Condition: Yes Medical Record Reviewed: Yes Interpretation(s) Twelve-lead EKG was reviewed by me. There is sinus tachycardia with PACs. Normal axis, nonspecific ST-T wave changes. Heart rate of 134 bpm. Differential Diagnosis COPD exacerbation, CHF, pneumonia Narrative Course 3:52 PM blood test results are back and within acceptable limits. Chest x-ray shows hyperinflation of the lungs. She was given 3 DuoNeb's upon arrival with IV Solu-Medrol. I went back and reassessed her and she said she feels little better but air movement was still pretty poor. Oxygen saturation was 93% on 2 L of oxygen. I decided to give her 2 more albuterol nebulizers after which I asked the nurse to ambulate her and see how she does. Nurse came back to me and let me know that she had walked less than 20 feet and got extremely short of breath and became pale. Based on this I have decided to keep her in the hospital. I discussed this with the patient and she is agreeable to the plan. Critical Care Narrative Aggregate critical care time was 30 minutes. Time to perform other separately billable procedures was not included in the critical care time. My time did not include minutes spent treating any other patients simultaneously or on activities that did not directly contribute to the patient's treatment. The services I provided to this patient were to treat and/or prevent clinically significant deterioration that could result in: Respiratory distress, acute COPD exacerbation, multiple bronchodilators I provided critical care services requiring my management, as noted below: Chart data review, documentation time, medication orders and management, vital sign assessments/reviewing monitor data, ordering and reviewing lab tests, ordering and interpreting/reviewing x-rays and diagnostic studies, care of the patient and discussion of the patient with the admitting physicians. Procedures EKG Prior to Arrival: No Diagnosis Primary Impression: Respiratory distress Additional Impression: Acute bronchitis with chronic obstructive pulmonary disease (COPD) Admitting Information Admitting Physician Requests: Admit Scripts Prednisone (Prednisone) 20 Mg Tab 20 MG PO DAILY for Inflammation, #3 TAB 0 Refills Prov: Dez Noonan MD 02/02/18 Lactobacillus Acidophilus (Lactobacillus Acidophilus) 1 Billion Cell Tab 1 TAB PO TIDAC for Nutritional Supplement, #30 TAB 0 Refills Prov: Dez Noonan MD 02/02/18 Azithromycin (Azithromycin) 250 Mg Tab 250 MG PO DAILY for Infection, #4 TAB 0 Refills Prov: Dez Noonan MD 02/02/18 Bill Trinidad MD Feb 01, 2018 13:30
[2018-02-01] MEDS ORDERED: methylPREDNISolone SOD SUCC 125 MG/2 ML VIAL IV PUSH ONE (13:45)
[2018-02-01] MEDS ORDERED: SODIUM CHLORIDE 0.9% FLUSH 10 ML FLUSH IVF PRN (13:45)
[2018-02-01] MEDS: RESP: ALBUTEROL 2.5 MG/IPRATROPIUM 0.5 MG NEB (SCH) INH ×2 (13:48→13:53)
[2018-02-01 13:53] LABS: AUTOMATED NEUTROPHIL # 4.2 TH/MM3 (1.8-7.7); BASOPHIL # 0.1 TH/MM3 (0-0.2); EOSINOPHIL % 0.3 % (0.0-4.0); HEMATOCRIT 36.7 % (35.0-46.0); HEMOGLOBIN 11.3 GM/DL (11.6-15.3); LYMPH % 9.7 % (9.0-44.0); LYMPHOCYTE # 0.6 TH/MM3 (1.0-4.8); MEAN CELL VOLUME 87.2 FL (80.0-100.0); MEAN CORPUSCULAR HEMOGLOBIN 26.9 PG (27.0-34.0); MEAN CORPUSCULAR HGB CONC 30.8 % (32.0-36.0); MEAN PLATELET VOLUME 7.4 FL (7.0-11.0); MONO % 15.9 % (0.0-8.0); MONOCYTE # 0.9 TH/MM3 (0-0.9); NEUT % 73.1 % (16.0-70.0); PLATELET COUNT 293 TH/MM3 (150-450); RED BLOOD COUNT 4.21 MIL/MM3 (4.00-5.30); RED CELL DISTRIBUTION WIDTH 22.6 % (11.6-17.2); WHITE BLOOD COUNT 5.8 TH/MM3 (4.0-11.0)
[2018-02-01 14:04] LABS: BICARBONATE 25.6 MEQ/L (21.0-32.0); CALCIUM 8.3 MG/DL (8.5-10.1)
[2018-02-01 14:08] LABS: CREATININE 0.67 MG/DL (0.50-1.00)
[2018-02-01 14:12] LABS: TROPONIN I 0.02 NG/ML (0.02-0.05)
--- NOTE | 2018-02-01 14:17 | RADRPT ---
EXAM DATE/TIME: 02/01/2018 13:42 [place] COMPARISON: CHEST SINGLE AP, November 29, 2017, 10:07. INDICATIONS : Short of breath sinec Monday. MEDICAL HISTORY : Chronic obstructive pulmonary disease. SURGICAL HISTORY : None. ENCOUNTER: Initial ACUITY: 4 - 6 days PAIN SCORE: 0/10 LOCATION: Bilateral chest FINDINGS: No new focal pleural or parenchymal opacities. Biapical emphysematous changes. The cardiomediastinal contours are unremarkable. Osseous structures are intact. CONCLUSION: 1. No acute cardiopulmonary disease. Elton Oliver MD on February 01, 2018 at 14:00 Board Certified Radiologist. This report was verified electronically.
[2018-02-01] MEDS: RESP: ALBUTEROL 2.5 MG/3 ML NEB (SCH) INH ×2 (14:53→14:54)
--- NOTE | 2018-02-01 16:39 | HHI.HP ---
[facility]ician Roscoe Burciaga MD Admission Diagnosis Respiratory distress, acute COPD exacerbation Diagnoses: Chief Complaint: Shortness of breath Travel History International Travel<30 Days: No Contact w/Intl Traveler <30 Da: No Traveled to Known Affected Are: No History of Present Illness 82-year-old white female being admitted for acute COPD exacerbation Patient was in her usual state of health until 4 days ago when she began experiencing gradual onset of worsening shortness of breath. Denies having any matias chest pain, cyanosis, or productive cough. Reports that as the days went by her dyspnea worsened and was exacerbated with exertion. She says she took her home rescue inhaler to no avail. Says she has been compliant with her Spiriva and includes elliptical controller inhaler medications. Denies having any fevers or chills. Reports feeling weak overall. Patient says normally she wears 2 L at night but now is wearing it during the day due to the shortness of breath. In the emergency room she had a chest x-ray done which I independently reviewed which was clear. Discussed case with emergency room physician, gave 3 rounds of DuoNeb treatments with virtually no significant improvement in air movement. Past Medical History Urinary incontinence "Rapid heart rate but not A. fib " COPD Psoriatic arthritis Past Surgical History Tubal ligation Achilles heel surgery Reported Medications Reviewed in the EMR, also takes ditropan for bladder instability Allergies: Coded Allergies: Sulfa (Sulfonamide Antibiotics) (Unverified Allergy, Unknown, Doesn't remember, 07/08/17) codeine (Unverified Allergy, Unknown, Doesn't remember, 07/08/17) Family History Mother at 83, father from stomach cancer but wasn't alcoholic Social History Patient has quit tobacco over 30 years ago but has an [id number] history Review of Systems Except as stated in HPI: all other systems reviewed are Neg Past Family Social History Allergies: Coded Allergies: Sulfa (Sulfonamide Antibiotics) (Verified Allergy, Unknown, Doesn't remember, 02/01/18) codeine (Verified Allergy, Unknown, Doesn't remember, 02/01/18) Physical Exam Vital Signs Vital Signs Date Time Temp Pulse Resp B/P (MAP) Pulse Ox O2 Delivery O2 Flow Rate FiO2 02/01/18 16:03 120 20 132/71 (91) 93 Nasal Cannula 2.00 02/01/18 14:42 129 20 138/71 (93) 94 Nasal Cannula 2.00 02/01/18 13:45 96 Nasal Cannula 2.00 02/01/18 13:45 99.1 127 20 135/72 (93) 96 Nasal Cannula 2.00 02/01/18 13:40 Nasal Cannula 2.00 02/01/18 13:40 20 02/01/18 13:40 95 Nasal Cannula 2.00 02/01/18 13:24 99.1 122 22 131/66 (87) 92 Physical Exam VS: afebrile GENERAL: Lying in bed, mild conversive dyspnea, elderly white female SKIN: Warm and dry. EYES: No scleral icterus. No injection or drainage. ENT: No nasal bleeding or discharge. Mucous membranes pink and moist. CARDIOVASCULAR: Regular rate and rhythm. no murmurs RESPIRATORY: No accessory muscle use. Clear to auscultation. Breath sounds equal bilaterally. GASTROINTESTINAL: Abdomen soft, non-tender, nondistended. Extremities: No clubbing, cyanosis, or edema. No obvious deformities. MUSCULOSKELETAL: adequate muscle bulk and tone for age and habitus NEUROLOGICAL: Awake and alert. No obvious cranial nerve deficits. No facial droop nor slurred speech noted. PSYCHIATRIC: Appropriate mood and affect; insight and judgment normal. Laboratory Laboratory Tests Test 02/01/18 13:45 White Blood Count 5.8 Red Blood Count 4.21 Hemoglobin 11.3 Hematocrit 36.7 Mean Corpuscular Volume 87.2 Mean Corpuscular Hemoglobin 26.9 Mean Corpuscular Hemoglobin Concent 30.8 Red Cell Distribution Width 22.6 Platelet Count 293 Mean Platelet Volume 7.4 Neutrophils (%) (Auto) 73.1 Lymphocytes (%) (Auto) 9.7 Monocytes (%) (Auto) 15.9 Eosinophils (%) (Auto) 0.3 Basophils (%) (Auto) 1.0 Neutrophils # (Auto) 4.2 Lymphocytes # (Auto) 0.6 Monocytes # (Auto) 0.9 Eosinophils # (Auto) 0.0 Basophils # (Auto) 0.1 CBC Comment DIFF FINAL Differential Comment Prothrombin Time 10.0 Prothromb Time International Ratio 1.0 Blood Urea Nitrogen 9 Creatinine 0.67 Random Glucose 143 Calcium Level 8.3 Sodium Level 138 Potassium Level 3.3 Chloride Level 103 Carbon Dioxide Level 25.6 Anion Gap 9 Estimat Glomerular Filtration Rate 85 Troponin I 0.02 B-Type Natriuretic Peptide 123 Result Diagram: 02/01/18 1345 02/01/18 1345 Imaging Last Impressions Chest X-Ray 02/01/18 1336 Signed Impressions: Service Date/Time: January 13:42 - CONCLUSION: 1. No acute cardiopulmonary disease. MD Elizabeth Gilbert VTE Risk Assessment Elizabeth VTE Risk Assessment: Mod/High Risk (score >= 2) Caprini Risk Assessment Model Point Value = 1 Point Value = 2 Point Value = 3 Point Value = 5 Age 41-60 Minor surgery BMI > 25 kg/m2 Swollen legs Varicose veins or History of unexplained or recurrent spontaneous Oral contraceptives or hormone replacement Sepsis (< 1 month) Serious lung disease, including pneumonia (< 1 month) Abnormal pulmonary function Acute myocardial infarction Congestive heart failure (< 1 month) History of inflammatory bowel disease Medical patient at bed rest Age 61-74 Arthroscopic surgery Major open surgery (> 45 min) Laparoscopic surgery (> 45 min) Malignancy Confined to bed (> 72 hours) Immobilizing plaster cast Central venous access Age >= 75 History of VTE Family history of VTE Factor V Leiden Prothrombin [id number] Lupus anticoagulant Anticardiolipin antibodies Elevated serum homocysteine Heparin-induced thrombocytopenia Other congenital or acquired thrombophilia Stroke (< 1 month) Elective arthroplasty Hip, pelvis, or leg fracture Acute spinal cord injury (< 1 month) Prophylaxis Regimen Total Risk Factor Score Risk Level Prophylaxis Regimen 0-1 Low Early ambulation 2 Moderate Order ONE of the following: *Sequential Compression Device (SCD) *Heparin 5000 units SQ BID 3-4 Higher Order ONE of the following medications: *Heparin 5000 units SQ TID *Enoxaparin/Lovenox 40 mg SQ daily (WT < 150 kg, CrCl > 30 mL/min) *Enoxaparin/Lovenox 30 mg SQ daily (WT < 150 kg, CrCl > 10-29 mL/min) *Enoxaparin/Lovenox 30 mg SQ BID (WT < 150 kg, CrCl > 30 mL/min) AND/OR *Sequential Compression Device (SCD) 5 or more Highest Order ONE of the following medications: *Heparin 5000 units SQ TID (Preferred with Epidurals) *Enoxaparin/Lovenox 40 mg SQ daily (WT < 150 kg, CrCl > 30 mL/min) *Enoxaparin/Lovenox 30 mg SQ daily (WT < 150 kg, CrCl > 10-29 mL/min) *Enoxaparin/Lovenox 30 mg SQ BID (WT < 150 kg, CrCl > 30 mL/min) AND *Sequential Compression Device (SCD) Assessment and Plan Assessment and Plan 82-year-old white female being admitted for acute COPD exacerbation Acute COPD exacerbation -Given Solu-Medrol in ER, will continue high-dose Solu-Medrol for another 24 hours given the patient's severe COPD -Continue duo nebs, albuterol as needed -Azithromycin tachycardia -will wait for rate to slow down w/ home Cardizem and see if is truly afib, if so will benefit from novel oral anticoagulant upon discharge given her kenrick' svasc is 2 Lovenox Physician Certification 2 Midnight Certification Type: Admission for Inpatient Services Order for Inpatient Services The services are ordered in accordance with Medicare regulations or non- Medicare payer requirements, as applicable. In the case of services not specified as inpatient-only, they are appropriately provided as inpatient services in accordance with the 2-midnight benchmark. Estimated LOS (days): 3 3 days is the estimated time the patient will need to remain in the hospital, assuming treatment plan goals are met and no additional complications. Post-Hospital Plan: Home Oracio Rivas MD Feb 01, 2018 16:39
[2018-02-01] MEDS ORDERED: AZITHROMYCIN INJ 500 MG in SODIUM CHLOR 0.9% 250 ML INJ 250 ML IV SCH (17:00)
[2018-02-01] MEDS ORDERED: ENOXAPARIN SODIUM 30 MG/0.3 ML SYRINGE SQ SCH (17:00)
[2018-02-01] MEDS: RESP: ALBUTEROL 2.5 MG/IPRATROPIUM 0.5 MG NEB (SCH) NEB (20:00)
[2018-02-01] MEDS: BUDESONIDE-FORMOTEROL 80/4.5 MCG INHALER INH SCH (21:00)
[2018-02-01] MEDS: methylPREDNISolone SOD SUCC 125 MG/2 ML VIAL IV PUSH SCH (21:46)
[2018-02-02] VITALS: BP 126/73; PULSE 83; RESP 20; TEMP 96; O2SAT 96
[2018-02-02] MEDS: methylPREDNISolone SOD SUCC 125 MG/2 ML VIAL IV PUSH SCH (05:46)
[2018-02-02] MEDS: RESP: ALBUTEROL 2.5 MG/IPRATROPIUM 0.5 MG NEB (SCH) NEB (07:15)
[2018-02-02 07:17] VITALS: O2SAT 96
[2018-02-02 08:00] VITALS: BP 113/70; PULSE 87; RESP 18; TEMP 96.1; O2SAT 95
[2018-02-02] MEDS ORDERED: POTASSIUM CHLORIDE 10 MEQ CONTROLLED RELEASE TAB PO ONE (09:00)
[2018-02-02] MEDS ORDERED: LEFLUNOMIDE 20 MG PO SCH (09:00)
[2018-02-02] MEDS ORDERED: DILTIAZEM-CD 180 MG CAP ER PO SCH (09:00)
[2018-02-02] MEDS: BUDESONIDE-FORMOTEROL 80/4.5 MCG INHALER INH SCH (09:11)
--- NOTE | 2018-02-02 10:50 | HHI.FF ---
Face to Face Verification Diagnosis: (1) Acute bronchitis with chronic obstructive pulmonary disease (COPD) (2) Respiratory distress (3) Chronic obstructive pulmonary disease with acute exacerbation (4) SOB (shortness of breath) (5) COPD (chronic obstructive pulmonary disease) (6) Acute on chronic respiratory failure Home Health Nursing Order: Oxygen administration education Nursing assessment with vital signs I have seen patient Hattie Govea on 02/02/18. My clinical findings support the need for the requested home health care services because: Ltd mobility - disease progression Patient has SOB Deconditioned w/ increased weakness Limited ability to care for self I certify that my clinical findings support that this patient is homebound because: Hx COPD- exertion dyspnea/weakness Unsteady gait/balance Unsafe to leave home unassisted Unable to use public transportation Dez Noonan MD Feb 02, 2018 10:50
[2018-02-02] MEDS ORDERED: PRED20 PO (10:51)
[2018-02-02] MEDS ORDERED: AZIT250T3 PO (10:51)
[2018-02-02] MEDS ORDERED: LACTTAB8 PO (10:51)
--- NOTE | 2018-02-02 11:48 | HHI.FF ---
Face to Face Verification Diagnosis: (1) Acute bronchitis with chronic obstructive pulmonary disease (COPD) (2) COPD (chronic obstructive pulmonary disease) (3) SOB (shortness of breath) (4) Chronic obstructive pulmonary disease with acute exacerbation (5) Acute on chronic respiratory failure Physical Therapy Order: Evaluate and Treat, Improve ambulation, Strength and gait training Home Health Nursing Order: Oxygen administration education Nursing assessment with vital signs I have seen patient Hattie Govea on 02/02/18. My clinical findings support the need for the requested home health care services because: Ltd mobility - disease progression Patient has SOB Deconditioned w/ increased weakness Limited ability to care for self I certify that my clinical findings support that this patient is homebound because: Hx COPD- exertion dyspnea/weakness Unsteady gait/balance Unsafe to leave home unassisted Unable to use public transportation Dez Noonan MD Feb 02, 2018 11:48
--- NOTE | 2018-02-02 11:50 | HHI.DS ---
Discharge Summary Admission Date Feb 01, 2018 at 15:57 Discharge Date: Feb 02, 2018 Admitting Diagnosis Respiratory distress, acute COPD exacerbation (1) Acute on chronic respiratory failure ICD Code: J96.20 - Acute and chronic respiratory failure, unspecified whether with hypoxia or hypercapnia Diagnosis: Principal Status: Acute (2) Chronic obstructive pulmonary disease with acute exacerbation ICD Code: J44.1 - Chronic obstructive pulmonary disease with (acute) exacerbation Diagnosis: Principal Status: Acute (3) SOB (shortness of breath) ICD Code: R06.02 - Shortness of breath Diagnosis: Principal (4) COPD (chronic obstructive pulmonary disease) ICD Code: J44.9 - Chronic obstructive pulmonary disease, unspecified Diagnosis: Principal Status: Acute (5) Acute bronchitis with chronic obstructive pulmonary disease (COPD) ICD Code: J44.0 - Chronic obstructive pulmonary disease with acute lower respiratory infection; J20.9 - Acute bronchitis, unspecified Diagnosis: Principal Status: Acute (6) Respiratory distress ICD Code: R06.03 - Acute respiratory distress Diagnosis: Principal Status: Acute Procedures None Brief History - From Admission 82-year-old white female being admitted for acute COPD exacerbation Patient was in her usual state of health until 4 days ago when she began experiencing gradual onset of worsening shortness of breath. Denies having any matias chest pain, cyanosis, or productive cough. Reports that as the days went by her dyspnea worsened and was exacerbated with exertion. She says she took her home rescue inhaler to no avail. Says she has been compliant with her Spiriva and includes elliptical controller inhaler medications. Denies having any fevers or chills. Reports feeling weak overall. Patient says normally she wears 2 L at night but now is wearing it during the day due to the shortness of breath. In the emergency room she had a chest x-ray done which I independently reviewed which was clear. Discussed case with emergency room physician, gave 3 rounds of DuoNeb treatments with virtually no significant improvement in air movement. Past Medical History Urinary incontinence "Rapid heart rate but not A. fib " COPD Psoriatic arthritis Past Surgical History Tubal ligation Achilles heel surgery Reported Medications Reviewed in the EMR, also takes ditropan for bladder instability Allergies: Coded Allergies: Sulfa (Sulfonamide Antibiotics) (Unverified Allergy, Unknown, Doesn't remember, 07/08/17) codeine (Unverified Allergy, Unknown, Doesn't remember, 07/08/17) Family History Mother at 83, father from stomach cancer but wasn't alcoholic Social History Patient has quit tobacco over 30 years ago but has an 72-ywka-wkox history CBC/BMP: 02/01/18 1345 02/01/18 1345 Significant Findings Laboratory Tests Test 02/01/18 13:45 Hemoglobin 11.3 GM/DL (11.6-15.3) Mean Corpuscular Hemoglobin 26.9 PG (27.0-34.0) Mean Corpuscular Hemoglobin Concent 30.8 % (32.0-36.0) Red Cell Distribution Width 22.6 % (11.6-17.2) Neutrophils (%) (Auto) 73.1 % (16.0-70.0) Monocytes (%) (Auto) 15.9 % (0.0-8.0) Lymphocytes # (Auto) 0.6 TH/MM3 (1.0-4.8) Random Glucose 143 MG/DL (74-106) Calcium Level 8.3 MG/DL (8.5-10.1) Potassium Level 3.3 MEQ/L (3.5-5.1) Estimat Glomerular Filtration Rate 85 ML/MIN (>89) B-Type Natriuretic Peptide 123 PG/ML (0-100) Hospital Course Mrs. Govea is an 82-year-old female she came in the hospital secondary to COPD exacerbation. She also had A. fib RVR at time of admit. No pneumonia. May have been early bronchitis. With azithromycin and steroids she has returned to baseline. She is ambulated with physical therapy today and did well. She is on her baseline diltiazem treatment with no recurrence of A. fib RVR. A. fib RVR thought to be secondary to her COPD exacerbation and dyspnea. She will be discharged on antibiotics and a steroid taper. Medically clear and stable for discharge home today. Pt Condition on Discharge: Stable Discharge Disposition: Disch w/ Home Health Serv Discharge Time: <= 30 minutes Discharge Instructions DIET: Follow Instructions for: As Tolerated, No Restrictions Activities you can perform: Regular-No Restrictions Follow up Referrals: PCP Follow-up - 2 Weeks PCP Follow-up New Medications: Azithromycin (Azithromycin) 250 Mg Tab 250 MG PO DAILY for Infection, #4 TAB 0 Refills Lactobacillus Acidophilus (Lactobacillus Acidophilus) 1 Billion Cell Tab 1 TAB PO TIDAC for Nutritional Supplement, #30 TAB 0 Refills Prednisone (Prednisone) 20 Mg Tab 20 MG PO DAILY for Inflammation, #3 TAB 0 Refills Continued Medications: Aspirin (Aspirin) 81 Mg Chew 81 MG CHEW DAILY, TAB 0 Refills Budesonide-Formoterol Inh (Symbicort Inh) 80-4.5 Mcg/Act Aero 2 PUFF INH Q12HR for Asthma Management, #1 INHALER 0 Refills Diltiazem ER 24 HR (Cartia Xt) 120 Mg Caper 180 MG PO DAILY, #30 CAP 0 Refills Folic Acid (Folic Acid) 400 Mcg Tab 400 MCG PO DAILY for Nutritional Supplement, TAB 0 Refills Leflunomide (Leflunomide) 20 Mg Tab 20 MG PO DAILY, TAB Methotrexate (Methotrexate) 2.5 Mg Tab 2.5 MG PO Q7D, TAB 0 Refills Pantoprazole (Protonix) 40 Mg Tab 40 MG PO DAILY for Reflux, #30 TAB 0 Refills Dez Noonan MD Feb 02, 2018 11:50
[2018-02-02 12:00] VITALS: BP 107/68; PULSE 87; RESP 18; TEMP 96.8; O2SAT 95
--- NOTE | 2018-02-03 11:25 | EKG ---
Date Performed: 02/01/2018 Time Performed: 13:38:44 PTAGE: 82 years EKG: Multifocal atrial tachycardia Nonspecific ST-T abnormality Compared to previous tracing, mu ltifocal atrial tachycardia is new. ABNORMAL RHYTHM ECG PREVIOUS TRACING : 11/29/2017 09.41 DOCTOR: Henri Wakefield Interpretating Date/Time 02/03/2018 11:25:14
== END 2018-02-02 13:47 | disposition home health service (06) | DRG 191 ==
LOC: PHED 13:21 → PHEDA 15:57 → PH3B 19:43
PROVIDERS: ADMIT Hospitalist; ATTEND Hospitalist
DX: J44.1 Chronic obstructive pulmonary disease with (acute) exacerbation (principal); J96.10 Chronic respiratory failure, unspecified whether with hypoxia or hypercapnia; Z99.81 Dependence on supplemental oxygen; I48.91 Unspecified atrial fibrillation; J20.9 Acute bronchitis, unspecified; J44.0 Chronic obstructive pulmonary disease with (acute) lower respiratory infection; L40.50 Arthropathic psoriasis, unspecified; R32 Unspecified urinary incontinence; Z87.891 Personal history of nicotine dependence; Z88.2 Allergy status to sulfonamides; Z88.5 Allergy status to narcotic agent
CPT/HCPCS: 71045; 80048; 83880; 84484; 85025; 85610; 93005; 94640; 94664; 96374; J0456; J1650; J2930; J7050; J7613

== ENCOUNTER 2018-02-05 10:30 | Inpatient (IN) | payer OTHER, MEDICARE ==
[~2018-02-05] VITALS: Ht 162.6 cm; Wt 54.3 kg
[2018-02-05] VITALS (23 sets, daily range): BP systolic 143–189; BP diastolic 67–90; PULSE 84–102; RESP 14–24; TEMP 98–98.3; O2SAT 94–98
[~2018-02-05 10:30] MED LIST changes: +AZIT250T3 PO; -CEFD300C PO; +LACTTAB8 PO
[2018-02-05] MEDS ORDERED: FLUO20CA12 PO (10:48)
[2018-02-05] MEDS ORDERED: DILT240C44 PO (10:48)
[2018-02-05] MEDS ORDERED: PRED10 PO (10:48)
[2018-02-05] MEDS ORDERED: VESI5TAB2 PO (10:48)
--- NOTE | 2018-02-05 11:06 | PD ---
HPI Chief Complaint: Respiratory Distress Time Seen by Provider: 10:58 Travel History International Travel<30 days: No Contact w/Intl Traveler<30days: No Traveled to known affect area: No History of Present Illness HPI This 82-year-old female is complaining of shortness of breath. She has a history of COPD. She was admitted to the hospital recently and just went home last Monday. She was sent home on Zithromax and 10 mg of prednisone daily. She is on home oxygen all the time. She has had increasing shortness of breath today. She has been coughing up some phlegm. PFSH Past Medical History Hx Anticoagulant Therapy: No Arthritis: Yes (PSORIATIC ARTHRITIS) Asthma: No Autoimmune Disease: No Blood Disorders: No Anxiety: Yes Depression: Yes Heart Rhythm Problems: Yes (RAPID HEART RATE) Cancer: Yes (basal cell) Cardiovascular Problems: Yes Chemotherapy: No Congestive Heart Failure: No COPD: Yes (2LPM NC ) Cerebrovascular Accident: No Coronary Artery Disease: No Diabetes: No Diminished Hearing: No Endocrine: No Gastrointestinal Disorders: Yes (ESOPHAGEAL STRICTURES) Genitourinary: No Headaches: No Hypertension: No Immune Disorder: No Implanted Vascular Access Dvce: Yes Musculoskeletal: Yes Neurologic: No Psychiatric: No Reproductive: No Respiratory: Yes (COPD) Integumentary: Yes (shingles, psoriatic arthritis ) Immunizations Current: Yes Migraines: No Radiation Therapy: No Seizures: No Shingles: Yes (10/2015) Thyroid Disease: No Influenza Vaccination: Yes ?: Not Menopausal: Yes Tubal Ligation: Yes Past Surgical History Abdominal Surgery: No AICD: No Arteriovenous Shunt: No Cardiac Surgery: No Ear Surgery: No Endocrine Surgery: No Eye Surgery: No Genitourinary Surgery: No Gynecologic Surgery: Yes (Tubal ligation) Hysterectomy: No Insulin Pump: No Joint Replacement: No Neurologic Surgery: No Oral Surgery: No Pacemaker: No Thoracic Surgery: No Other Surgery: Yes (SEVERED ACHILLES TENDON - CASTED) Social History Alcohol Use: Yes (2 drinks each night) Tobacco Use: No (quit in her 50's) Substance Use: No Allergies-Medications (Allergen,Severity, Reaction): Coded Allergies: Sulfa (Sulfonamide Antibiotics) (Verified Allergy, Unknown, Doesn't remember, 02/05/18) codeine (Verified Allergy, Unknown, Doesn't remember, 4/16/18) Reported Meds & Prescriptions Reported Meds & Active Scripts Active Azithromycin 250 Mg Tab 250 Mg PO DAILY Walker Rolling/GetGo (Device) 1 Mis Mis Ea .XX DIRECTED Reported Vesicare (Solifenacin) 5 Mg Tab 5 Mg PO DAILY Fluoxetine (Fluoxetine HCl) 20 Mg Capsule 20 Mg PO DAILY Prednisone 10 Mg Tab 10 Mg PO DAILY Diltiazem CD 24 HR 240 Mg Caper 240 Mg PO DAILY Symbicort Inh (Budesonide/Formoterol Fumarate) 80-4.5 Mcg/Act Aero 2 Puff INH Q12HR Aspirin 81 Mg Chew 81 Mg CHEW DAILY Methotrexate 2.5 Mg Tab 2.5 Mg PO Q7D Leflunomide 20 Mg Tab 20 Mg PO DAILY Folic Acid 400 Mcg Tab 400 Mcg PO DAILY Protonix (Pantoprazole Sodium) 40 Mg Tab 40 Mg PO DAILY Review of Systems General / Constitutional: No: Fever, Chills Eyes: No: Diploplia, Blurred Vision HENT: No: Headaches, Vertigo Cardiovascular: No: Chest Pain or Discomfort, Palpitations Respiratory: Positive: Cough, Shortness of Breath Gastrointestinal: No: Vomiting, Diarrhea Genitourinary: No: Urgency, Frequency Musculoskeletal: No: Myalgias Skin: No Rash, No Itching Neurologic: Positive: Weakness Psychiatric: No: Anxiety Endocrine: No: Heat Intolerance Hematologic/Lymphatic: No: Easy Bruising Physical Exam Narrative GENERAL: Thin female in moderate respiratory distress SKIN: Focused skin assessment warm/dry. HEAD: Atraumatic. Normocephalic. EYES: Pupils equal and round. No scleral icterus. No injection or drainage. ENT: No nasal bleeding or discharge. Mucous membranes pink and moist. NECK: Trachea midline. No JVD. CARDIOVASCULAR: Regular rate and rhythm. No murmur appreciated. RESPIRATORY: No accessory muscle use. Clear to auscultation. Breath sounds equal bilaterally. GASTROINTESTINAL: Abdomen soft, non-tender, nondistended. Hepatic and splenic margins not palpable. MUSCULOSKELETAL: No obvious deformities. No clubbing. No cyanosis. No edema. NEUROLOGICAL: Awake and alert. No obvious cranial nerve deficits. Motor grossly within normal limits. Normal speech. PSYCHIATRIC: Appropriate mood and affect; insight and judgment normal. Data Data Last Documented VS Vital Signs Date Time Temp Pulse Resp B/P (MAP) Pulse Ox O2 Delivery O2 Flow Rate FiO2 02/05/18 12:57 93 18 97 BiPAP 35 02/05/18 12:35 165/86 (112) 02/05/18 11:43 2.00 02/05/18 11:15 98.0 Orders Orders Electrocardiogram (02/05/18 11:03) Complete Blood Count With Diff (02/05/18 11:03) Basic Metabolic Panel (Bmp) (02/05/18 11:03) Troponin I (02/05/18 11:03) B-Type Natriuretic Peptide (02/05/18 11:03) Magnesium (Mg) (02/05/18 11:03) Chest, Single Ap (02/05/18 11:03) Albuterol-Ipratropium Neb (Duoneb Neb) (02/05/18 11:15) Potassium Chloride (Kcl) (02/05/18 12:15) Arterial Blood Gas (Abg) (02/05/18 12:18) Labs Laboratory Tests Test 02/05/18 11:13 02/05/18 12:58 White Blood Count 12.9 TH/MM3 Red Blood Count 4.13 MIL/MM3 Hemoglobin 11.1 GM/DL Hematocrit 36.1 % Mean Corpuscular Volume 87.5 FL Mean Corpuscular Hemoglobin 26.8 PG Mean Corpuscular Hemoglobin Concent 30.6 % Red Cell Distribution Width 21.0 % Platelet Count 257 TH/MM3 Mean Platelet Volume 7.4 FL Neutrophils (%) (Auto) 84.9 % Lymphocytes (%) (Auto) 7.2 % Monocytes (%) (Auto) 7.7 % Eosinophils (%) (Auto) 0.0 % Basophils (%) (Auto) 0.2 % Neutrophils # (Auto) 11.0 TH/MM3 Lymphocytes # (Auto) 0.9 TH/MM3 Monocytes # (Auto) 1.0 TH/MM3 Eosinophils # (Auto) 0.0 TH/MM3 Basophils # (Auto) 0.0 TH/MM3 CBC Comment AUTO DIFF Differential Comment AUTO DIFF CONFIRMED Platelet Estimate NORMAL Platelet Morphology Comment NORMAL Ovalocytes 2+ Crenated Cell 1+ Blood Urea Nitrogen 11 MG/DL Creatinine 0.46 MG/DL Random Glucose 121 MG/DL Calcium Level 8.5 MG/DL Magnesium Level 2.1 MG/DL Sodium Level 139 MEQ/L Potassium Level 3.3 MEQ/L Chloride Level 105 MEQ/L Carbon Dioxide Level 27.2 MEQ/L Anion Gap 7 MEQ/L Estimat Glomerular Filtration Rate 131 ML/MIN Troponin I LESS THAN 0.02 NG/ML B-Type Natriuretic Peptide 90 PG/ML Blood Gas Puncture Site RT RADIAL Blood Gas Patient Temperature 98.6 Blood Gas HCO3 26 mmol/L Blood Gas Base Excess 1.6 mmol/L Blood Gas Oxygen Saturation 91 % Arterial Blood pH 7.40 Arterial Blood Partial Pressure CO2 43 mmHG Arterial Blood Partial Pressure O2 75 mmHG Arterial Blood Oxygen Content 14.4 Vol % Arterial Blood Carboxyhemoglobin 1.1 % Arterial Blood Methemoglobin 2.0 % Blood Gas Hemoglobin 11.2 G/DL Oxygen Delivery Device BIPAP Blood Gas Ventilator Setting 10 IPAP/ 5 EPAP Blood Gas Inspired Oxygen 35 % [facility] Medical Decision Making Medical Screen Exam Complete: Yes Emergency Medical Condition: Yes Medical Record Reviewed: Yes Differential Diagnosis Differential includes COPD exacerbation, pneumonia, CHF Narrative Course Chest x-ray shows mild compensated cardiomegaly. The BNP is 90. Patient has been given repeated nebs still complaining of dyspnea. She has been placed on BiPAP which has provided some relief. Her O2 sat on the BiPAP is 97%. Diagnosis Primary Impression: Chronic obstructive pulmonary disease with acute exacerbation Shahzad Nation MD Feb 05, 2018 11:06
[2018-02-05] MEDS ORDERED: RESP: ALBUTEROL 2.5 MG/IPRATROPIUM 0.5 MG NEB (SCH) NEB ONE (11:15)
[2018-02-05 11:20] LABS: BASOPHIL % 0.2 % (0.0-2.0); HEMATOCRIT 36.1 % (35.0-46.0); HEMOGLOBIN 11.1 GM/DL (11.6-15.3); LYMPH % 7.2 % (9.0-44.0); LYMPHOCYTE # 0.9 TH/MM3 (1.0-4.8); MEAN CELL VOLUME 87.5 FL (80.0-100.0); MEAN CORPUSCULAR HEMOGLOBIN 26.8 PG (27.0-34.0); MEAN CORPUSCULAR HGB CONC 30.6 % (32.0-36.0); MEAN PLATELET VOLUME 7.4 FL (7.0-11.0); MONO % 7.7 % (0.0-8.0); NEUT % 84.9 % (16.0-70.0); PLATELET COUNT 257 TH/MM3 (150-450); RED BLOOD COUNT 4.13 MIL/MM3 (4.00-5.30); WHITE BLOOD COUNT 12.9 TH/MM3 (4.0-11.0)
[2018-02-05 11:26] LABS: CHLORIDE 105 MEQ/L (98-107); SODIUM (NA) 139 MEQ/L (136-145)
[2018-02-05 11:28] LABS: CALCIUM 8.5 MG/DL (8.5-10.1)
[2018-02-05 11:29] LABS: BICARBONATE 27.2 MEQ/L (21.0-32.0); BLOOD UREA NITROGEN 11 MG/DL (7-18); GLUCOSE,RANDOM 121 MG/DL (74-106); MAGNESIUM 2.1 MG/DL (1.5-2.5)
[2018-02-05 11:32] LABS: CREATININE 0.46 MG/DL (0.50-1.00); GLOMERULAR FILTRATION RATE 131 ML/MIN (>89)
[2018-02-05 11:37] LABS: TROPONIN I LESS THAN 0.02 NG/ML (0.02-0.05)
--- NOTE | 2018-02-05 11:38 | RADRPT ---
EXAM DATE/TIME: 02/05/2018 11:18 [place] COMPARISON: CHEST SINGLE AP, February 01, 2018, 13:42. INDICATIONS : PT having SOB for 3 days. Pt is a former smoker, quit 30 years ago. MEDICAL HISTORY : None. SURGICAL HISTORY : None. ENCOUNTER: Initial ACUITY: 3 days PAIN SCORE: 0/10 LOCATION: Bilateral chest FINDINGS: Mild compensated cardiomegaly without failure, effusion or infiltrate. Lungs are clear. Macro bones CONCLUSION: Mild compensated cardiomegaly. Naren Ahmadi MD FACR on February 05, 2018 at 11:36 Board Certified Radiologist. This report was verified electronically.
[2018-02-05] MEDS ORDERED: POTASSIUM CHLORIDE 20 MEQ CONTROLLED RELEASE TAB PO ONE (12:15)
[2018-02-05 12:25] LABS: OVALOCYTES 2+ (NORMAL)
[2018-02-05] MEDS: DOXYCYCLINE HYCLATE 100 MG TAB PO SCH ×2 (14:15→21:29)
[2018-02-05] MEDS ORDERED: RESP: ALBUTEROL 2.5 MG/3 ML NEB (PRN) INH (14:15)
[2018-02-05] MEDS ORDERED: METHOTREXATE 2.5 MG TAB PO SCH (14:30)
--- NOTE | 2018-02-05 14:32 | HHI.HP ---
[facility] Roscoe Burciaga MD Admission Diagnosis COPD EXACERBATION Diagnoses: Chief Complaint: Shortness of breath Travel History International Travel<30 Days: No Contact w/Intl Traveler <30 Da: No Traveled to Known Affected Are: No History of Present Illness This patient is an 82-year-old female with known history of COPD on home O2 who comes in complaining of increased dyspnea on exertion and shortness of breath over the weekend. She was discharged from the hospital 3 days ago and noticed that she began having increased cough and increased work of breathing so she came back to the hospital today. She is quite short of breath and started on BiPAP with some improvement. Patient at this time is admitted to the hospital due to acute respiratory failure severe COPD exacerbation Review of Systems Constitutional: DENIES: Diaphoretic episodes, Fatigue, Fever, Weight gain, Weight loss, Chills, Dizziness, Change in appetite, Night Sweats Endocrine: DENIES: Abnorml menstrual pattern, Heat/cold intolerance, Polydipsia , Polyuria, Polyphagia Eyes: DENIES: Blurred vision, Diplopia, Eye inflammation, Eye pain, Vision loss , Photosensitivity, Double Vision Ears, nose, mouth, throat: DENIES: Tinnitus, Hearing loss, Vertigo, Nasal discharge, Oral lesions, Throat pain, Hoarseness, Ear Pain, Running Nose, Epistaxis, Sinus Pain, Toothache, Odynophagia Respiratory: DENIES: Apneas, Cough, Snoring, Wheezing, Hemoptysis, Sputum production, Shortness of breath Cardiovascular: COMPLAINS OF: Dyspnea on Exertion, DENIES: Chest pain, Palpitations, Syncope, PND, Lower Extremity Edema, Orthopnea, Claudication Gastrointestinal: DENIES: Abdominal pain, Black stools, Bloody stools, Constipation, Diarrhea, Nausea, Vomiting, Difficulty Swallowing, Anorexia Genitourinary: DENIES: Abnormal vaginal bleeding, Dysmenorrhea, Dyspareunia, Sexual dysfunction, Urinary frequency, Urinary incontinence, Urgency, Hematuria , Dysuria, Nocturia, Vaginal discharge Musculoskeletal: DENIES: Joint pain, Muscle aches, Stiffness, Joint Swelling, Back pain, Neck pain Integumentary: DENIES: Abnormal pigmentation, Pruritus, Rash, Nail changes, Breast masses, Breast skin changes, Nipple discharge Hematologic/lymphatic: DENIES: Bruising, Lymphadenopathy Immunologic/allergic: DENIES: Eczema, Urticaria Psychiatric: DENIES: Anxiety, Confusion, Mood changes, Depression, Hallucinations, Agitation, Suicidal Ideation, Homicidal Ideation, Delusions Except as stated in HPI: all other systems reviewed are Neg Past Family Social History Past Medical History COPD Tachycardia Psoriatic arthritis Past Surgical History Tubal ligation Achilles heel surgery Reported Medications Reviewed in the EMR Allergies: Coded Allergies: Sulfa (Sulfonamide Antibiotics) (Verified Allergy, Unknown, Doesn't remember, 02/05/18) codeine (Verified Allergy, Unknown, Doesn't remember, 02/05/18) Active Ordered Medications Reviewed in the EMR Family History Hypertension Social History Lives with her spouse, home O2 No recent travel No alcohol or tobacco dependency currently Physical Exam Vital Signs Vital Signs Date Time Temp Pulse Resp B/P (MAP) Pulse Ox O2 Delivery O2 Flow Rate FiO2 02/05/18 13:35 97 18 183/86 (118) 97 BiPAP 02/05/18 12:57 93 18 97 BiPAP 35 02/05/18 12:38 96 BiPAP 35 02/05/18 12:37 95 35 02/05/18 12:35 92 16 165/86 (112) 97 BiPAP 35 02/05/18 11:43 96 20 167/78 (107) 96 Nasal Cannula 2.00 02/05/18 11:15 98 Nasal Cannula 2.00 02/05/18 11:15 98.0 92 22 143/67 (92) 95 Nasal Cannula 2.00 02/05/18 10:49 24 94 Nasal Cannula 2.00 02/05/18 10:49 102 24 143/69 (93) 94 Nasal Cannula 2.00 02/05/18 10:30 98.1 102 24 189/87 (121) 96 Physical Exam GENERAL: This is a well-nourished, well-developed patient on BiPAP SKIN: No rashes, ecchymoses or lesions. Cool and dry. HEAD: Atraumatic. Normocephalic. No temporal or scalp tenderness. EYES: Pupils equal round and reactive. Extraocular motions intact. No scleral icterus. No injection or drainage. ENT: Nose without bleeding, purulent drainage or septal hematoma. Throat without erythema, tonsillar hypertrophy or exudate. Uvula midline. Airway patent. NECK: Trachea midline. No JVD or lymphadenopathy. Supple, nontender, no meningeal signs. CARDIOVASCULAR: Regular rate and rhythm without murmurs, gallops, or rubs. RESPIRATORY: Decreased airflow bilaterally GASTROINTESTINAL: Abdomen soft, non-tender, nondistended. No hepato-splenomegaly , or palpable masses. No guarding. MUSCULOSKELETAL: Extremities without clubbing, cyanosis, or edema. No joint tenderness, effusion, or edema noted. No calf tenderness. Negative Homans sign bilaterally. NEUROLOGICAL: Awake and alert. Cranial nerves II through XII intact. Motor and sensory grossly within normal limits. Five out of 5 muscle strength in all muscle groups. Normal speech. Laboratory Laboratory Tests Test 02/05/18 11:13 02/05/18 12:58 White Blood Count 12.9 Red Blood Count 4.13 Hemoglobin 11.1 Hematocrit 36.1 Mean Corpuscular Volume 87.5 Mean Corpuscular Hemoglobin 26.8 Mean Corpuscular Hemoglobin Concent 30.6 Red Cell Distribution Width 21.0 Platelet Count 257 Mean Platelet Volume 7.4 Neutrophils (%) (Auto) 84.9 Lymphocytes (%) (Auto) 7.2 Monocytes (%) (Auto) 7.7 Eosinophils (%) (Auto) 0.0 Basophils (%) (Auto) 0.2 Neutrophils # (Auto) 11.0 Lymphocytes # (Auto) 0.9 Monocytes # (Auto) 1.0 Eosinophils # (Auto) 0.0 Basophils # (Auto) 0.0 CBC Comment AUTO DIFF Differential Comment AUTO DIFF CONFIRMED Platelet Estimate NORMAL Platelet Morphology Comment NORMAL Ovalocytes 2+ Crenated Cell 1+ Blood Urea Nitrogen 11 Creatinine 0.46 Random Glucose 121 Calcium Level 8.5 Magnesium Level 2.1 Sodium Level 139 Potassium Level 3.3 Chloride Level 105 Carbon Dioxide Level 27.2 Anion Gap 7 Estimat Glomerular Filtration Rate 131 Troponin I LESS THAN 0.02 B-Type Natriuretic Peptide 90 Blood Gas Puncture Site RT RADIAL Blood Gas Patient Temperature 98.6 Blood Gas HCO3 26 Blood Gas Base Excess 1.6 Blood Gas Oxygen Saturation 91 Arterial Blood pH 7.40 Arterial Blood Partial Pressure CO2 43 Arterial Blood Partial Pressure O2 75 Arterial Blood Oxygen Content 14.4 Arterial Blood Carboxyhemoglobin 1.1 Arterial Blood Methemoglobin 2.0 Blood Gas Hemoglobin 11.2 Oxygen Delivery Device BIPAP Blood Gas Ventilator Setting 10 IPAP/ 5 EPAP Blood Gas Inspired Oxygen 35 Result Diagram: 02/05/18 1113 02/05/18 1113 Imaging Last Impressions Chest X-Ray 02/05/18 1103 Signed Impressions: Service Date/Time: Monday, February 05, 2018 11:18 - CONCLUSION: Mild compensated cardiomegaly. Naren Ahmadi MD FACR Septic Shock Reassessment Septic shock perfusion: reassessment completed Caprini VTE Risk Assessment Caprini VTE Risk Assessment: Mod/High Risk (score >= 2) Caprini Risk Assessment Model Point Value = 1 Point Value = 2 Point Value = 3 Point Value = 5 Age 41-60 Minor surgery BMI > 25 kg/m2 Swollen legs Varicose veins or History of unexplained or recurrent spontaneous Oral contraceptives or hormone replacement Sepsis (< 1 month) Serious lung disease, including pneumonia (< 1 month) Abnormal pulmonary function Acute myocardial infarction Congestive heart failure (< 1 month) History of inflammatory bowel disease Medical patient at bed rest Age 61-74 Arthroscopic surgery Major open surgery (> 45 min) Laparoscopic surgery (> 45 min) Malignancy Confined to bed (> 72 hours) Immobilizing plaster cast Central venous access Age >= 75 History of VTE Family history of VTE Factor V Leiden Prothrombin [id number] Lupus anticoagulant Anticardiolipin antibodies Elevated serum homocysteine Heparin-induced thrombocytopenia Other congenital or acquired thrombophilia Stroke (< 1 month) Elective arthroplasty Hip, pelvis, or leg fracture Acute spinal cord injury (< 1 month) Prophylaxis Regimen Total Risk Factor Score Risk Level Prophylaxis Regimen 0-1 Low Early ambulation 2 Moderate Order ONE of the following: *Sequential Compression Device (SCD) *Heparin 5000 units SQ BID 3-4 Higher Order ONE of the following medications: *Heparin 5000 units SQ TID *Enoxaparin/Lovenox 40 mg SQ daily (WT < 150 kg, CrCl > 30 mL/min) *Enoxaparin/Lovenox 30 mg SQ daily (WT < 150 kg, CrCl > 10-29 mL/min) *Enoxaparin/Lovenox 30 mg SQ BID (WT < 150 kg, CrCl > 30 mL/min) AND/OR *Sequential Compression Device (SCD) 5 or more Highest Order ONE of the following medications: *Heparin 5000 units SQ TID (Preferred with Epidurals) *Enoxaparin/Lovenox 40 mg SQ daily (WT < 150 kg, CrCl > 30 mL/min) *Enoxaparin/Lovenox 30 mg SQ daily (WT < 150 kg, CrCl > 10-29 mL/min) *Enoxaparin/Lovenox 30 mg SQ BID (WT < 150 kg, CrCl > 30 mL/min) AND *Sequential Compression Device (SCD) Assessment and Plan Problem List: (1) COPD (chronic obstructive pulmonary disease) ICD Code: J44.9 - Chronic obstructive pulmonary disease, unspecified Status: Acute Plan: With acute respiratory failure currently on BiPAP Continue bronchodilators and IV steroids Continue surveillance in the ICU Continue empiric antibiotics Assessment and Plan We will continue with home medications for psoriatic arthritis (methotrexate and folic acid) Follow-up Code Status DNR Discussed Condition With Patient, ER md Physician Certification 2 Midnight Certification Type: Admission for Inpatient Services Order for Inpatient Services The services are ordered in accordance with Medicare regulations or non- Medicare payer requirements, as applicable. In the case of services not specified as inpatient-only, they are appropriately provided as inpatient services in accordance with the 2-midnight benchmark. Estimated LOS (days): 4 4 days is the estimated time the patient will need to remain in the hospital, assuming treatment plan goals are met and no additional complications. Post-Hospital Plan: Not yet determined Anjelica Wood MD Feb 05, 2018 14:31
[2018-02-05] MEDS: ENOXAPARIN SODIUM 40 MG/0.4 ML SYRINGE SQ SCH (14:39)
[2018-02-05] MEDS ORDERED: CHLORHEXIDINE GLUCONATE 2 % 1 PACK (2 CLOTHS)(extra cloths) TOPICAL PRN (16:30)
[2018-02-05] MEDS ORDERED: METHOTREXATE SOD PF 50 MG/2 ML VIAL IM SCH (17:00)
--- NOTE | 2018-02-05 17:22 | EKG ---
Date Performed: 02/05/2018 Time Performed: 11:12:45 PTAGE: 82 years EKG: Sinus rhythm WITH OCCASIONAL SUPRAVENTRICULAR PREMATURE COMPLEXES NONSPECIFIC T-WAVE ABNORMALITY Compared to prev ious tracing, sinus rhythm has replaced multifocal atrial tachycardia BORDERLINE ECG PREVIOUS TRACING : 02/01/2018 13.38 DOCTOR: Fuad Coleman Interpretating Date/Time 02/05/2018 17:21:24
[2018-02-05] MEDS: methylPREDNISolone SOD SUCC 125 MG/2 ML VIAL IV PUSH SCH ×2 (17:27→21:28)
[2018-02-05] MEDS ORDERED: hydrALAZINE HCL 20 MG/ML VIAL IV PRN (18:00)
[2018-02-05] MEDS: SODIUM CHLORIDE 0.9% FLUSH 10 ML FLUSH IV FLUSH SCH (19:35)
[2018-02-05] MEDS: BUDESONIDE-FORMOTEROL 80/4.5 MCG INHALER INH SCH (19:37)
[2018-02-05] MEDS: RESP: ALBUTEROL 2.5 MG/IPRATROPIUM 0.5 MG NEB (SCH) INH (20:01)
[2018-02-05] MEDS: CHLORHEXIDINE GLUCONATE 2 % 1 PACK (2 CLOTHS)(taper/protocol) TOPICAL SCH (21:31)
[2018-02-06] VITALS (32 sets, daily range): BP systolic 99–202; BP diastolic 58–106; PULSE 81–138; RESP 16–47; TEMP 97.7–98; O2SAT 90–98
[2018-02-06] MEDS: SODIUM CHLORIDE 0.9% FLUSH 10 ML FLUSH IV FLUSH PRN ×3 (01:13→03:30)
[2018-02-06] MEDS: methylPREDNISolone SOD SUCC 125 MG/2 ML VIAL IV PUSH SCH ×4 (02:16→21:41)
[2018-02-06] MEDS ORDERED: LORazepam 2 MG/ML VIAL IV PUSH ONE (03:30)
[2018-02-06 05:30] LABS: BICARBONATE 25.1 MEQ/L (21.0-32.0); CALCIUM 8.7 MG/DL (8.5-10.1)
[2018-02-06 05:34] LABS: CREATININE 0.51 MG/DL (0.50-1.00)
[2018-02-06] MEDS: RESP: ALBUTEROL 2.5 MG/IPRATROPIUM 0.5 MG NEB (SCH) INH ×3 (08:18→19:45)
[2018-02-06] MEDS: BUDESONIDE-FORMOTEROL 80/4.5 MCG INHALER INH SCH ×2 (08:46→20:10)
[2018-02-06] MEDS: DILTIAZEM-CD 240 MG CAP ER PO SCH (08:47)
[2018-02-06] MEDS: FOLIC ACID 1 MG TAB PO SCH (08:47)
[2018-02-06] MEDS: FLUoxetine HCL 20 MG CAP PO SCH (08:47)
[2018-02-06] MEDS: ASPIRIN 81 MG CHEW TAB CHEW SCH (08:47)
[2018-02-06] MEDS: PANTOPRAZOLE SOD 40 MG DELAYED RELEASE TAB PO SCH (08:47)
[2018-02-06] MEDS: SODIUM CHLORIDE 0.9% FLUSH 10 ML FLUSH IV FLUSH SCH ×2 (08:47→20:08)
[2018-02-06] MEDS: DOXYCYCLINE HYCLATE 100 MG TAB PO SCH ×2 (08:47→20:08)
[2018-02-06] MEDS: TOLTERODINE TARTRATE 2 MG CAP LA PO SCH (08:48)
[2018-02-06] MEDS ORDERED: LEFLUNOMIDE 20 MG PO SCH (09:00)
[2018-02-06] MEDS ORDERED: [UNRECOGNIZED DRUG - OTHER] PO SCH (09:00)
[2018-02-06] MEDS ORDERED: INFLUENZA VIRUS VACCINE (QUADRIVALENT) 0.5 ML SYR IM ONE (10:00)
--- NOTE | 2018-02-06 13:13 | HHI.PR ---
Subjective Remarks Patient seen and evaluated today for COPD exacerbation Overnight quite hypoxemic with increased anxiety Family and patient have met with hospice through the primary care doctor would like to pursue hospice planning Objective Vitals Vital Signs Date Time Temp Pulse Resp B/P (MAP) Pulse Ox O2 Delivery O2 Flow Rate FiO2 02/06/18 11:00 100 17 109/59 (76) 96 02/06/18 10:00 112 02/06/18 10:00 112 26 129/59 (82) 95 02/06/18 09:00 114 32 145/68 (93) 95 02/06/18 08:45 96 Nasal Cannula 3.00 02/06/18 08:14 98 35 02/06/18 08:00 100 02/06/18 08:00 97.7 100 17 166/80 (108) 97 02/06/18 08:00 97 Bi-Pap 35 02/06/18 07:00 96 16 148/95 (112) 97 02/06/18 06:00 99 02/06/18 06:00 108 26 128/73 (91) 97 02/06/18 05:00 108 02/06/18 05:00 106 18 113/63 (80) 96 02/06/18 04:00 95 Bi-Pap 35 02/06/18 04:00 98.0 126 26 146/74 (98) 95 02/06/18 03:40 138 26 157/82 (107) 94 02/06/18 03:37 95 35 02/06/18 03:26 106 47 202/106 (138) 90 02/06/18 03:10 128 02/06/18 03:00 96 16 152/78 (102) 95 02/06/18 02:10 91 Bi-Pap 35 02/06/18 02:00 95 02/06/18 02:00 92 16 121/62 (81) 96 02/06/18 01:25 95 Nasal Cannula 2.00 02/06/18 01:15 96 Nasal Cannula 2.00 02/06/18 01:00 96 18 175/98 (123) 96 02/06/18 00:00 96 Bi-Pap 35 02/06/18 00:00 88 02/06/18 00:00 98.0 81 20 164/86 (112) 95 02/05/18 22:00 88 20 160/86 (110) 95 02/05/18 22:00 88 02/05/18 21:44 96 35 02/05/18 21:30 95 Bi-Pap 35 02/05/18 21:00 90 20 155/75 (101) 95 02/05/18 20:01 95 Nasal Cannula 2.00 02/05/18 20:00 98.1 88 20 160/78 (105) 95 02/05/18 20:00 90 02/05/18 19:30 96 Nasal Cannula 2.00 02/05/18 19:00 95 Bi-Pap 35 02/05/18 19:00 88 20 160/86 (110) 95 02/05/18 18:13 86 18 154/83 (106) 95 02/05/18 18:00 86 02/05/18 18:00 84 18 159/81 (107) 95 02/05/18 17:27 88 15 174/79 (110) 96 02/05/18 17:23 90 14 170/86 (114) 96 02/05/18 17:23 90 14 170/86 (114) 96 02/05/18 17:00 92 16 96 02/05/18 17:00 98.3 92 16 96 02/05/18 16:00 96 19 148/78 (101) 95 02/05/18 15:54 95 02/05/18 15:50 97 02/05/18 15:49 95 20 164/90 (114) 97 BiPAP 35 02/05/18 14:05 101 18 168/90 (116) 97 BiPAP 35 02/05/18 13:35 97 18 183/86 (118) 97 BiPAP I/O 02/05/18 02/05/18 02/05/18 02/06/18 02/06/18 02/06/18 07:00 15:00 23:00 07:00 15:00 23:00 Intake Total 120 ml 100 ml 100 ml Output Total 350 ml 150 ml Balance 120 ml -250 ml -50 ml Intake Oral 120 ml 100 ml 100 ml Output Urine Total 350 ml 150 ml # Voids 1 1 # Bowel Movements 0 0 Result Diagram: 02/05/18 1113 02/06/18 0423 A/P Problem List: (1) COPD (chronic obstructive pulmonary disease) ICD Code: J44.9 - Chronic obstructive pulmonary disease, unspecified Status: Acute Plan: With acute respiratory failure currently on BiPAP Continue bronchodilators and IV steroids Continue surveillance in the ICU Continue empiric antibiotics consult Hospice per family request Discharge Planning Hospice planning initiated Anjelica Wood MD Feb 06, 2018 13:13
[2018-02-06] MEDS: ENOXAPARIN SODIUM 40 MG/0.4 ML SYRINGE SQ SCH (15:19)
[2018-02-06] MEDS: ALPRAZolam 0.5 MG TAB PO PRN ×2 (15:28→23:59)
--- NOTE | 2018-02-06 18:48 | MB ---
cc: Yahir Sinclair MD, [place] W MD DATE: 02/06/2018 REASON FOR CONSULTATION: COPD exacerbation and acute respiratory failure. HISTORY OF PRESENT ILLNESS: Mrs. Govea is an 82-year-old female with known history of severe COPD, chronic respiratory failure, on home oxygen therapy admitted with increasing shortness of breath progressively worse for 2-3 days, cough, minimal expectoration of whitish occasionally yellowish mucoid sputum. Denies history of fever, chills, hemoptysis, has no history of TB or previous industrial exposure. PAST MEDICAL HISTORY: COPD and psoriatic arthritis, previously had a tubal ligation and Achilles tendon repair. CURRENT MEDICATIONS: 1. Xanax p.r.n. 2. Cardizem orally 3. Prozac. 4. Folic acid. 5. Protonix. 6. Detrol 7. Symbicort inhaler. 8. Albuterol ipratropium p.r.n. 9. Methotrexate, 10. Solu-Medrol intravenously. ALLERGIES: SULFA DRUGS, CODEINE. FAMILY HISTORY: Noncontributory. SOCIAL HISTORY: Remote smoking history, has not smoked for years. Does not use drugs. PHYSICAL EXAMINATION: GENERAL: The patient is alert. VITAL SIGNS: Temperature 97, pulse 90, respiration 18, blood pressure 140/70, oxygen saturation 97% on. oxygen 2 liter nasal cannula. HEENT: Unremarkable. Eyes without icterus. NECK: Without adenopathy, thyroid enlargement. Central trachea. CHEST: No dullness to percussion. Distant breath sounds. CARDIAC: PMI distant. S1, S2 audible, 1/6 ejection systolic murmur left sternal border. ABDOMEN: Lax, bowel sounds audible. No organomegaly. EXTREMITIES: No clubbing, cyanosis or edema. LABORATORY DATA: White count 12,000, hemoglobin 11, hematocrit 36, platelets 257,000. Sodium 140, potassium 3.9, BUN 13, creatinine 0.5. ABG - pH 7.40, pCO2 of 43, pO2 of 75 on BiPAP therapy FIO2 0.35. IMAGING STUDIES Chest x-ray: Mild cardiomegaly, otherwise unremarkable. IMPRESSION: 1. Acute hypoxic respiratory failure. 2. Chronic respiratory failure, on home oxygen therapy. 3. Severe chronic obstructive pulmonary disease. 4. Psoriatic arthritis. PLAN: The patient is somewhat improved since her admission, remains with some use of accessory muscles of respiration. She is to continue her bronchodilator therapy as well as intravenous steroids. Monitor closely in the intensive care setting. BiPAP therapy is used as well, which she uses almost most of time at this point and this will be reduced as the patient's condition hopefully improves. We will follow the course along with you and depending on progress proceed further. I do thank you asking me to partake in Mrs. Govea's care. Yahir Sinclair MD WWW/ , 06:21 PM , 06:46 PM
[2018-02-06] MEDS ORDERED: cefTRIAXone 1,000 MG/NS 100 ML IV SCH ×2 (20:00)
[2018-02-06] MEDS ORDERED: AZITHROMYCIN 500 MG/NS 250 ML IV SCH ×2 (21:00)
[2018-02-07] VITALS (18 sets, daily range): BP systolic 100–143; BP diastolic 54–80; PULSE 76–94; RESP 16–35; TEMP 98–98.5; O2SAT 94–98
[2018-02-07] MEDS: CHLORHEXIDINE GLUCONATE 2 % 1 PACK (2 CLOTHS)(taper/protocol) TOPICAL SCH (03:30)
[2018-02-07] MEDS: methylPREDNISolone SOD SUCC 125 MG/2 ML VIAL IV PUSH SCH ×3 (03:41→14:21)
[2018-02-07] MEDS: SODIUM CHLORIDE 0.9% FLUSH 10 ML FLUSH IV FLUSH PRN (03:42)
[2018-02-07] MEDS: FLUoxetine HCL 20 MG CAP PO SCH (08:38)
[2018-02-07] MEDS: FOLIC ACID 1 MG TAB PO SCH (08:38)
[2018-02-07] MEDS: ASPIRIN 81 MG CHEW TAB CHEW SCH (08:38)
[2018-02-07] MEDS: TOLTERODINE TARTRATE 2 MG CAP LA PO SCH (08:38)
[2018-02-07] MEDS: PANTOPRAZOLE SOD 40 MG DELAYED RELEASE TAB PO SCH (08:38)
[2018-02-07] MEDS: BUDESONIDE-FORMOTEROL 80/4.5 MCG INHALER INH SCH (08:38)
[2018-02-07] MEDS: DILTIAZEM-CD 240 MG CAP ER PO SCH (08:38)
[2018-02-07] MEDS: SODIUM CHLORIDE 0.9% FLUSH 10 ML FLUSH IV FLUSH SCH (08:39)
[2018-02-07] MEDS: DOXYCYCLINE HYCLATE 100 MG TAB PO SCH (08:39)
[2018-02-07] MEDS: ALPRAZolam 0.5 MG TAB PO PRN (08:48)
[2018-02-07] MEDS: RESP: ALBUTEROL 2.5 MG/IPRATROPIUM 0.5 MG NEB (SCH) INH ×2 (09:28→14:24)
[2018-02-07] MEDS ORDERED: Albuterol-Ipratropium Neb INH (13:01)
[2018-02-07] MEDS ORDERED: PRED10PA2 PO (13:01)
[2018-02-07] MEDS ORDERED: DOXY100T PO (13:01)
--- NOTE | 2018-02-07 13:02 | HHI.DCPOC ---
Discharge Care Plan Diagnosis: (1) COPD (chronic obstructive pulmonary disease) Goals to Promote Your Health * To prevent worsening of your condition and complications * To maintain your health at the optimal level Directions to Meet Your Goals Take your medications as prescribed Follow your dietary instruction Follow activity as directed Keep your appointments as scheduled Take your immunizations and boosters as scheduled If your symptoms worsen call your PCP, if no PCP go to Urgent Care Center or Emergency Room Smoking is Dangerous to Your Health. Avoid second hand smoke Call the 24-hour hour crisis hotline for domestic abuse at Anjelica Wood MD Feb 07, 2018 13:02
--- NOTE | 2018-02-07 13:05 | HHI.DS ---
Discharge Summary Admission Date Feb 05, 2018 at 13:30 Discharge Date: Feb 07, 2018 Admitting Diagnosis COPD EXACERBATION (1) COPD (chronic obstructive pulmonary disease) ICD Code: J44.9 - Chronic obstructive pulmonary disease, unspecified Status: Acute Procedures None Brief History - From Admission This patient is an 82-year-old female with known history of COPD on home O2 who comes in complaining of increased dyspnea on exertion and shortness of breath over the weekend. She was discharged from the hospital 3 days ago and noticed that she began having increased cough and increased work of breathing so she came back to the hospital today. She is quite short of breath and started on BiPAP with some improvement. Patient at this time is admitted to the hospital due to acute respiratory failure severe COPD exacerbation CBC/BMP: 02/05/18 1113 02/06/18 0423 Significant Findings Laboratory Tests Test 02/05/18 11:13 02/05/18 12:58 02/05/18 19:40 02/06/18 04:23 White Blood Count 12.9 TH/MM3 (4.0-11.0) Hemoglobin 11.1 GM/DL (11.6-15.3) Mean Corpuscular Hemoglobin 26.8 PG (27.0-34.0) Mean Corpuscular Hemoglobin Concent 30.6 % (32.0-36.0) Red Cell Distribution Width 21.0 % (11.6-17.2) Neutrophils (%) (Auto) 84.9 % (16.0-70.0) Lymphocytes (%) (Auto) 7.2 % (9.0-44.0) Neutrophils # (Auto) 11.0 TH/MM3 (1.8-7.7) Lymphocytes # (Auto) 0.9 TH/MM3 (1.0-4.8) Monocytes # (Auto) 1.0 TH/MM3 (0-0.9) Ovalocytes 2+ (NORMAL) Crenated Cell 1+ (NORMAL) Creatinine 0.46 MG/DL (0.50-1.00) Random Glucose 121 MG/DL (74-106) 219 MG/DL (74-106) Potassium Level 3.3 MEQ/L (3.5-5.1) Troponin I LESS THAN 0.02 NG/ML Arterial Blood Partial Pressure CO2 43 mmHG (38-42) Blood Gas Hemoglobin 11.2 G/DL (12.0-16.0) Imaging Last Impressions Chest X-Ray 02/05/18 1103 Signed Impressions: Service Date/Time: Monday, February 05, 2018 11:18 - CONCLUSION: Mild compensated cardiomegaly. Naren Ahmadi MD FACR PE at Discharge GENERAL: This is a well-nourished, well-developed patient, increased accessory muscle use CARDIOVASCULAR: Regular rate and rhythm without murmurs, gallops, or rubs. RESPIRATORY: Decreased airflow bilaterally GASTROINTESTINAL: Abdomen soft, non-tender, nondistended. Normal active bowel sounds MUSCULOSKELETAL: Extremities without clubbing, cyanosis, or edema. NEURO: Alert & Oriented x4 to person, place, time, situation. Moves all ext x4 Pt update on day of discharge Patient still hungry for air, short of breath with accessory muscle use and with somnolence. Hospital Course Patient is a 82-year-old female with COPD and stage Patient continues to have severe dyspnea and air hunger with multiple episodes of respiratory distress. She does agree for hospice care and this has been obtained and the patient and family are agreeable for hospice Pt Condition on Discharge: Good Discharge Disposition: Hospice/ Home Discharge Time: <= 30 minutes Discharge Instructions DIET: Follow Instructions for: As Tolerated, No Restrictions Activities you can perform: Regular-No Restrictions New Medications: Prednisone (48) 10 mg tab Dose Pack (Prednisone (48) 10 mg tab Dose Pack) 10 Mg Dspk 10 MG PO DIRECTED for Inflammation, #1 DSPK 0 Refills Doxycycline Hyclate (Doxycycline Hyclate) 100 Mg Tab 100 MG PO Q12HR for Infection, #10 TAB [Albuterol-Ipratropium Neb] () 1 AMPULE NEBU 1 AMPULE INH Q6HR WHILE AWAKE NEB for Shortness of Breath, #90 AMPULE Continued Medications: Aspirin (Aspirin) 81 Mg Chew 81 MG CHEW DAILY, TAB 0 Refills Budesonide-Formoterol Inh (Symbicort Inh) 80-4.5 Mcg/Act Aero 2 PUFF INH Q12HR for Asthma Management, #1 INHALER 0 Refills Diltiazem CD 24 HR (Diltiazem CD 24 HR) 240 Mg Caper 240 MG PO DAILY, #30 CAP 0 Refills Fluoxetine (Fluoxetine) 20 Mg Capsule 20 MG PO DAILY, #30 CAP 0 Refills Folic Acid (Folic Acid) 400 Mcg Tab 400 MCG PO DAILY for Nutritional Supplement, TAB 0 Refills Leflunomide (Leflunomide) 20 Mg Tab 20 MG PO DAILY, TAB Methotrexate (Methotrexate) 2.5 Mg Tab 2.5 MG PO Q7D, TAB 0 Refills Pantoprazole (Protonix) 40 Mg Tab 40 MG PO DAILY for Reflux, #30 TAB 0 Refills Solifenacin (Vesicare) 5 Mg Tab 5 MG PO DAILY for Urinary Symptom Managemen, #30 TAB 0 Refills Anjelica Wood MD Feb 07, 2018 13:05
[2018-02-07] MEDS: ENOXAPARIN SODIUM 40 MG/0.4 ML SYRINGE SQ SCH (13:12)
== END 2018-02-07 15:00 | disposition hospice, home (50) | DRG 189 ==
LOC: PHED 10:30 → PHEDA 13:30 → PHICU 15:40
PROVIDERS: ADMIT Hospitalist; ATTEND Hospitalist
PROC: 5A09457 Assistance with Respiratory Ventilation, 24-96 Consecutive Hours, Continuous Positive Airway Pressure (ICD-10-PCS; principal; 2018-02-05)
DX: J96.21 Acute and chronic respiratory failure with hypoxia (principal); J44.1 Chronic obstructive pulmonary disease with (acute) exacerbation; L40.50 Arthropathic psoriasis, unspecified; F41.9 Anxiety disorder, unspecified; F32.9 Major depressive disorder, single episode, unspecified; Z66 Do not resuscitate; Z51.5 Encounter for palliative care; Z87.891 Personal history of nicotine dependence; Z88.2 Allergy status to sulfonamides; Z88.5 Allergy status to narcotic agent; Z99.81 Dependence on supplemental oxygen
CPT/HCPCS: 36600; 71045; 80048; 82805; 83735; 83880; 84484; 85025; 87641; 93005; 94002; 94003; 94640; 94664; 99285; J0360; J0456; J0696; J1650; J2060; J2930; J7050; J7613; J9250